=== PATIENT | male | born 1955 | race Caucasian/White ===

== ENCOUNTER 2018-03-22 17:30 | Inpatient (IN) | payer OTHER ==
--- NOTE | 2018-03-22 18:04 | US ---
EXAMINATION TYPE: US venous doppler duplex LE RT DATE OF EXAM: 03/22/2018 4:49 PM COMPARISON: NONE CLINICAL HISTORY: M79.661 Pain in right lower leg, R22.41 swelling r. SIDE PERFORMED: Right TECHNIQUE: The lower extremity deep venous system is examined utilizing real time linear array sonog geeta with graded compression, doppler sonography and color-flow sonography. VESSELS IMAGED: External Iliac Vein (EIV) Common Femoral Vein Deep Femoral Vein Greater Saphenous Vein * Femoral Vein Popliteal Vein Proximal Calf Veins (* superficial vessels) FINDINGS: Grayscale, color doppler, spectral doppler imaging performed of the deep veins of the lower extremities. There is occlusive thrombus from the common femoral vein contiguously through the proximal calf veins . These deep venous structures are distended with absence of color Doppler flow. IMPRESSION: RIGHT LOWER EXTREMITY: EXTENSIVE OCCLUSIVE ACUTE DEEP VENOUS THROMBUS. Communications note: Called answering service of the ordering provider. Then, at 5:50 PM discussed th e abnormal findings with the area director who had just returned from the Emergency Department - where the patient was just admitted for the abnormal ultrasound results.
--- NOTE | 2018-03-22 19:59 | ED ---
Extremity Problem HPI - General Chief complaint: Extremity Problem,Nontraumatic Stated complaint: Poss DVT Time Seen by Provider: 03/22/18 19:35 Source: patient, RN notes reviewed Mode of arrival: ambulatory Limitations: no limitations - History of Present Illness Initial comments: This is a 62-year-old male who presents to the emergency department with chief complaint of blood clot. Patient states over the weekend he noticed swelling and pressure to his right leg that extends from his calf to his groin. He was seen at his family physician's office today and they sent him into the hospital for ultrasound to rule out a DVT. Ultrasound venous Doppler duplex of the right lower extremity revealed evidence for a contiguous extensive acute deep venous thrombosis extending from the proximal calf veins to the common femoral vein. Patient denies any chest pain or shortness of breath. Denies fevers or chills. He states he would prefer to be discharged home as his insurance does not cover inpatient hospital stays. - Related Data Allergies Allergy/AdvReac Type Severity Reaction Status Date / Time No Known Allergies Allergy Verified 03/22/18 17:55 Review of Systems ROS Statement: Those systems with pertinent positive or pertinent negative responses have been documented in the HPI. ROS Other: All systems not noted in ROS Statement are negative. Past Medical History Past Medical History: No Reported History History of Any Multi-Drug Resistant Organisms: None Reported Past Surgical History: Cholecystectomy, Joint Replacement Additional Past Surgical History / Comment(s): bilateral hip replacement Past Psychological History: No Psychological Hx Reported Smoking Status: Never smoker Past Alcohol Use History: Daily, Occasional Past Drug Use History: None Reported General Exam - General Exam Comments Initial Comments: General: Awake and alert, well-developed; in no apparent distress. HEENT: Head atraumatic, normocephalic. Pupils are equal, round and reactive to light. Extraocular movements intact. Oropharynx moist without erythema or exudate. Neck: Supple. Normal ROM. Cardiovascular: Regular rate and rhythm. No murmurs, rubs or gallops. Chest symmetrical. Respiratory: Lungs clear to auscultation bilaterally. No wheezes, rales or rhonchi. Normal respiratory effort with no use of accessory muscles. Musculoskeletal: Diffuse swelling and tenderness to the right calf. Sensation is intact. Pedal pulses are 2+ equal and palpable bilaterally. Skin: Gustine, warm and dry without rashes or lesions. Neurological: Alert and oriented x3. CN II-XII grossly intact. Speech is fluent and answers are appropriate. No focal neuro deficits. Psychiatric: Normal mood and affect. No overt signs of depression or anxiety noted. Limitations: no limitations Course Vital Signs 03/22/18 17:52 Temperature 98.5 F Pulse Rate 95 Respiratory 20 Rate Blood Pressure 208/109 O2 Sat by Pulse 97 Oximetry Medical Decision Making - Medical Decision Making This is a 62-year-old male who presents to the emergency department with chief complaint of DVT. Patient has an extensive acute deep venous thrombosis extending from the right common femoral vein to the proximal calf veins. Discussed admission with patient who at first is resistant. He states he does not have healthcare coverage for admission to the hospital. Discussed the patient can be written a prescription for Eliquis but will have to sign out AMA. After a couple discussions, patient agrees to be admitted. High intensity heparin is ordered. Patient will be admitted to Dr. Peacock. Patient is in no acute distress. - Radiology Data Radiology results: report reviewed Ultrasound venous Doppler duplex right lower extremity impression: Right lower extremity extensive occlusive acute deep venous thrombosis. This extends from the common femoral vein contiguously through the proximal calf veins. Disposition Clinical Impression: Deep vein thrombosis of lower extremity Disposition: ADMITTED IP TO THIS HOSP Condition: Fair Is patient prescribed a controlled substance at d/c from ED?: No Referrals: Jovany Yadav MD [Primary Care Provider] - 1-2 days Time of Disposition: 20:45
[2018-03-22] MEDS ORDERED: HEPARIN SODIUM,PORCINE 5,000 UNIT/ML 1 ML VIAL IV PRN (20:23)
[2018-03-22] MEDS ORDERED: HEPARIN SODIUM,PORCINE 5,000 UNIT/ML 1 ML VIAL IV ONE (20:23)
[2018-03-22] MEDS ORDERED: ACETAMINOPHEN TAB 325 MG TAB PO PRN (20:43)
[2018-03-22] MEDS ORDERED: IBUPROFEN 400 MG TAB PO PRN (20:43)
[2018-03-22 21:00] LABS: Basophils # (A) 0.1 k/uL (0-0.2); Basophils % (A) 1 %; Eosinophils # (A) 0.2 k/uL (0-0.7); Eosinophils % (A) 3 %; HCT 42.2 % (39.0-53.0); HGB 14.7 gm/dL (13.0-17.5); Lymphocytes # (A) 2.6 k/uL (1.0-4.8); Lymphocytes % (A) 33 %; MCH 32.1 pg (25.0-35.0); MCHC 34.8 g/dL (31.0-37.0); MCV 92.2 fL (80.0-100.0); Mean Platelet Volume 7.8; Monocytes # (A) 0.4 k/uL (0-1.0); Monocytes % (A) 6 %; Neutrophils # (A) 4.3 k/uL (1.3-7.7); Neutrophils % (A) 55 %; Platelet Count 171 k/uL (150-450); RBC 4.58 m/uL (4.30-5.90); RDW 13.4 % (11.5-15.5); WBC 7.8 k/uL (3.8-10.6)
[2018-03-22] MEDS ORDERED: cloNIDine HCL 0.2 MG TAB PO STA (21:02)
[2018-03-22 21:09] LABS: ALT 96 U/L (21-72); AST 108 U/L (17-59); Albumin 4.6 g/dL (3.5-5.0); Alkaline Phosphatase 62 U/L (38-126); Anion Gap 12 mmol/L; Blood Urea Nitrogen 20 mg/dL (9-20); Calcium 10.1 mg/dL (8.4-10.2); Carbon Dioxide 24 mmol/L (22-30); Chloride 105 mmol/L (98-107); Glucose 139 mg/dL (74-99); Sodium 141 mmol/L (137-145); Total Bilirubin 0.9 mg/dL (0.2-1.3); Total Protein 8.4 g/dL (6.3-8.2)
[2018-03-22 21:11] LABS: Potassium 4.4 mmol/L (3.5-5.1)
[2018-03-22 21:12] LABS: Partial Thromboplastin Time 22.1 sec (22.0-30.0); Prothrombin Time 10.1 sec (9.0-12.0)
[2018-03-22] MEDS: HEPARIN SOD,PORK IN 0.45% NACL 25,000 UNIT in 0.45% NACL 1 500ML.BAG IV SCH (21:36)
[2018-03-22] MEDS: SODIUM CHLORIDE 0.9% 1,000 ML IV SCH (21:41)
[2018-03-23 03:00] LABS: Basophils # (A) 0.1 k/uL (0-0.2); Basophils % (A) 1 %; Eosinophils # (A) 0.4 k/uL (0-0.7); Eosinophils % (A) 6 %; HCT 40.1 % (39.0-53.0); HGB 13.2 gm/dL (13.0-17.5); Lymphocytes % (A) 40 %; MCH 30.6 pg (25.0-35.0); MCV 92.8 fL (80.0-100.0); Mean Platelet Volume 7.1; Monocytes # (A) 0.4 k/uL (0-1.0); Monocytes % (A) 5 %; Neutrophils # (A) 3.5 k/uL (1.3-7.7); Neutrophils % (A) 46 %; Platelet Count 145 k/uL (150-450); RBC 4.32 m/uL (4.30-5.90); RDW 13.6 % (11.5-15.5); WBC 7.5 k/uL (3.8-10.6)
[2018-03-23 03:23] LABS: INR 1.2 (<1.2); Partial Thromboplastin Time 74.6 sec (22.0-30.0); Prothrombin Time 11.2 sec (9.0-12.0)
[2018-03-23 03:28] VITALS: BMI 37.9
[2018-03-23] MEDS: SODIUM CHLORIDE 0.9% 1,000 ML IV SCH (06:12)
[2018-03-23] MEDS: HEPARIN SOD,PORK IN 0.45% NACL 25,000 UNIT in 0.45% NACL 1 500ML.BAG IV SCH ×2 (09:20→20:53)
[2018-03-23] MEDS ORDERED: IPRATROPIUM-ALBUTEROL 3 ML NEB INHALATION PRN (10:51)
--- NOTE | 2018-03-23 21:16 | P.HPIM ---
History of Present Illness H&P Date: 03/23/18 Chief Complaint: Right lower extremity swelling Patient is a 60-year-old male with a known history of gout, previous DVT came to ER with complaints of right lower extremities swelling. Patient says that over the weekend he notices swelling of the right ankle which gradually extended to his cough and to the groin. Patient was also complaining of pain in the right lower extremity which is worsening. Patient initially seen by his primary care physician and was sent to the hospital for ultrasound of the legs to rule out DVT. Right lower activity duplex scan showed evidence of contiguous extensive acute DVT extending from the proximal calf veins to the common femoral vein. Patient otherwise denied any complaints of fever or chills. No complaints of chest pain. Denied any recent illnesses. Denied recent trauma. No family history of DVT as per the patient. Blood pressure on admission 208/109 mmhg Review of Systems Constitutional: Patient denies any fever or chills . No generalized weakness or weight loss. Abdomen: Patient denied nausea vomiting and diarrhea and abdominal pain. Cardiovascular: Patient denies any chest pain or short of breath no palpitations. Respiratory: patient denied any cough is from production. No shortness of breath Neurologic: Patient denied any numbness or tingling headache. Musculoskeletal: Patient denies any complaints of joint swelling or deformity. Right lower extremity swelling Skin: Negative Psychiatric: Negative Endocrine: No heat or cold intolerance. No recent weight gain. Genitourinary: No dysuria or hematuria. All other 14 point ROS negative except the above Past Medical History Past Medical History: Deep Vein Thrombosis (DVT) Additional Past Medical History / Comment(s): Current DVT right leg (no history of DVTs), gout. History of Any Multi-Drug Resistant Organisms: None Reported Past Surgical History: Cholecystectomy, Joint Replacement Additional Past Surgical History / Comment(s): Bilateral hip replacement. Past Anesthesia/Blood Transfusion Reactions: No Reported Reaction Past Psychological History: No Psychological Hx Reported Smoking Status: Former smoker Past Alcohol Use History: Daily, Occasional Additional Past Alcohol Use History / Comment(s): States he drinks most days but states he doesn't drink enough to experience withdrawal. Past Drug Use History: None Reported - Past Family History Mother Family Medical History: Chest Pain / Angina, Diabetes Mellitus Additional Family Medical History / Comment(s): Diabetes on mother's side of the family. Father Family Medical History: Diabetes Mellitus Additional Family Medical History / Comment(s): Diabetes on father's side of the family. Medications and Allergies Home Medications Medication Instructions Recorded Confirmed Type Acetaminophen [Tylenol] 650 mg PO Q4H PRN 03/22/18 03/22/18 History Ibuprofen [Motrin Ib] 400 mg PO Q6H PRN 03/22/18 03/22/18 History Allergies Allergy/AdvReac Type Severity Reaction Status Date / Time No Known Allergies Allergy Verified 03/23/18 02:58 Physical Exam Vitals: Vital Signs Temp Pulse Pulse Resp BP BP Pulse Ox 03/23/18 08:02 66 18 03/23/18 07:51 97.8 F 63 18 156/94 98 03/23/18 06:12 98.1 F 72 18 147/89 99 03/22/18 23:00 98.2 F 74 20 164/83 96 03/22/18 22:38 77 18 178/99 96 03/22/18 22:00 74 18 180/90 97 03/22/18 21:18 79 18 169/84 96 03/22/18 20:50 79 18 183/100 95 03/22/18 17:52 98.5 F 95 20 208/109 97 Intake and Output 03/22/18 03/23/18 03/23/18 22:59 06:59 14:59 Intake Total 100 488.459 Balance 100 488.459 Intake: Intake, IV Titration 488.459 Amount Heparin Sod,Pork in 0.45% 488.459 NaCl 25,000 unit In 0.45 % NaCl 1 500ml.bag @ 18 UNITS/KG/HR 41.63 mls/hr IV .Q12H1M [facility] Rx#: [id number] Oral 100 Other: Voiding Method Urinal Toilet Urinal # Voids 1 Weight 115.666 kg 116.573 kg PHYSICAL EXAMINATION: Patient is lying in the bed comfortably, no acute distress, awake alert and oriented.. HEENT: Normocephalic. Neck is supple. Pupils reactive. Nostrils clear. Oral cavity is moist. Ears reveal no drainage. Neck reveals no JVD, carotid bruits, or thyromegaly. CHEST EXAMINATION: Trachea is central. Symmetrical expansion. Lung francois clear to auscultation and percussion. CARDIAC: Normal S1, S2 with no gallops. No murmurs ABDOMEN: Soft. Bowel sounds normal. No organomegaly. No abdominal bruits. Extremities: reveal no edema. No clubbing or cyanosis Neurologically awake, alert, oriented x3 with well-coordinated movements. No focal deficits noted Skin: No rash or skin lesions. Psychiatric: Coperative. Nonsuicidal Musculoskeletal: Right lower extremity swelling up to the thigh. Mild calf tenderness. Results CBC & Chem 7: 03/23/18 02:29 03/22/18 19:35 Labs: Abnormal Lab Results - Last 24 Hours (Table) 03/22/18 03/23/18 03/23/18 Range/Units 19:35 02:29 02:29 Plt Count 145 L (150-450) k/uL INR 1.2 H (<1.2) APTT 74.6 H (22.0-30.0) sec Creatinine 0.64 L (0.66-1.25) mg/dL Glucose 139 H (74-99) mg/dL AST 108 H (17-59) U/L ALT 96 H (21-72) U/L Total Protein 8.4 H (6.3-8.2) g/dL Thrombosis Risk Factor Assmnt - Choose All That Apply Any of the Below Risk Factors Present?: Yes Each Factor Represents 1 point: Obesity (BMI >25), Swollen legs (current) Other Risk Factors: Yes Each Risk Factor Represents 2 Points: Age 61-74 years Other congenital or acquired thrombophilia - If yes, enter type in comment: No Thrombosis Risk Factor Assessment Total Risk Factor Score: 4 Thrombosis Risk Factor Assessment Level: Moderate Risk Assessment and Plan Assessment: Acute right lower extremities DVT with extensive occlusion. Hypertensive urgency on admission. Previous history of DVT Morbid obesity with BMI 38.0 Plan: Patient will be continued on IV heparin and pain management. Patient still having leg swelling and pain. Patient will be started on hydrochlorothiazide/ lisinopril and monitor blood pressures closely. Continue to follow closely. Patient was recommended to follow with hematology as an outpatient for hypercoagulable workup. Continue to follow closely and further recommendations based on the clinical course. Discussed with his at bedside in detail. Time with Patient: Greater than 30
[2018-03-23] MEDS: LISINOPRIL-HCTZ 20-12.5 MG 1 EACH TAB PO SCH (21:39)
[2018-03-24] MEDS: LISINOPRIL-HCTZ 20-12.5 MG 1 EACH TAB PO SCH (07:24)
[2018-03-24 07:47] VITALS: RESP 16; TEMP 98.4
[2018-03-24] MEDS: HEPARIN SOD,PORK IN 0.45% NACL 25,000 UNIT in 0.45% NACL 1 500ML.BAG IV SCH (08:27)
[2018-03-24 09:51] VITALS: BP 154/81; PULSE 71
[2018-03-24 10:03] LABS: INR 1.1 (<1.2); Prothrombin Time 10.6 sec (9.0-12.0)
[2018-03-24 10:11] LABS: Basophils % (A) 1 %; Eosinophils # (A) 0.4 k/uL (0-0.7); Eosinophils % (A) 6 %; HCT 39.7 % (39.0-53.0); HGB 13.4 gm/dL (13.0-17.5); Lymphocytes # (A) 2.4 k/uL (1.0-4.8); Lymphocytes % (A) 38 %; MCH 31.8 pg (25.0-35.0); MCHC 33.8 g/dL (31.0-37.0); MCV 94.1 fL (80.0-100.0); Mean Platelet Volume 7.5; Monocytes # (A) 0.3 k/uL (0-1.0); Monocytes % (A) 5 %; Neutrophils # (A) 3.1 k/uL (1.3-7.7); Neutrophils % (A) 49 %; Platelet Count 178 k/uL (150-450); RBC 4.22 m/uL (4.30-5.90); RDW 13.4 % (11.5-15.5); WBC 6.2 k/uL (3.8-10.6)
[2018-03-24] MEDS: RIVAROXABAN 15 MG TAB PO SCH ×2 (11:14→15:50)
== END 2018-03-24 16:07 | disposition home or self-care (01) | DRG 301 ==
LOC: EC 17:30 → 4MS4W 20:30
PROVIDERS: ADMIT Family Medicine; ATTEND Family Medicine
DX: I82.491 Acute embolism and thrombosis of other specified deep vein of right lower extremity (principal); I16.0 Hypertensive urgency; Z83.3 Family history of diabetes mellitus; Z86.718 Personal history of other venous thrombosis and embolism; Z87.891 Personal history of nicotine dependence; Z96.643 Presence of artificial hip joint, bilateral; M10.9 Gout, unspecified; E66.01 Morbid (severe) obesity due to excess calories; Z68.38 Body mass index [BMI] 38.0-38.9, adult; Z82.49 Family history of ischemic heart disease and other diseases of the circulatory system
CPT/HCPCS: 36415; 80053; 85025; 85610; 85730; 96365; 96376; 99285

== ENCOUNTER 2024-01-29 11:18 | Emergency (ER) | payer MEDICARE ==
[2024-01-29] MEDS ORDERED: SODIUM CHLORIDE 0.9% 1,000 ML BAG ONE (18:34)
--- NOTE | 2024-02-17 06:34 | CT ---
Patient: Jurgen Melendez Ordering Physician: Unknown, Unknown ID: [id number] Phone, Pager: Phone: N/A Pager: N/A : [phone] Age/Gender: 68Y, M Primary Location: N/A Procedure: A/P WO Study Date: 01/29/2024 3:46:00 PM EXAMINATION TYPE: CT abdomen pelvis wo con DATE OF EXAM: 01/29/2024 COMPARISON: None HISTORY: 68-year-old male left upper back pain CT DLP: 1185.4 mGycm. Automated exposure control for dose reduction was used. TECHNIQUE: Contiguous axial scanning of the abdomen and pelvis without IV contrast. Coronal and sagit gal reconstructions performed. FINDINGS: The heart is upper limits of normal in size without pericardial effusion. Extensive coronary artery c alcifications are present. Trace left greater than right pleural effusions with adjacent patchy atelectasis. Noncontrast appearance of the liver, adrenal glands, kidneys, and pancreas within normal limits. Ther e appear to be left upper quadrant varices, possible splenorenal shunt. The spleen is enlarged at 16. 3 cm. Cholecystectomy clips. Retroaortic left renal vein. Mild atherosclerotic calcifications infrarenal abdominal aorta and iliac arteries. No dilated small bowel, free fluid, or free air. No mesenteric or retroperitoneal lymphade nopathy. Normal appendix. Mild stool burden. Mildly redundant sigmoid colon. No pericolonic inflammatory adhikari e. Moderate circumferential bladder wall thickening. These yield visualization is very limited due to ex tensive metal artifact related to the patient's bilateral hip arthroplasties. Unable to adequately vi sualize the prostate gland. No abnormal fluid collection identified in the pelvis or pelvic lymphaden opathy. There is some strandy edema tracking down the left retroperitoneum of unclear etiology. Bones: Degenerative bony ankylosis left SI joint. Additional lower thoracic spine. Hypertrophic facet arthropathy mid to lower lumbar spine. Degenerative grade 1 anterolisthesis L4-L5 and L5-S1. There i s grade 1 retrolisthesis L3-L4. IMPRESSION: 1. Trace pleural effusions with adjacent atelectasis. Extensive coronary artery calcifications. Cong elate for fluid overload state. 2. Moderate circumferential bladder wall thickening may be chronic for the patient. Correlate to exc lude cystitis. Detailed assessment of the pelvis is limited due to extensive metal artifact related t o the patient's hip replacements. 3. 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 Findings are no nspecific but may be seen in the setting of portal venous hypertension.
== END 2024-01-29 21:53 | disposition home or self-care (01) ==
LOC: EC 11:18
CPT/HCPCS: 74176; 87086; 96360; 99284

== ENCOUNTER → 2024-02-19 | Outpatient (CLI) | payer MEDICARE ==
[2024-02-19 12:26] LABS: African American GFR (CKD) >90 (>60 ml/min/1.73 sqM); Blood Urea Nitrogen 34 mg/dL (9-20); Non-African American GFR(CKD) >90 (>60 ml/min/1.73 sqM)
--- NOTE | 2024-02-19 13:35 | CT ---
EXAMINATION TYPE: CT urogram wo/w con CT DLP: 3894 mGycm, Automated exposure control for dose reduction was used. DATE OF EXAM: 02/19/2024 1:10 PM COMPARISON: CT abdomen pelvis most recent from 01/29/2024 CLINICAL INDICATION: Male, 68 years old with history of R31.0 GROSS HEMATURIA; PHH, hematuria TECHNIQUE: Urogram with imaging of the abdomen and pelvis. Coronal and sagittal reformats were performed. No 3-D reconstructions are performed. Contrast used:100 mL of Isovue 300 with IV Contrast, Oral contrast used: None. FINDINGS: LOWER CHEST: Small bilateral pleural effusions. GENITOURINARY: RIGHT KIDNEY AND URETER: No calculi. No hydronephrosis or hydroureter. No renal mass or other lesions . Limited distal ureter secondary to lack of excreted IV contrast and streak artifact with that said urothelial lesions: no filling defect, dilation, stricture or wall thickening. LEFT KIDNEY AND URETER: No calculi. No hydronephrosis or hydroureter. No renal mass or other lesions. Limited distal ureter secondary to lack of excreted IV contrast and streak artifact with that said u rothelial lesions: no filling defect, dilation, stricture or wall thickening. Limited evaluation of the pelvis due to streak artifact from hip arthroplasties. URINARY BLADDER: Not optimally distended. Limited evaluation secondary to partial filling of the blad tarcy with excreted IV contrast. No calculi or obvious mass. REPRODUCTIVE: Unremarkable. ABDOMEN LIVER: Unremarkable. GALLBLADDER AND BILE DUCTS: Gallbladder surgically absent. PANCREAS: Unremarkable. SPLEEN: Unremarkable. ADRENAL GLANDS: Unremarkable. STOMACH AND BOWEL: . No evidence of bowel obstruction. Moderate amount stool in the rectum measuring up to 7.0 cm. PERITONEUM: No evidence of pneumoperitoneum, free fluid, or adenopathy. VASCULATURE: No evidence of aortic aneurysm. Left retroaortic renal vein. MUSCULOSKELETAL: No acute osseous abnormalities, bilateral hip arthroplasties hardware appears intact . LYMPH NODES: No gross evidence for lymphadenopathy. SOFT TISSUE/ABDOMINAL WALL: Unremarkable IMPRESSION: 1. No evidence of urolithiasis or renal/urothelial neoplasm. 2. Limited evaluation of the distal ureters and urinary bladder due to streak artifact. 3. Moderate stool in the rectum.
[2024-02-19 23:01] LABS: Prostate Specific Antigen 1.38 ng/mL (0.000-4.500)
== END | disposition home or self-care (01) ==
LOC: RADCTMAIN 11:31
PROVIDERS: ATTEND Urology
DX: R31.0 Gross hematuria
CPT/HCPCS: 36415; 74178; 74400; 82565; 84153; 84520

== ENCOUNTER 2024-02-21 08:06 | Inpatient (IN) | payer MEDICARE ==
--- NOTE | 2024-02-21 09:31 | CT ---
EXAMINATION TYPE: CT brain wo con DATE OF EXAM: 02/21/2024 COMPARISON: None HISTORY: 68-year-old male with blurry vision, VISION ISSUES TECHNIQUE: Examination was done in axial plane without intravenous contrast. Coronal and sagittal r econstructions performed. CT DLP: 1094.4 mGycm Automated exposure control for dose reduction was used. FINDINGS: There is no evidence of acute intracranial hemorrhage, acute ischemic changes, mass, mass-effect, or extra-axial fluid collection. There is no effacement of cerebral sulci or basal subarachnoid cister ns. There is no hydrocephalus. There is no midline shift. Reese-white matter distinction is preserv ed. Mild patchy periventricular white matter hypodensities. Benign basal ganglionic calcifications. Ather osclerotic calcifications in the carotid siphons. Previous resection changes left mastoid process. Opacification here and within the left middle ear ca vity. Slight rightward nasal septal deviation. Orbits and globes are intact. IMPRESSION: 1. No acute intracranial abnormality seen. 2. Previous resection left mastoid process. There is opacification here and in the left middle ear ca vity. Correlate for any symptoms that would suggest otomastoiditis. [facility], , 02/21/2024 9:29 AM
--- NOTE | 2024-02-21 09:38 | ED ---
Weakness HPI - General Source: patient, family, RN notes reviewed Mode of arrival: wheelchair Limitations: no limitations - History of Present Illness MD Complaint: generalized weakness <Alexus Troncoso - Last Filed: 02/21/24 09:36> <Alfa Mota - Last Filed: 02/21/24 13:03> - General Chief complaint: Weakness Stated complaint: Loss of vision Time Seen by Provider: 02/21/24 09:25 - History of Present Illness Initial comments: Quick Note: This is a 68-year-old male who presents to the emergency department for weakness and nausea. For the last 3 weeks he has been nauseous and refusing to eat. 2 weeks ago his started to noticed him becoming jaundice. He also continues to have hematuria and is following with urology for this. Denies any known history of liver problems. Additionally, last night he started to develop blurry vision, which frightened him. Denies any headaches. (Alexus Troncoso) Dictation was produced using [employer] dictation software. please excuse any grammatical, word or spelling errors. Chief Complaint: 68-year-old male presents to the emergency department blurry vision History of Present Illness: Patient is a 60-year-old male presents emergency department for episode of blurry vision in his right eye states that it became blurry not sure if it lasted for seconds or minutes. Patient was seen here recently, 3 weeks ago for hematuria. He did follow-up with urology currently being worked up. Patient jaundice. states that he has been jaundiced for several weeks. Patient has no other complaints. The ROS documented in this emergency department record has been reviewed and confirmed by me. Those systems with pertinent positive or negative responses have been documented in the HPI. All other systems are other negative and/or noncontributory. (Alfa Mota) - Related Data Home Medications Medication Instructions Recorded Confirmed Acetaminophen [Tylenol] 650 mg PO Q4H PRN 03/22/18 03/22/18 Previous Rx's Medication Instructions Recorded Enoxaparin [Lovenox] 100 mg SQ Q12H 7 Days #14 syr 03/24/18 Lisinopril-Hctz 20-12.5 mg 1 each PO DAILY #30 tab 03/24/18 [Zestoretic 20-12.5] Warfarin [Coumadin] 5 mg PO DAILY 30 Days #30 tab 03/24/18 Allergies Allergy/AdvReac Type Severity Reaction Status Date / Time No Known Allergies Allergy Verified 03/23/18 02:58 Review of Systems ROS Other: All systems not noted in ROS Statement are negative. <Alexus Troncoso - Last Filed: 02/21/24 09:36> ROS Other: All systems not noted in ROS Statement are negative. <Alfa Mota - Last Filed: 02/21/24 13:03> ROS Statement: Those systems with pertinent positive or pertinent negative responses have been documented in the HPI. Past Medical History Past Medical History: Deep Vein Thrombosis (DVT) Additional Past Medical History / Comment(s): Current DVT right leg (no history of DVTs), gout. History of Any Multi-Drug Resistant Organisms: None Reported Past Surgical History: Cholecystectomy, Joint Replacement Additional Past Surgical History / Comment(s): Bilateral hip replacement. Past Anesthesia/Blood Transfusion Reactions: No Reported Reaction Past Psychological History: No Psychological Hx Reported Smoking Status: Never smoker Past Alcohol Use History: Daily, Occasional Past Drug Use History: None Reported - Past Family History Mother Family Medical History: Chest Pain / Angina, Diabetes Mellitus Additional Family Medical History / Comment(s): Diabetes on mother's side of the family. Father Family Medical History: Diabetes Mellitus Additional Family Medical History / Comment(s): Diabetes on father's side of the family. <Alexus Troncoso - Last Filed: 02/21/24 09:36> General Exam Limitations: no limitations <Alexus Troncoso - Last Filed: 02/21/24 09:36> <Alfa Mota - Last Filed: 02/21/24 13:03> - General Exam Comments Initial Comments: Visual Physical Exam Vital signs reviewed General: Well-appearing, nontoxic, no acute distress. Head: Normocephalic, atraumatic Eyes: PERRLA, EOMI ENT: Airway patent Chest: Nonlabored breathing Skin: No visual rash, jaundice Neuro: Alert and oriented 3 Musculoskeletal: No gross abnormalities (Alexus Troncoso) PHYSICAL EXAM: General Impression: Alert and oriented x3, not in acute distress, jaundiced with scleral icterus HEENT: Normocephalic atraumatic, extra-ocular movements intact, pupils equal and reactive to light bilaterally, mucous membranes moist. Cardiovascular: Heart regular rate and rhythm Chest: Able to complete full sentences, no retractions, no tachypnea Abdomen: abdomen soft, non-tender, non-distended, no organomegaly Musculoskeletal: Pulses present and equal in all extremities, no peripheral edema Motor: no focal deficits noted Neurological: CN II-XII grossly intact, no focal motor or sensory deficits noted Skin: Intact with no visualized rashes Psych: Normal affect and mood (Alfa Mota) Course Vital Signs 02/21/24 02/21/24 08:12 10:54 Temperature 98.3 F 98.4 F Pulse Rate 99 94 Respiratory 16 18 Rate Blood Pressure 149/72 127/51 O2 Sat by Pulse 95 96 Oximetry EKG Findings - EKG Comments: EKG Findings:: My EKG interpretation: Ventricular rate 100, sinus tachycardia,. 114, cures 107, QTc 438. No HI prolongation, no QTC prolongation, no ST or T- wave changes noted. Overall, this EKG is unremarkable <Alfa Mota - Last Filed: 02/21/24 13:03> Medical Decision Making <Alexus Troncoso - Last Filed: 02/21/24 09:36> - Lab Data Result diagrams: 02/21/24 09:40 02/21/24 09:40 <Alfa Mota - Last Filed: 02/21/24 13:03> - Medical Decision Making I performed the QuickNote portion of this chart. Signed Alexus Troncoso PA-C. (Alexus Troncoso) Was pt. sent in by a medical professional or institution ([facility], [facility], urgent care, hospital, or fci...) When possible be specific @ -No Did you speak to anyone other than the patient for history (EMS, parent, family, police, friend...)? What history was obtained from this source @ -No Did you review nursing and triage notes (agree or disagree)? Why? @ -I reviewed and agree with nursing and triage notes Were old charts reviewed (outside hosp., previous admission, EMS record, old EKG, old radiological studies, urgent care reports/EKG's, fci records)? Report findings @ -No old charts were reviewed Differential Diagnosis (chest pain, altered mental status, abdominal pain women, abdominal pain men, vaginal bleeding, musculoskeletal, weakness, fever, dyspnea, syncope, headache, dizziness, GI bleed, back pain, seizure, CVA, palpatations, mental health)? @ -Differential Weakness: Hypoglycemia, shock, sepsis, hyponatremia, anemia, infection, VA, ETOH, adverse medicine reaction, overdose, stroke, this is not meant to be an all-inclusive list. Retinal detachment, retinal hemorrhage, occipital mass, central artery retinal occlusion EKG interpreted by me (3pts min.). @ -See above X-rays interpreted by me (1pt min.). @ -Chest x-ray shows pulmonary vascular congestion CT interpreted by me (1pt min.). @ -CT scan the brain shows no acute processes U/S interpreted by me (1pt. min.). @ -None done What testing was considered but not performed or refused? (CT, X-rays, U/S, labs)? Why? @ -None What meds were considered but not given or refused? Why? @ -None Was smoking cessation discussed for >3mins.? @ -No Were there social determinants of health that impacted care today? How? (Homelessness, low income, unemployed, alcoholism, drug addiction, transportation, low edu. Level, literacy, decrease access to med. care, detention, rehab)? @ -No Was there de-escalation of care discussed even if they declined (Discuss DNR or withdrawal of care, Hospice)? DNR status @ -No What co-morbidities impacted this encounter? (DM, HTN, Smoking, COPD, CAD, Cancer, CVA, ARF, Chemo, Hep., AIDS, mental health diagnosis, sleep apnea, morbid obesity)? @ -None Was patient admitted / discharged? Hospital course, mention meds given and route, prescriptions, significant lab abnormalities, going to OR and other pertinent info. @ -68-year-old male presents to the emergency department for chief complaint of right sided ocular visual changes. Patient has been weak and having no appetite. He has seen urologist for hematuria. Has not seen a primary care doctor for his jaundice. Vital signs upon arrival are within acceptable limits. Laboratory evaluation shows anemia of 10.8 which is around his recent baseline. Coag panel shows INR of 1.4. Bilirubin is elevated at 5.2. Conjugated bilirubin of 1.0 unconjugated bilirubin is 2.3. Troponin is 0.229. Patient has no chest pain. Lipase 816. Urinalysis shows hematuria. Patient has not been worked up for the jaundice. Patient be admitted ops with consultation to GI. Did you discuss the management of the patient with other professionals (professionals i.e. , PA, [employer], lab, RT, psych nurse, social service worker, underground electrician, teacher, revenue officer, upper caser)? Give summary @ -Case discussed with Dr. Elliott for observation admission Was critical care preformed (if so, how long)? @ -No Undiagnosed new problem with uncertain prognosis? @ -No Drug Therapy requiring intensive monitoring for toxicity (Heparin, Nitro, Insulin, Cardizem)? @ -No Were any procedures done? @ -No Diagnosis/symptom? Acute, or Chronic, or Acute on Chronic? Uncomplicated (without systemic symptoms) or Complicated (systemic symptoms)? @ -New onset jaundice Side effects of treatment? @ -No Exacerbation, Progression, or Severe Exacerbation? @ -No Poses a threat to life or bodily function? How? (Chest pain, USA, VA, pneumonia, PE, COPD, DKA, ARF, appy, cholecystitis, CVA, Diverticulitis, Homicidal, Suicidal, threat to staff... and all critical care pts) @ -yes (Alfa Mota) - Lab Data Lab Results 02/21/24 02/21/24 02/21/24 Range/Units 09:07 09:40 09:40 WBC 8.5 (3.8-10.6) k/uL RBC 3.36 L (4.30-5.90) m/uL Hgb 10.8 L (13.0-17.5) gm/dL Hct 32.5 L (39.0-53.0) % MCV 96.8 (80.0-100.0) fL MCH 32.3 (25.0-35.0) pg MCHC 33.4 (31.0-37.0) g/dL RDW 16.4 H (11.5-15.5) % Plt Count 94 L (150-450) k/uL MPV 7.8 Neutrophils % 77 % Lymphocytes % 14 % Monocytes % 4 % Eosinophils % 1 % Basophils % 0 % Neutrophils # 6.6 (1.3-7.7) k/uL Lymphocytes # 1.2 (1.0-4.8) k/uL Monocytes # 0.3 (0-1.0) k/uL Eosinophils # 0.1 (0-0.7) k/uL Basophils # 0.0 (0-0.2) k/uL Manual Slide Review Performed Anisocytosis Slight Macrocytosis Slight Rouleaux Present PT 14.6 H (10.0-12.5) sec INR 1.4 H (<1.2) APTT 29.3 (22.0-30.0) sec Sodium (137-145) mmol/L Potassium (3.5-5.1) mmol/L Chloride (98-107) mmol/L Carbon Dioxide (22-30) mmol/L Anion Gap mmol/L BUN (9-20) mg/dL Creatinine (0.66-1.25) mg/dL Est GFR (CKD-EPI)AfAm (>60 ml/min/1.73 sqM) Est GFR (CKD-EPI)NonAf (>60 ml/min/1.73 sqM) Glucose (74-99) mg/dL Plasma Lactic Acid Philippe (0.7-2.0) mmol/L Calcium (8.4-10.2) mg/dL Phosphorus (2.5-4.5) mg/dL Magnesium (1.6-2.3) mg/dL Total Bilirubin (0.2-1.3) mg/dL Conjugated Bilirubin (0.0-0.3) mg/dL Unconjugated Bilirubin (0.0-1.1) mg/dL Delta Bilirubin (0.0-0.2) mg/dL AST (17-59) U/L ALT (4-49) U/L Alkaline Phosphatase (38-126) U/L Troponin I (0.000-0.034) ng/mL Total Protein (6.3-8.2) g/dL Albumin (3.5-5.0) g/dL Amylase (30-110) U/L Lipase (23-300) U/L Urine Color Dark Brown Urine Appearance Cloudy (Clear) Urine pH 5.0 (5.0-8.0) Ur Specific [place] 1.019 (1.001-1.035) Urine Protein Trace H (Negative) Urine Glucose (UA) Negative (Negative) Urine Ketones Negative (Negative) Urine Blood Large H (Negative) Urine Nitrite Negative (Negative) Urine Bilirubin 1+ H (Negative) Urine Urobilinogen 8.0 (<2.0) mg/dL Ur Leukocyte Esterase Trace H (Negative) Urine RBC 96 H (0-5) /hpf Urine WBC 7 H (0-5) /hpf Ur Squamous Epith Cells <1 (0-4) /hpf Amorphous Sediment Moderate H (None) /hpf Urine Bacteria Rare H (None) /hpf Urine Mucus Rare H (None) /hpf 02/21/24 02/21/24 02/21/24 Range/Units 09:40 09:40 09:40 WBC (3.8-10.6) k/uL RBC (4.30-5.90) m/uL Hgb (13.0-17.5) gm/dL Hct (39.0-53.0) % MCV (80.0-100.0) fL MCH (25.0-35.0) pg MCHC (31.0-37.0) g/dL RDW (11.5-15.5) % Plt Count (150-450) k/uL MPV Neutrophils % % Lymphocytes % % Monocytes % % Eosinophils % % Basophils % % Neutrophils # (1.3-7.7) k/uL Lymphocytes # (1.0-4.8) k/uL Monocytes # (0-1.0) k/uL Eosinophils # (0-0.7) k/uL Basophils # (0-0.2) k/uL Manual Slide Review Anisocytosis Macrocytosis Rouleaux PT (10.0-12.5) sec INR (<1.2) APTT (22.0-30.0) sec Sodium 132 L (137-145) mmol/L Potassium 4.3 (3.5-5.1) mmol/L Chloride 103 (98-107) mmol/L Carbon Dioxide 22 (22-30) mmol/L Anion Gap 7 mmol/L BUN 35 H (9-20) mg/dL Creatinine 0.75 (0.66-1.25) mg/dL Est GFR (CKD-EPI)AfAm >90 (>60 ml/min/1.73 sqM) Est GFR (CKD-EPI)NonAf >90 (>60 ml/min/1.73 sqM) Glucose 135 H (74-99) mg/dL Plasma Lactic Acid Philippe 1.5 (0.7-2.0) mmol/L Calcium 8.7 (8.4-10.2) mg/dL Phosphorus 3.8 (2.5-4.5) mg/dL Magnesium 1.9 (1.6-2.3) mg/dL Total Bilirubin 5.2 H (0.2-1.3) mg/dL Conjugated Bilirubin 1.0 H (0.0-0.3) mg/dL Unconjugated Bilirubin 2.3 H (0.0-1.1) mg/dL Delta Bilirubin 1.9 H (0.0-0.2) mg/dL AST 59 (17-59) U/L ALT 18 (4-49) U/L Alkaline Phosphatase 113 (38-126) U/L Troponin I 0.229 H* (0.000-0.034) ng/mL Total Protein 7.7 (6.3-8.2) g/dL Albumin 3.1 L (3.5-5.0) g/dL Amylase 119 H (30-110) U/L Lipase 816 H (23-300) U/L Urine Color Urine Appearance (Clear) Urine pH (5.0-8.0) Ur Specific [place] (1.001-1.035) Urine Protein (Negative) Urine Glucose (UA) (Negative) Urine Ketones (Negative) Urine Blood (Negative) Urine Nitrite (Negative) Urine Bilirubin (Negative) Urine Urobilinogen (<2.0) mg/dL Ur Leukocyte Esterase (Negative) Urine RBC (0-5) /hpf Urine WBC (0-5) /hpf Ur Squamous Epith Cells (0-4) /hpf Amorphous Sediment (None) /hpf Urine Bacteria (None) /hpf Urine Mucus (None) /hpf Disposition <Alexus Troncoso - Last Filed: 02/21/24 09:36> Decision Time: 13:03 <Alfa Mota - Last Filed: 02/21/24 13:03> Clinical Impression: Jaundice Disposition: ADMITTED IP TO THIS HOSP Condition: Fair Referrals: Debbie Lane III, MD [Primary Care Provider] - 1-2 days
[2024-02-21 09:48] LABS: Anisocytosis Slight; Basophils % (A) 0 %; Eosinophils # (A) 0.1 k/uL (0-0.7); Eosinophils % (A) 1 %; HCT 32.5 % (39.0-53.0); HGB 10.8 gm/dL (13.0-17.5); Lymphocytes # (A) 1.2 k/uL (1.0-4.8); Lymphocytes % (A) 14 %; MCH 32.3 pg (25.0-35.0); MCHC 33.4 g/dL (31.0-37.0); MCV 96.8 fL (80.0-100.0); Macrocytosis Slight; Mean Platelet Volume 7.8; Monocytes # (A) 0.3 k/uL (0-1.0); Monocytes % (A) 4 %; Neutrophils # (A) 6.6 k/uL (1.3-7.7); Neutrophils % (A) 77 %; RBC 3.36 m/uL (4.30-5.90); RDW 16.4 % (11.5-15.5); WBC 8.5 k/uL (3.8-10.6)
[2024-02-21 09:55] LABS: Amorphous Sediment,Urine Moderate /hpf; Appearance,Urine Cloudy (Clear); Bacteria,Urine Rare /hpf; Bilirubin,Urine 1+ (Negative); Blood,Urine Large (Negative); Color,Urine Dark Brown; Glucose,Urine (UA) Negative (Negative); Ketones,Urine Negative (Negative); Leukocyte Esterase,Urine Trace (Negative); Mucus,Urine Rare /hpf; Nitrite,Urine Negative (Negative); Protein,Urine Trace (Negative); RBC,Urine 96 /hpf (0-5); Specific Gravity,Urine 1.019 (1.001-1.035); Squamous Epithelial Cell,Urine <1 /hpf (0-4); WBC,Urine 7 /hpf (0-5)
[2024-02-21 10:01] LABS: INR 1.4 (<1.2); Partial Thromboplastin Time 29.3 sec (22.0-30.0); Prothrombin Time 14.6 sec (10.0-12.5)
[2024-02-21 10:05] LABS: ALT 18 U/L (4-49); AST 59 U/L (17-59); African American GFR (CKD) >90 (>60 ml/min/1.73 sqM); Albumin 3.1 g/dL (3.5-5.0); Alkaline Phosphatase 113 U/L (38-126); Amylase 119 U/L (30-110); Anion Gap 7 mmol/L; Bilirubin, Delta 1.9 mg/dL (0.0-0.2); Bilirubin,Unconjugated 2.3 mg/dL (0.0-1.1); Blood Urea Nitrogen 35 mg/dL (9-20); Calcium 8.7 mg/dL (8.4-10.2); Carbon Dioxide 22 mmol/L (22-30); Chloride 103 mmol/L (98-107); Glucose 135 mg/dL (74-99); Lipase 816 U/L (23-300); Magnesium 1.9 mg/dL (1.6-2.3); Non-African American GFR(CKD) >90 (>60 ml/min/1.73 sqM); Phosphorus 3.8 mg/dL (2.5-4.5); Potassium 4.3 mmol/L (3.5-5.1); Sodium 132 mmol/L (137-145); Total Bilirubin 5.2 mg/dL (0.2-1.3); Total Protein 7.7 g/dL (6.3-8.2)
--- NOTE | 2024-02-21 10:21 | XR ---
EXAMINATION TYPE: XR chest 2V DATE OF EXAM: 02/21/2024 COMPARISON: None HISTORY: 68-year-old male with weakness TECHNIQUE: AP and lateral views FINDINGS: Heart borderline in size. Interstitial densities. Small bilateral pleural effusions and bibasilar [place]. IMPRESSION: 1. Correlate for CHF with pulmonary vascular congestion. 2. Small bilateral pleural effusions with adjacent atelectasis and/or consolidation. [facility], , 02/21/2024 10:18 AM
[2024-02-21 11:11] LABS: Platelet Count 94 k/uL (150-450)
[2024-02-21 11:12] LABS: Rouleaux Present
[2024-02-21] MEDS ORDERED: NALOXONE 0.4 MG/ML 1 ML VIAL IV PRN (12:53)
[2024-02-21] MEDS: SODIUM CHLORIDE 0.9% 1,000 ML IV SCH (13:23)
--- NOTE | 2024-02-21 15:00 | P.HPIM ---
History of Present Illness H&P Date: 02/21/24 Patient is a 68-year-old male with no significant past medical history presenting with right-sided blurry vision which lasted 5 minutes. He is also complaining of decreased appetite, weakness, new onset jaundice for the last 2 months. Patient is a very poor historian. He claims that he has been getting worked up for the stones as outpatient. Of note, patient was recently in the hospital for hematuria and was referred to urology outpatient. Currently he denies any chest pain, has occasional shortness of breath. Denies any abdominal pain, nausea, vomiting, urinary or bowel complaints. He denies any one-sided weakness or slurred speech. He denies any fevers, chills, weight loss, weight gain, travel history or sick contacts. He claims that he was drinking heavily during his earlier years and has been drinking 20+ oz of beer pretty much daily and stopped recently about 2 months ago. In the ED, temperature was 98.3, pulse 99, respiratory rate 16, blood pressure 149/72, saturating at 95% on room air. WBC 8.5, hemoglobin 10.8, platelet 94, INR 1.4, sodium 132, creatinine 0.75, total bili 5.2, conjugated bili 0.1, unconjugated 2.3, AST 59, ALT 18, ALP 113, troponin 0. due to 9, lipase 816, large blood and urinalysis. EKG independently interpreted, shows sinus tachycar audelia. CT head does not show any acute process. Patient admitted for worsening jaundice and possible TIA GI and neurology consulted. Pertinent positives and negatives as discussed in HPI, a complete review of systems was performed and all other systems are negative. Patient seen and examined at bedside. Vital signs reviewed General: nontoxic, no distress, appears at stated age, obese Derm: warm, dry, jaundice Head: atraumatic, normocephalic, symmetric Eyes: EOMI, no lid lag, scleral icterus, pupils equal round reactive to light ENT: Nose and ears atraumatic Neck: No thyromegaly, supple Mouth: no lip lesion, mucus membranes moist Cardiovascular: S1S2 reg, systolic murmur, trace peripheral edema Lungs: clear to auscultation bilateral, no rhonchi, no rales, no wheeze, no accessory muscle use Abdominal: soft, nontender to palpation, no guarding, no appreciable organomegaly Ext: no gross muscle atrophy, muscle strength muscle strength 5 out of 5 in all 4 extremities, no contractures Neuro: CN II-XII grossly intact Psych: Alert, oriented, appropriate affect Assessment/Plan: Active: Liver failure, acute versus chronic Splenomegaly Normocytic anemia secondary to above Thrombocytopenia secondary to above Elevated INR, secondary to above Hyperbilirubinemia Mild hyponatremia Elevated lipase -Patient has a history of heavy alcohol use, possibly alcoholic cirrhosis -GI consulted -Patient not on any medications at home -Acute hepatitis panel ordered -Recent CT abdomen pelvis from last month showed splenomegaly and 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 Surrogate decision-maker: Spouse CODE STATUS: Full code DVT prophylaxis: SCDs Anticipated discharge date: Pending clinical course Anticipated discharge place: Pending clinical course A total of 55 minutes was spent on the care of this complex patient more than 50% of the time was spent in counseling and care coordination. Past Medical History Past Medical History: Deep Vein Thrombosis (DVT) Additional Past Medical History / Comment(s): Current DVT right leg (no history of DVTs), gout. History of Any Multi-Drug Resistant Organisms: None Reported Past Surgical History: Cholecystectomy, Joint Replacement Additional Past Surgical History / Comment(s): Bilateral hip replacement. Past Anesthesia/Blood Transfusion Reactions: No Reported Reaction Past Psychological History: No Psychological Hx Reported Smoking Status: Never smoker Past Alcohol Use History: Daily, Occasional Past Drug Use History: None Reported - Past Family History Mother Family Medical History: Chest Pain / Angina, Diabetes Mellitus Additional Family Medical History / Comment(s): Diabetes on mother's side of the family. Father Family Medical History: Diabetes Mellitus Additional Family Medical History / Comment(s): Diabetes on father's side of the family. Medications and Allergies Home Medications Medication Instructions Recorded Confirmed Type No Known Home Medications 02/21/24 02/21/24 History Allergies Allergy/AdvReac Type Severity Reaction Status Date / Time No Known Allergies Allergy Verified 02/21/24 13:04 Physical Exam Vitals: Vital Signs Temp Pulse Resp BP Pulse Ox 02/21/24 13:55 86 16 137/64 100 02/21/24 10:54 98.4 F 94 18 127/51 96 02/21/24 08:12 98.3 F 99 16 149/72 95 Intake and Output 02/20/24 02/21/24 02/21/24 22:59 06:59 14:59 Other: Weight 104.326 kg Results CBC & Chem 7: 02/21/24 09:40 02/21/24 09:40 Labs: Abnormal Lab Results - Last 24 Hours (Table) 02/21/24 02/21/24 02/21/24 Range/Units 09:07 09:40 09:40 RBC 3.36 L (4.30-5.90) m/uL Hgb 10.8 L (13.0-17.5) gm/dL Hct 32.5 L (39.0-53.0) % RDW 16.4 H (11.5-15.5) % Plt Count 94 L (150-450) k/uL PT 14.6 H (10.0-12.5) sec INR 1.4 H (<1.2) Sodium (137-145) mmol/L BUN (9-20) mg/dL Glucose (74-99) mg/dL Total Bilirubin (0.2-1.3) mg/dL Conjugated Bilirubin (0.0-0.3) mg/dL Unconjugated Bilirubin (0.0-1.1) mg/dL Delta Bilirubin (0.0-0.2) mg/dL Troponin I (0.000-0.034) ng/mL Albumin (3.5-5.0) g/dL Amylase (30-110) U/L Lipase (23-300) U/L Urine Protein Trace H (Negative) Urine Blood Large H (Negative) Urine Bilirubin 1+ H (Negative) Ur Leukocyte Esterase Trace H (Negative) Urine RBC 96 H (0-5) /hpf Urine WBC 7 H (0-5) /hpf Amorphous Sediment Moderate H (None) /hpf Urine Bacteria Rare H (None) /hpf Urine Mucus Rare H (None) /hpf 02/21/24 02/21/24 Range/Units 09:40 09:40 RBC (4.30-5.90) m/uL Hgb (13.0-17.5) gm/dL Hct (39.0-53.0) % RDW (11.5-15.5) % Plt Count (150-450) k/uL PT (10.0-12.5) sec INR (<1.2) Sodium 132 L (137-145) mmol/L BUN 35 H (9-20) mg/dL Glucose 135 H (74-99) mg/dL Total Bilirubin 5.2 H (0.2-1.3) mg/dL Conjugated Bilirubin 1.0 H (0.0-0.3) mg/dL Unconjugated Bilirubin 2.3 H (0.0-1.1) mg/dL Delta Bilirubin 1.9 H (0.0-0.2) mg/dL Troponin I 0.229 H* (0.000-0.034) ng/mL Albumin 3.1 L (3.5-5.0) g/dL Amylase 119 H (30-110) U/L Lipase 816 H (23-300) U/L Urine Protein (Negative) Urine Blood (Negative) Urine Bilirubin (Negative) Ur Leukocyte Esterase (Negative) Urine RBC (0-5) /hpf Urine WBC (0-5) /hpf Amorphous Sediment (None) /hpf Urine Bacteria (None) /hpf Urine Mucus (None) /hpf
[2024-02-21] MEDS: PANTOPRAZOLE 40 MG/10 ML VIAL IVP SCH (15:46)
[2024-02-21] MEDS: ZOLPIDEM 5 MG TAB PO PRN (22:56)
--- NOTE | 2024-02-22 08:30 | US ---
EXAMINATION TYPE: US portal vein DATE OF EXAM: 02/22/2024 COMPARISON: 02/19/2024. CLINICAL INDICATION: Male, 68 years old with history of liver failure; possible portal hypertension, jaundice, cholecystectomy EXAM MEASUREMENTS: Liver Length: 14.9 Gallbladder Wall: surgically absent CBD: 0.7 Right Kidney: 11.3 x 5.9 x 6.6 ANATOMY: Pancreas: wnl Liver: intercostal imaging Color flow patency within the portal vein: wnl Portal Vein Flow: Hepatopetal Gallbladder: surgically absent Evidence for sonographic Sanford's sign: no CBD: wnl Right Kidney: wnl Ascites noted? no right pleural effusion The main portal vein is patent the right and left portal veins demonstrate hepatopedal flow. No evide nce for thrombus. IMPRESSION: No evidence for portal vein thrombus. Appropriate flow direction of the portal venous system. [facility], , 02/22/2024 8:28 AM
[2024-02-22 09:10] LABS: Anisocytosis Slight; Basophils % (A) 0 %; Eosinophils # (A) 0.1 k/uL (0-0.7); Eosinophils % (A) 1 %; HCT 30.2 % (39.0-53.0); HGB 9.9 gm/dL (13.0-17.5); Lymphocytes % (A) 13 %; MCH 32.1 pg (25.0-35.0); MCHC 32.8 g/dL (31.0-37.0); MCV 97.6 fL (80.0-100.0); Macrocytosis Slight; Mean Platelet Volume 8.2; Monocytes # (A) 0.4 k/uL (0-1.0); Monocytes % (A) 5 %; Neutrophils % (A) 77 %; RBC 3.09 m/uL (4.30-5.90); RDW 16.6 % (11.5-15.5); WBC 7.8 k/uL (3.8-10.6)
[2024-02-22 09:28] LABS: ALT 17 U/L (4-49); AST 54 U/L (17-59); African American GFR (CKD) >90 (>60 ml/min/1.73 sqM); Albumin 2.7 g/dL (3.5-5.0); Alkaline Phosphatase 108 U/L (38-126); Anion Gap 6 mmol/L; Blood Urea Nitrogen 43 mg/dL (9-20); Calcium 8.6 mg/dL (8.4-10.2); Carbon Dioxide 22 mmol/L (22-30); Chloride 103 mmol/L (98-107); Glucose 113 mg/dL (74-99); Non-African American GFR(CKD) 90 (>60 ml/min/1.73 sqM); Potassium 4.4 mmol/L (3.5-5.1); Sodium 131 mmol/L (137-145); Total Bilirubin 4.7 mg/dL (0.2-1.3)
[2024-02-22 09:56] LABS: Platelet Count 93 k/uL (150-450)
--- NOTE | 2024-02-22 11:08 | P.CONS ---
History of Present Illness - Reason for Consult Consult date: 02/22/24 Jaundice Requesting physician: Alfa Mota - Chief Complaint Weakness and blurred vision - History of Present Illness This is a pleasant 68-year-old male who presented to the emergency department with complaints of weakness, decreased appetite with nausea over the last 3 weeks duration and no developed blurry vision. Past medical history includes deep vein thrombosis, hematuria following with urology and alcohol abuse. States that he has been drinking alcohol regularly since being in [place]. Admits to drinking 2-3 beers a day. States he quit drinking about 2 weeks ago. No previous known history of liver disease. Denies any known history of hepatitis. He had elevated bilirubin on admission with mildly elevated amylase and lipase. He had a CT of the abdomen pelvis and January 2024 that reported splenomegaly, left upper quadrant varices and splenorenal shunting correlate for portal hypertension. He had a portal vein ultrasound during this admission with no noted portal thrombosis. Review of Systems REVIEW OF SYSTEMS: CARDIOPULMONARY: No chest pain or shortness of breath. Gastrointestinal: No abdominal pain. No nausea or vomiting. No hematemesis, coffee-ground emesis. No rectal bleeding, or melena. Decreased appetite. GENITOURINARY: No dysuria or hematuria. MUSCULOSKELETAL: Reports normal range of motion., Joint pain. SKIN: No rashes. No jaundice. Lower extremity edema. ENDOCRINE: No chills, fevers. No excessive weight gain or loss. No polydipsia or polyuria. PSYCHIATRIC: Unremarkable. NEUROLOGY: No change in mental status. Denies dizziness, headache. ENT: Vision unremarkable. CONSTITUTIONAL: No recent weight loss. No fever, chills, night sweats. Past Medical History Past Medical History: Deep Vein Thrombosis (DVT) Additional Past Medical History / Comment(s): Current DVT right leg (no history of DVTs), gout. History of Any Multi-Drug Resistant Organisms: None Reported Past Surgical History: Cholecystectomy, Joint Replacement Additional Past Surgical History / Comment(s): Bilateral hip replacement. Past Anesthesia/Blood Transfusion Reactions: No Reported Reaction Past Psychological History: No Psychological Hx Reported Smoking Status: Never smoker Past Alcohol Use History: Daily, Occasional Past Drug Use History: None Reported - Past Family History Mother Family Medical History: Chest Pain / Angina, Diabetes Mellitus Additional Family Medical History / Comment(s): Diabetes on mother's side of the family. Father Family Medical History: Diabetes Mellitus Additional Family Medical History / Comment(s): Diabetes on father's side of the family. Medications and Allergies Home Medications Medication Instructions Recorded Confirmed Type No Known Home Medications 02/21/24 02/21/24 History Allergies Allergy/AdvReac Type Severity Reaction Status Date / Time No Known Allergies Allergy Verified 02/21/24 13:04 Physical Exam Vitals: Vital Signs Temp Pulse Resp BP Pulse Ox 02/22/24 08:40 93 16 149/68 100 02/22/24 07:30 98.4 F 94 18 134/60 100 02/22/24 06:51 98 20 156/66 98 02/22/24 04:49 98 19 138/80 98 02/21/24 22:51 86 18 129/59 98 02/21/24 17:18 16 L 16 136/77 99 02/21/24 15:42 90 16 02/21/24 13:55 86 16 137/64 100 02/21/24 10:54 98.4 F 94 18 127/51 96 General appearance: The patient is alert, oriented, appears in no acute distress. HET: Head is normocephalic and atraumatic. Conjunctiva pink. Sclera anicteric. Neck: Supple without lymphadenopathy. Trachea midline. Heart: Regular. Lungs: Equal expansion, normal respiratory effort. Abdomen: Soft, nontender, nondistended. Skin: No rashes. No jaundice. Extremities: Normal skin color and turgor. Lower extremity swelling. Neurological: No focal deficits. Alert and oriented x3. Results CBC & Chem 7: 02/22/24 08:59 02/22/24 08:59 Labs: Abnormal Lab Results - Last 24 Hours (Table) 02/21/24 02/21/24 02/21/24 Range/Units 09:07 09:40 09:40 RBC 3.36 L (4.30-5.90) m/uL Hgb 10.8 L (13.0-17.5) gm/dL Hct 32.5 L (39.0-53.0) % RDW 16.4 H (11.5-15.5) % Plt Count 94 L (150-450) k/uL PT 14.6 H (10.0-12.5) sec INR 1.4 H (<1.2) Sodium (137-145) mmol/L BUN (9-20) mg/dL Glucose (74-99) mg/dL Total Bilirubin (0.2-1.3) mg/dL Conjugated Bilirubin (0.0-0.3) mg/dL Unconjugated Bilirubin (0.0-1.1) mg/dL Delta Bilirubin (0.0-0.2) mg/dL Troponin I (0.000-0.034) ng/mL Albumin (3.5-5.0) g/dL Amylase (30-110) U/L Lipase (23-300) U/L Urine Protein Trace H (Negative) Urine Blood Large H (Negative) Urine Bilirubin 1+ H (Negative) Ur Leukocyte Esterase Trace H (Negative) Urine RBC 96 H (0-5) /hpf Urine WBC 7 H (0-5) /hpf Amorphous Sediment Moderate H (None) /hpf Urine Bacteria Rare H (None) /hpf Urine Mucus Rare H (None) /hpf 02/21/24 02/21/24 02/21/24 Range/Units 09:40 09:40 17:37 RBC (4.30-5.90) m/uL Hgb (13.0-17.5) gm/dL Hct (39.0-53.0) % RDW (11.5-15.5) % Plt Count (150-450) k/uL PT (10.0-12.5) sec INR (<1.2) Sodium 132 L (137-145) mmol/L BUN 35 H (9-20) mg/dL Glucose 135 H (74-99) mg/dL Total Bilirubin 5.2 H (0.2-1.3) mg/dL Conjugated Bilirubin 1.0 H (0.0-0.3) mg/dL Unconjugated Bilirubin 2.3 H (0.0-1.1) mg/dL Delta Bilirubin 1.9 H (0.0-0.2) mg/dL Troponin I 0.229 H* 0.175 H* (0.000-0.034) ng/mL Albumin 3.1 L (3.5-5.0) g/dL Amylase 119 H (30-110) U/L Lipase 816 H (23-300) U/L Urine Protein (Negative) Urine Blood (Negative) Urine Bilirubin (Negative) Ur Leukocyte Esterase (Negative) Urine RBC (0-5) /hpf Urine WBC (0-5) /hpf Amorphous Sediment (None) /hpf Urine Bacteria (None) /hpf Urine Mucus (None) /hpf 02/22/24 02/22/24 Range/Units 08:59 08:59 RBC 3.09 L (4.30-5.90) m/uL Hgb 9.9 L (13.0-17.5) gm/dL Hct 30.2 L (39.0-53.0) % RDW 16.6 H (11.5-15.5) % Plt Count (150-450) k/uL PT (10.0-12.5) sec INR (<1.2) Sodium 131 L (137-145) mmol/L BUN 43 H (9-20) mg/dL Glucose 113 H (74-99) mg/dL Total Bilirubin 4.7 H (0.2-1.3) mg/dL Conjugated Bilirubin (0.0-0.3) mg/dL Unconjugated Bilirubin (0.0-1.1) mg/dL Delta Bilirubin (0.0-0.2) mg/dL Troponin I (0.000-0.034) ng/mL Albumin 2.7 L (3.5-5.0) g/dL Amylase (30-110) U/L Lipase (23-300) U/L Urine Protein (Negative) Urine Blood (Negative) Urine Bilirubin (Negative) Ur Leukocyte Esterase (Negative) Urine RBC (0-5) /hpf Urine WBC (0-5) /hpf Amorphous Sediment (None) /hpf Urine Bacteria (None) /hpf Urine Mucus (None) /hpf Comments: Portal vein ultrasound reports surgically absent gallbladder CBD within normal limits. No evidence for portal vein thrombus. Appropriate flow direction of the portal venous system. Assessment and Plan (1) Hyperbilirubinemia Narrative/Plan: 68-year-old male presenting with weakness and blurred vision being worked up for possible TIA/CVA. Noted to have elevated bilirubin with normal LFT and previous recent CT abdomen pelvis report noncontrast appearance of liver normal, appears to be left upper quadrant varices, possible splenorenal shunt. Enlarged spleen. Long-term history of daily alcohol use. 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 Recommend continuing alcohol abstinence. Treat symptomatically and follow-up in the office with gastroenterology. Will obtain hepatitis panel. Current Visit: Yes Status: Acute Code(s): E80.6 - OTHER DISORDERS OF BILIRUBIN METABOLISM SNOMED Code(s): 32739033 (2) Alcohol abuse Current Visit: Yes Status: Acute Code(s): F10.10 - ALCOHOL ABUSE, UNC OMPLICATED SNOMED Code(s): 86305848 (3) Jaundice Current Visit: Yes Status: Acute Code(s): R17 - UNSPECIFIED JAUNDICE SNOMED Code(s): 37400272 Plan: 1. Continue symptomatic and supportive care 2. Recommend heart healthy diet 3. Continue with alcohol abstinence 4. Repeat CMP 5. Hepatitis panel ordered 6. MRI abdomen ordered, evaluate liver and pancreas 6. Continue with workup from neurology for possible TIA/stroke 7. Patient will need to follow-up with gastroenterology on discharge Thank you for this consultation, we will continue to follow. Dr. Adis Steiner I agree with the dictator's note, documented as a scribe by Aspen Murphy.
--- NOTE | 2024-02-22 14:53 | P.PN ---
Subjective Progress Note Date: 02/22/24 Hospital Course: 68-year-old male with history of prior alcohol dependence presenting with right- sided blurry vision which lasted 5 minutes. He is also complaining of worsening weakness and new onset jaundice for the last 2 months. In the ED, temperature was 98.3, pulse 99, respiratory rate 16, blood pressure 149/72, saturating at 95% on room air. WBC 8.5, hemoglobin 10.8, platelet 94, INR 1.4, sodium 132, creatinine 0.75, total bili 5.2, conjugated bili 0.1, unconjugated 2.3, AST 59, ALT 18, ALP 113, troponin 0. due to 9, lipase 816, large blood and urinalysis. EKG independently interpreted, shows sinus tachycardia. CT head does not show any acute process. Patient admitted for worsening jaundice and possible TIA GI and neurology consulted. Subjective: Patient seen and examined at bedside. No acute events overnight. Denies any new complaints Pertinent positives and negatives as discussed above, a complete review of systems was performed and all other systems are negative. Vitals Signs Reviewed. General: nontoxic, no distress, appears at stated age, obese Derm: warm, dry, jaundice Head: atraumatic, normocephalic, symmetric Eyes: EOMI, no lid lag, scleral icterus, pupils equal round reactive to light ENT: Nose and ears atraumatic Neck: No thyromegaly, supple Mouth: no lip lesion, mucus membranes moist Cardiovascular: S1S2 reg, systolic murmur, trace peripheral edema Lungs: clear to auscultation bilateral, no rhonchi, no rales, no wheeze, no accessory muscle use Abdominal: soft, nontender to palpation, no guarding, no appreciable organomegaly Ext: no gross muscle atrophy, muscle strength muscle strength 5 out of 5 in all 4 extremities, no contractures Neuro: CN II-XII grossly intact Psych: Alert, oriented, appropriate affect Data Reviewed Today: Pertinent Labs: WBC 7.8, hemoglobin 9.9, platelet 93, sodium 131, creatinine 0.85, total bili 4.7, AST 54, ALT 17, ALP 108, ammonia less than 9 Imaging: Abdominal ultrasound does not show any portal vein thrombosis Assessment and Plan: Active: Liver failure, likely chronic Splenomegaly Normocytic anemia secondary to above Thrombocytopenia secondary to above Elevated INR, secondary to above Hyperbilirubinemia Mild hyponatremia Elevated lipase -Patient has a history of heavy alcohol use, possibly alcoholic cirrhosis -GI note reviewed, needs outpatient follow-up, abdominal MRI pending -Patient not on any medications at home -Acute hepatitis panel ordered by GI, pending -Recent CT abdomen pelvis from last month showed splenomegaly and left upper quadrant varices with splenorenal shunt, may be seen in setting of portal venous hypertension -IV Protonix 40 daily Brief episode of blurry vision -Possible TIA -CT head negative for any acute process -Neurology consulted, pending recommendations Weakness -PT ordered Elevated troponin, ACS ruled out -No active chest pain -Continue telemetry monitoring -Downtrending Hematuria -Outpatient urology follow-up -Patient is coagulopathic due to liver disease DVT ppx: SCDs Code status: Full code Anticipated discharge place: Pending clinical course Anticipated discharge time: pending clinical course Objective - Vital Signs Vital signs: Vital Signs Temp 97.8 F 02/22/24 14:07 Pulse 91 02/22/24 14:07 Resp 18 02/22/24 14:07 BP 121/55 02/22/24 14:07 Pulse Ox 98 02/22/24 14:07 FiO2 Intake & Output 02/21/24 02/22/24 02/22/24 18:59 06:59 18:59 Weight 104.326 kg - Labs CBC & Chem 7: 02/22/24 08:59 02/22/24 08:59 Labs: Abnormal Lab Results - Last 24 Hours (Table) 02/21/24 02/22/24 02/22/24 Range/Units 17:37 08:59 08:59 RBC 3.09 L (4.30-5.90) m/uL Hgb 9.9 L (13.0-17.5) gm/dL Hct 30.2 L (39.0-53.0) % RDW 16.6 H (11.5-15.5) % Plt Count 93 L (150-450) k/uL Sodium 131 L (137-145) mmol/L BUN 43 H (9-20) mg/dL Glucose 113 H (74-99) mg/dL Total Bilirubin 4.7 H (0.2-1.3) mg/dL Troponin I 0.175 H* (0.000-0.034) ng/mL Albumin 2.7 L (3.5-5.0) g/dL
[2024-02-22 15:43] LABS: Hepatitis A Antibody IgM Nonreactive (Nonreactive); Hepatitis B Core IgM Nonreactive (Nonreactive); Hepatitis B Surface Antigen Nonreactive (Nonreactive); Hepatitis C IgG Antibody Nonreactive (Nonreactive)
--- NOTE | 2024-02-22 18:27 | P.CNNES ---
History of Present Illness Consult date: 02/22/24 Requesting physician: Loyd Elliott Reason for Consult: blurry vision/TIA History of Present Illness: Patient is a 68-year-old right-handed male with history of some alcoholism, came to the hospital yesterday at 8:06 AM for transient episode of blurred vision. Patient's was also present, and they provided with a history. Patient apparently has not been feeling well, almost like a rundown for last 2 months. He has not been able to function well. His also noticed that he has been jaundiced for the last 2 months. On Thursday night, 2 nights ago, he noticed blurred vision with the right eye. Patient states that he closed the 1 in the other eye, and blurred vision was still present. He could not tell more detail, if hole of the vision was involved or partial. He went to sleep. Yesterday morning on Thursday, he woke up, and still had blurred vision therefore he asked his to bring him to the hospital. Patient denies any numbness or tingling, focal weakness, slurred speech, facial droop. Denies any diplopia or loss of vision. He denied any headache. He denied any chest pain, shortness of breath, nausea vomiting diarrhea, dizziness.. Vital signs on arrival blood pressure 149/72, pulse rate 99 temperature 98.3. Blood test shows normal WBC hemoglobin 10.8, MCV slightly borderline 96.8. Platelets are 94. INR 1.4. Sodium 132. Potassium 4.3. BUN 35 creatinine 0.75. Hepatic panel is normal, troponin is mildly elevated. Lipase 816. UA shows 7 WBC, trace leukocyte esterase. Hepatitis panel negative. CT head showed no acute abnormality. Previous resection left mastoid process. There is opacification here in the left middle ear cavity. Correlate for any symptoms that would suggest otomastoiditis. I personally reviewed CT head and agree with the findings. There is slight hypodensity in the left frontal pontine region. EKG showed sinus tachycardia with short AR interval. Portal vein ultrasound revealed no evidence for portal vein thrombus. Appropriate flow direction of the portal venous system. Patient states that yesterday while he was in the ER, his visual symptoms seems to have resolved. At present he has no visual complaints. Denies any headache. Patient does not take any medications at home. Patient has been relatively healthy, but he has not seen a doctor for years also. He denies hypertension or diabetes. He stopped smoking 20 years ago and was a light smoker before that. He also used to drink 3 beers per day, more on the weekend since 1975, quit drinking couple months ago. Once in a while he drinks hard liquor. Denies any use of marijuana or drug use. Patient denies any history of stroke. He does not take any antiplatelet medication. Review of Systems All pertinent positive and negative review of systems mentioned in the HPI. Past Medical History Past Medical History: Deep Vein Thrombosis (DVT), Hearing Disorder / Deafness, Liver Disease Additional Past Medical History / Comment(s): DVT right leg (2018), gout. History of Any Multi-Drug Resistant Organisms: None Reported Past Surgical History: Cholecystectomy, Joint Replacement Additional Past Surgical History / Comment(s): Bilateral hip replacement. Past Anesthesia/Blood Transfusion Reactions: No Reported Reaction Past Psychological History: No Psychological Hx Reported Smoking Status: Former smoker Past Alcohol Use History: Daily, Occasional Additional Past Alcohol Use History / Comment(s): stopped drinking 2 months ago Past Drug Use History: None Reported - Past Family History Mother Family Medical History: Chest Pain / Angina, Diabetes Mellitus Additional Family Medical History / Comment(s): Diabetes on mother's side of the family. Father Family Medical History: Diabetes Mellitus Additional Family Medical History / Comment(s): Diabetes on father's side of the family. Medications and Allergies Home Medications Medication Instructions Recorded Confirmed Type No Known Home Medications 02/21/24 02/21/24 History Allergies Allergy/AdvReac Type Severity Reaction Status Date / Time No Known Allergies Allergy Verified 02/21/24 13:04 Physical Examination - Vital Signs Vital Signs: Vital Signs Temp Pulse Pulse Resp BP BP Pulse Ox 02/22/24 15:38 97.6 F 94 18 138/65 97 02/22/24 15:02 97.9 F 92 16 136/63 98 02/22/24 14:07 97.8 F 91 18 121/55 98 02/22/24 12:05 97.6 F 91 18 134/53 97 02/22/24 11:15 91 20 130/62 97 02/22/24 10:00 97.9 F 92 18 125/60 100 02/22/24 08:40 93 16 149/68 100 02/22/24 07:30 98.4 F 94 18 134/60 100 02/22/24 06:51 98 20 156/66 98 02/22/24 04:49 98 19 138/80 98 02/21/24 22:51 86 18 129/59 98 Intake and Output 02/22/24 02/22/24 02/22/24 06:59 14:59 22:59 Intake Total 250 Balance 250 Intake: IV 10 Invasive Line 1 10 Oral 240 Other: Weight 104.326 kg Patient is an elderly male, in no acute distress. Patient has somewhat slow mentation, prolonged latency time to answer questions. Patient is alert awake oriented to time place and person. Speech and language functions are normal. Patient can name and repeat very well. No aphasia or dysarthria. Attention, concentration is slightly limited and fund of knowledge is also slightly limited. On cranial nerve examination, pupils are equal, round and reacting to light, visual francois are full on confrontation, with no neglect on double simultaneous stimulation. Extraocular muscles are intact with no nystagmus. Face is symmetric, tongue protrudes to the midline. Palatal elevation and sensation normal, hearing is moderately decreased and shoulder shrug normal, facial sensation normal. On muscle strength testing, there is no pronator drift and the strength is normal in arms and legs distally and proximally. Deep tendon reflexes are symmetric 1 at the biceps, 1 brachioradialis, 1+ at the knees, trace ankles and plantars downgoing. Sensory to touch is equal with no neglect on double simultaneous stimulation. Cerebellar function showed no ataxia for [id number] testing. No dysdiadochokinesia. No ataxia for [id number] testing on either side. Tone and bulk of muscles normal. Patient does have mild flapping tremor of the outstretched hands. Gait deferred.. On general examination, there is no carotid bruit or murmur, S1-S2 audible. Chest is clear on consultation. Abdomen is soft nontender. No organomegaly, bowel sounds present. Peripheral pulses are present. No peripheral edema. Results - Laboratory Findings CBC and BMP: 02/22/24 08:59 02/22/24 08:59 Abnormal Lab Findings: Abnormal Labs 02/21/24 02/21/24 02/21/24 09:07 09:40 09:40 RBC 3.36 L Hgb 10.8 L Hct 32.5 L RDW 16.4 H Plt Count 94 L PT 14.6 H INR 1.4 H Sodium BUN Glucose Total Bilirubin Conjugated Bilirubin Unconjugated Bilirubin Delta Bilirubin Troponin I Albumin Amylase Lipase Urine Protein Trace H Urine Blood Large H Urine Bilirubin 1+ H Ur Leukocyte Esterase Trace H Urine RBC 96 H Urine WBC 7 H Amorphous Sediment Moderate H Urine Bacteria Rare H Urine Mucus Rare H 02/21/24 02/21/24 02/21/24 09:40 09:40 17:37 RBC Hgb Hct RDW Plt Count PT INR Sodium 132 L BUN 35 H Glucose 135 H Total Bilirubin 5.2 H Conjugated Bilirubin 1.0 H Unconjugated Bilirubin 2.3 H Delta Bilirubin 1.9 H Troponin I 0.229 H* 0.175 H* Albumin 3.1 L Amylase 119 H Lipase 816 H Urine Protein Urine Blood Urine Bilirubin Ur Leukocyte Esterase Urine RBC Urine WBC Amorphous Sediment Urine Bacteria Urine Mucus 02/22/24 02/22/24 08:59 08:59 RBC 3.09 L Hgb 9.9 L Hct 30.2 L RDW 16.6 H Plt Count 93 L PT INR Sodium 131 L BUN 43 H Glucose 113 H Total Bilirubin 4.7 H Conjugated Bilirubin Unconjugated Bilirubin Delta Bilirubin Troponin I Albumin 2.7 L Amylase Lipase Urine Protein Urine Blood Urine Bilirubin Ur Leukocyte Esterase Urine RBC Urine WBC Amorphous Sediment Urine Bacteria Urine Mucus Assessment and Plan Assessment: * 68-year-old male, presented with subjective blurred vision in the right eye, although was involving binocular vision when he would close 1 or the other eye. Symptoms started the night prior to arrival to the ER, and resolved while he was in the ER. No associated focal neurological symptoms. Exact cause is uncertain. Patient denies headache. * Jaundice, with elevated lipase/amylase, being worked up * Alcoholism, quit 2 months ago. * Previous history of light tobacco use. * Elevated cardiac enzymes Plan: MRI of the brain without contrast, evaluate for acute CVA 2-D echo with bubble study to rule out PFO Carotid Doppler, rule out stenosis Fasting a.m. lipid panel Hemoglobin A1c Optimize control of blood pressure Patient's symptoms have resolved. Patient has thrombocytopenia, therefore we will hold off on antiplatelet medication for now, until above workup completed. For elevated cardiac enzymes, we will defer to IM. Neuro checks every shift. Telemetry monitoring rule out any arrhythmia Other medical management as per IM and other specialties on board. DVT prophylaxis: Heparin 5000 units subcu every 8 hours Neurology will continue to follow. Thank you for the consult.
--- NOTE | 2024-02-22 21:05 | US ---
EXAMINATION TYPE: US carotid duplex BILAT DATE OF EXAM: 02/22/2024 COMPARISON: NONE CLINICAL INDICATION: Male, 68 years old with history of Visual disturbance, r/o stroke/TIA; Double vi elva/ blurry vision per patient. TECHNIQUE: Carotid duplex ultrasound examination. Indirect Doppler criteria was utilized. FINDINGS: EXAM MEASUREMENTS: RIGHT: Peak Systolic Velocity (PSV) cm/sec ----- Right CCA: 116 ----- Right ICA: 136 ----- Right ECA: 137 ICA/CCA ratio: 1.2 RIGHT: End Diastole cm/sec ----- Right CCA: 0.0 ----- Right ICA: 10.9 ----- Right ECA: 0.0 LEFT: Peak Systolic Velocity (PSV) cm/sec ----- Left CCA: 117 ----- Left ICA: 110 ----- Left ECA: 136 ICA/CCA ratio: 0.9 LEFT: End Diastole cm/sec ----- Left CCA: 9.52 ----- Left ICA: 13.2 ----- Left ECA: 0.0 VERTEBRALS (direction of flow): Right Vertebral: Antegrade Left Vertebral: Antegrade Rhythm: Normal TEXTILE STYLIST NOTES: Plaque seen bilateral bifurcation. Slightly elevated velocity seen within the righ t prox ICA. IMPRESSION: Less than 50% stenosis of the bilateral carotid bifurcations. Criteria for Assigning % of Stenosis / Diameter reduction (Estimation based on the indirect measurements of the internal carotid artery velocities (ICA PSV). 1. Normal (no stenosis)=ICA PSV < 125 cm/s: ratio < 2.0: ICA EDV<40 cm/s. 2. Less than 50% stenosis=ICA PSV < 125 cm/s: ratio < 2.0: ICA EDV<40 cm/s. 3. 50 to 69% stenosis=ICA PSV of 125 to 230 cm/s: ration 2.0 ? 4.0: ICA EDV 40-100 cm/s. 4. Greater than 70% stenosis to near occlusion= ICA PSV > 230 cm/s: ratio > 4.0: ICA EDV > 100 cm/s. 5. Near occlusion= ICA PSV velocities may be low or undetectable: variable ratio and ICA EDV. 6. Total occlusion=unable to detect flow. [facility], , 02/22/2024 9:03 PM
[2024-02-23 07:28] LABS: ALT 15 U/L (4-49); AST 45 U/L (17-59); African American GFR (CKD) >90 (>60 ml/min/1.73 sqM); Albumin 2.5 g/dL (3.5-5.0); Alkaline Phosphatase 105 U/L (38-126); Anion Gap 7 mmol/L; Blood Urea Nitrogen 45 mg/dL (9-20); Calcium 8.4 mg/dL (8.4-10.2); Carbon Dioxide 19 mmol/L (22-30); Chloride 104 mmol/L (98-107); Glucose 108 mg/dL (74-99); Non-African American GFR(CKD) 80 (>60 ml/min/1.73 sqM); Potassium 4.3 mmol/L (3.5-5.1); Sodium 130 mmol/L (137-145); Total Bilirubin 4.5 mg/dL (0.2-1.3); Total Protein 6.6 g/dL (6.3-8.2)
[2024-02-23 07:33] LABS: Anisocytosis Slight; Basophils % (A) 0 %; Eosinophils # (A) 0.1 k/uL (0-0.7); Eosinophils % (A) 1 %; HCT 27.2 % (39.0-53.0); HGB 9.1 gm/dL (13.0-17.5); Lymphocytes # (A) 1.2 k/uL (1.0-4.8); Lymphocytes % (A) 17 %; MCH 32.7 pg (25.0-35.0); MCHC 33.5 g/dL (31.0-37.0); MCV 97.7 fL (80.0-100.0); Macrocytosis Slight; Mean Platelet Volume 8.6; Monocytes # (A) 0.6 k/uL (0-1.0); Monocytes % (A) 7 %; Neutrophils # (A) 5.3 k/uL (1.3-7.7); Neutrophils % (A) 71 %; RBC 2.78 m/uL (4.30-5.90); RDW 16.7 % (11.5-15.5); WBC 7.5 k/uL (3.8-10.6)
[2024-02-23 07:41] LABS: Platelet Count 87 k/uL (150-450)
[2024-02-23] MEDS ORDERED: ZINC OXIDE PASTE (Z-GUARD) 1 APPLIC TOPICAL PRN (10:01)
--- NOTE | 2024-02-23 11:13 | P.PN ---
Subjective Progress Note Date: 02/23/24 Hospital Course: 68-year-old male with history of prior alcohol dependence presenting with right- sided blurry vision which lasted 5 minutes. He is also complaining of worsening weakness and new onset jaundice for the last 2 months. In the ED, temperature was 98.3, pulse 99, respiratory rate 16, blood pressure 149/72, saturating at 95% on room air. WBC 8.5, hemoglobin 10.8, platelet 94, INR 1.4, sodium 132, creatinine 0.75, total bili 5.2, conjugated bili 0.1, unconjugated 2.3, AST 59, ALT 18, ALP 113, troponin 0. due to 9, lipase 816, large blood and urinalysis. EKG independently interpreted, shows sinus tachycardia. CT head does not show any acute process. Patient admitted for worsening jaundice and possible TIA, GI and neurology consulted. Abdominal ultrasound does not show any portal vein thrombosis. Carotid Doppler ultrasound shows less than 50% stenosis bilateral carotid bifurcations. Brain MRI, abdominal MRI and echo with bubble study are pending. Subjective: Patient seen and examined at bedside. No acute events overnight. Denies any new complaints. Pertinent positives and negatives as discussed above, a complete review of systems was performed and all other systems are negative. Vitals Signs Reviewed. General: nontoxic, no distress, appears at stated age, obese Derm: warm, dry, jaundice, stage II ulcer on left buttock Head: atraumatic, normocephalic, symmetric Eyes: EOMI, no lid lag, scleral icterus, pupils equal round reactive to light ENT: Nose and ears atraumatic Neck: No thyromegaly, supple Mouth: no lip lesion, mucus membranes moist Cardiovascular: S1S2 reg, systolic murmur, trace peripheral edema Lungs: clear to auscultation bilateral, no rhonchi, no rales, no wheeze, no accessory muscle use Abdominal: soft, nontender to palpation, no guarding, no appreciable organomegaly Ext: no gross muscle atrophy, muscle strength muscle strength 5 out of 5 in all 4 extremities, no contractures Neuro: CN II-XII grossly intact Psych: Alert, oriented, appropriate affect Data Reviewed Today: Pertinent Labs: WBC 7.5, hemoglobin 9.1, hematocrit 27.2, platelet count 87, sodium 130, potassium 4.3, bicarb 19, BUN 45, creatinine 0.98, glucose 108, calcium 8.4, total bili 4.5, albumin 2.5 Hepatitis serologies nonreactive Imaging: Abdominal ultrasound does not show any portal vein thrombosis Carotid Doppler ultrasound shows less than 50% stenosis bilateral carotid bifurcations Assessment and Plan: Active: #Liver failure, likely chronic #Splenomegaly #Normocytic anemia secondary to above #Thrombocytopenia secondary to above #Elevated INR, secondary to above #Hyperbilirubinemia #Hypoalbuminemia secondary above #Hypervolemic hyponatremia #Elevated lipase -Patient has a history of heavy alcohol use, possibly alcoholic cirrhosis -GI note reviewed, needs outpatient follow-up, abdominal MRI pending -Patient not on any medications at home -Acute hepatitis panel is negative -Recent CT abdomen pelvis from last month showed splenomegaly and left upper quadrant varices with splenorenal shunt, may be seen in setting of portal venous hypertension Hemoglobin dropped to 9.1 compared to 9.9 yesterday, most likely hemodilution; UGIB cannot be ruled out; monitor CBC -IV Protonix 40 daily Continue to monitor sodium level; discontinue IV normal saline and have patient on fluid restriction if hyponatremia worsens Continue to monitor BMP MELD-Na = 20 points, 19.6% estimated 3-month mortality #Brief episode of blurry vision -Possible TIA -CT head negative for any acute process -Neurology consulted, MRI brain pending, echo with bubble study to rule out PFO pending Stage II ulceration on left buttock, present on admission -Local wound care -Noninfected -Topical zinc oxide paste as needed #Weakness -PT ordered #Elevated troponin, ACS ruled out -No active chest pain -Continue telemetry monitoring -Downtrending #Hematuria -Outpatient urology follow-up -Patient is coagulopathic due to liver disease #Hyperglycemia Serum glucose 108 Monitor serum glucose level DVT ppx: SCDs Code status: Full code Anticipated discharge place: Pending clinical course Anticipated discharge time: pending clinical course I have seen and evaluated the patient today. Discussed with the resident and agree with the residents finding and plan as documented in the resident's note. Changes highlighted in blue font. Objective - Vital Signs Vital signs: Vital Signs Temp 97.7 F 02/23/24 08:00 Pulse 101 H 02/23/24 08:00 Resp 18 02/23/24 08:00 BP 138/65 02/23/24 08:00 Pulse Ox 95 02/23/24 08:00 FiO2 Intake & Output 02/22/24 02/23/24 02/23/24 18:59 06:59 18:59 Intake Total 250 10 180 Output Total 200 Balance 250 -190 180 Weight 104.326 kg 102.3 kg Intake: IV 10 10 Invasive Line 1 10 10 Oral 240 180 Output: Urine 200 Other: Voiding Method Urinal Urinal Urinal - Labs CBC & Chem 7: 02/23/24 06:31 02/23/24 06:31 Labs: Abnormal Lab Results - Last 24 Hours (Table) 02/23/24 02/23/24 Range/Units 06:31 06:31 RBC 2.78 L (4.30-5.90) m/uL Hgb 9.1 L (13.0-17.5) gm/dL Hct 27.2 L (39.0-53.0) % RDW 16.7 H (11.5-15.5) % Plt Count 87 L (150-450) k/uL Sodium 130 L (137-145) mmol/L Carbon Dioxide 19 L (22-30) mmol/L BUN 45 H (9-20) mg/dL Glucose 108 H (74-99) mg/dL Total Bilirubin 4.5 H (0.2-1.3) mg/dL Albumin 2.5 L (3.5-5.0) g/dL
--- NOTE | 2024-02-23 11:26 | P.PN ---
Subjective Progress Note Date: 02/23/24 Principal diagnosis: Jaundice This is a pleasant 68-year-old male who presented to the emergency department with complaints of weakness, decreased appetite with nausea over the last 3 weeks duration and no developed blurry vision. Past medical history includes deep vein thrombosis, hematuria following with urology and alcohol abuse. States that he has been drinking alcohol regularly since being in [place]. Admits to drinking 2-3 beers a day. States he quit drinking about 2 weeks ago. No previous known history of liver disease. Denies any known history of hepatitis. He had elevated bilirubin on admission with mildly elevated amylase and lipase. He had a CT of the abdomen pelvis and January 2024 that reported splenomegaly, left upper quadrant varices and splenorenal shunting correlate for portal hypertension. He had a portal vein ultrasound during this admission with no noted portal thrombosis. 02/23/2024 Patient is seen and examined today as a follow-up. He has no new complaints. Neurology is working him up for possible stroke. He denies any abdominal pain, nausea or vomiting. States he ate a little bit yesterday. He is scheduled for MRI of the abdomen. Today's labs WBC 7.5 hemoglobin 9.1 platelet count 87,000 sodium 130 potassium 4.3 BUN 45 creatinine 0.9 total bilirubin 4.5 AST 45 ALT 15 alkaline phosphatase 105 hepatitis panel nonreactive Objective - Vital Signs Vital signs: Vital Signs Temp 97.7 F 02/23/24 08:00 Pulse 101 H 02/23/24 08:00 Resp 18 02/23/24 08:00 BP 138/65 02/23/24 08:00 Pulse Ox 95 02/23/24 08:00 FiO2 Intake & Output 02/22/24 02/23/24 02/23/24 18:59 06:59 18:59 Intake Total 250 10 180 Output Total 200 Balance 250 -190 180 Weight 104.326 kg 102.3 kg Intake: IV 10 10 Invasive Line 1 10 10 Oral 240 180 Output: Urine 200 Other: Voiding Method Urinal Urinal - Exam General appearance: The patient is alert, oriented, appears in no acute distress. HET: Head is normocephalic and atraumatic. Conjunctiva pink. Sclera icteric. Neck: Supple without lymphadenopathy. Abdomen: Soft, nontender, nondistended with bowel sounds. No guarding or rigidity. Extremities: Normal skin color and turgor. Lower extremity swelling. Skin: No rashes, jaundice. Neurological: No focal deficits. Alert and oriented. - Labs CBC & Chem 7: 02/23/24 06:31 02/23/24 06:31 Labs: Abnormal Lab Results - Last 24 Hours (Table) 02/22/24 02/22/24 02/23/24 Range/Units 08:59 08:59 06:31 RBC (4.30-5.90) m/uL Hgb (13.0-17.5) gm/dL Hct (39.0-53.0) % RDW (11.5-15.5) % Plt Count 93 L (150-450) k/uL Sodium 131 L 130 L (137-145) mmol/L Carbon Dioxide 19 L (22-30) mmol/L BUN 43 H 45 H (9-20) mg/dL Glucose 113 H 108 H (74-99) mg/dL Total Bilirubin 4.7 H 4.5 H (0.2-1.3) mg/dL Albumin 2.7 L 2.5 L (3.5-5.0) g/dL 02/23/24 Range/Units 06:31 RBC 2.78 L (4.30-5.90) m/uL Hgb 9.1 L (13.0-17.5) gm/dL Hct 27.2 L (39.0-53.0) % RDW 16.7 H (11.5-15.5) % Plt Count 87 L (150-450) k/uL Sodium (137-145) mmol/L Carbon Dioxide (22-30) mmol/L BUN (9-20) mg/dL Glucose (74-99) mg/dL Total Bilirubin (0.2-1.3) mg/dL Albumin (3.5-5.0) g/dL Assessment and Plan (1) Hyperbilirubinemia Narrative/Plan: 68-year-old male presenting with weakness and blurred vision being worked up for possible TIA/CVA. Noted to have elevated bilirubin with normal LFT and previous recent CT abdomen pelvis report noncontrast appearance of liver normal, appears to be left upper quadrant varices, possible splenorenal shunt. Enlarged spleen. Long-term history of daily alcohol use. 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 Recommend continuing alcohol abstinence. Treat symptomatically and follow-up in the office with gastroenterology. Will obtain hepatitis panel. Current Visit: Yes Status: Acute Code(s): E80.6 - OTHER DISORDERS OF BILIRUBIN METABOLISM SNOMED Code(s): 14273756 (2) Alcohol abuse Current Visit: Yes Status: Acute Code(s): F10.10 - ALCOHOL ABUSE, UNCOMPLICATED SNOMED Code(s): 03097908 (3) Jaundice Current Visit: Yes Status: Acute Code(s): R17 - UNSPECIFIED JAUNDICE SN OMED Code(s): 74765588 Plan: 1. Continue symptomatic and supportive care 2. Recommend heart healthy diet 3. Continue with alcohol abstinence 4. MRI abdomen ordered, evaluate liver and pancreas 5. Ensure ordered 6. Continue with workup from neurology for possible TIA/stroke 7. Patient will need to follow-up with gastroenterology on discharge 8. Further recommendations forthcoming based on clinical course Thank you for this consultation, we will continue to follow. Dr. Adis Steiner I agree with the dictator's note, documented as a scribe by Aspen Murphy.
--- NOTE | 2024-02-23 11:57 | P.CONS ---
History of Present Illness - Reason for Consult Consult date: 02/23/24 wound care - History of Present Illness This is a 68-year-old patient being seen by the wound care center on [address] for a stage II pressure ulcer to the left buttocks. Patient states that the ulceration has been there since October. He has been using treatments alone cream to the site with minimal change to the ulceration. Ulceration measures approximately 1 x 0.3 x 0.2 cm with fat layer exposure. The wound edges are attached to the wound base there is no tunneling or undermining noted. Granulation seen throughout the wound base with minimal slough and nonviable tissue present. Patient's past medical history significant for DVT hearing disorder liver disease and a former smoker denies diabetes. Review Of Systems: Constitutional: No fever, no chills, no night sweats. No weight change. No weakness, fatigue or lethargy. No daytime sleepiness. Integumentary:reports wounds, no lesions. No rash or pruritus. No unusual bruising. No change in hair or nails. Physical exam: General Appearance: Alert, cooperative, no distress, appears stated age. Skin: See HPI all other Skin color, texture, tugor normal, no rashes or lesions. Neurologic: Alert oriented x3 Assessment: 1. Stage II pressure ulcer left buttocks Plan: 1. Left buttocks: Apply honey gel and bordered foam. Change Thursday. Avoid sitting for prolonged periods of time. Utilize air-filled cushion while sitting. Turn patient every 2 hours. Thank you for the consultation any questions please contact the wound care center DNP note has been reviewed and discussed with Dr. Dc and the impression and plan of care has been directed as dictated. Past Medical History Past Medical History: Deep Vein Thrombosis (DVT), Hearing Disorder / Deafness, Liver Disease Additional Past Medical History / Comment(s): DVT right leg (2018), gout. History of Any Multi-Drug Resistant Organisms: None Reported Past Surgical History: Cholecystectomy, Joint Replacement Additional Past Surgical History / Comment(s): Bilateral hip replacement. Past Anesthesia/Blood Transfusion Reactions: No Reported Reaction Past Psychological History: No Psychological Hx Reported Smoking Status: Former smoker Past Alcohol Use History: Daily, Occasional Additional Past Alcohol Use History / Comment(s): stopped drinking 2 months ago Past Drug Use History: None Reported - Past Family History Mother Family Medical History: Chest Pain / Angina, Diabetes Mellitus Additional Family Medical History / Comment(s): Diabetes on mother's side of the family. Father Family Medical History: Diabetes Mellitus Additional Family Medical History / Comment(s): Diabetes on father's side of the family. Medications and Allergies Home Medications Medication Instructions Recorded Confirmed Type No Known Home Medications 02/21/24 02/21/24 History Allergies Allergy/AdvReac Type Severity Reaction Status Date / Time No Known Allergies Allergy Verified 02/21/24 13:04 Physical Exam Vitals: Vital Signs Temp Pulse Pulse Resp BP BP Pulse Ox 02/23/24 11:35 98.2 F 94 20 122/55 95 02/23/24 08:00 97.7 F 101 H 18 138/65 95 02/23/24 04:00 97.9 F 102 H 16 134/61 95 02/22/24 23:26 98.6 F 100 18 147/70 97 02/22/24 20:00 98.2 F 92 18 168/73 98 02/22/24 15:38 97.6 F 94 18 138/65 97 02/22/24 15:02 97.9 F 92 16 136/63 98 02/22/24 14:07 97.8 F 91 18 121/55 98 02/22/24 12:05 97.6 F 91 18 134/53 97 Intake and Output 02/22/24 02/23/24 02/23/24 22:59 06:59 14:59 Intake Total 260 180 Output Total 200 Balance 260 -200 180 Intake: IV 20 Invasive Line 1 20 Oral 240 180 Output: Urine 200 Other: Voiding Method Urinal Urinal Urinal Weight 104.326 kg 102.3 kg Results CBC & Chem 7: 02/23/24 06:31 02/23/24 06:31 Labs: Abnormal Lab Results - Last 24 Hours (Table) 02/23/24 02/23/24 02/23/24 Range/Units 06:31 06:31 06:31 RBC 2.78 L (4.30-5.90) m/uL Hgb 9.1 L (13.0-17.5) gm/dL Hct 27.2 L (39.0-53.0) % RDW 16.7 H (11.5-15.5) % Plt Count 87 L (150-450) k/uL Sodium 130 L (137-145) mmol/L Carbon Dioxide 19 L (22-30) mmol/L BUN 45 H (9-20) mg/dL Glucose 108 H (74-99) mg/dL Hemoglobin A1c 6.8 H (<=6.0) % Total Bilirubin 4.5 H (0.2-1.3) mg/dL Albumin 2.5 L (3.5-5.0) g/dL Assessment and Plan (1) Pressure ulcer of left buttock, stage 2 Current Visit: Yes Status: Acute Code(s): L89.322 - PRESSURE ULCER OF LEFT BUTTOCK, STAGE 2 SNOMED Code(s): 30982302607039
--- NOTE | 2024-02-23 13:04 | MR ---
EXAMINATION TYPE: MR brain wo con DATE OF EXAM: 02/23/2024 12:52 PM CLINICAL INDICATION: Male, 68 years old with history of Blurred vision, r/o stroke/TIA; Blurred visio n. COMPARISON: CT 02/21/2024. TECHNIQUE: Multi planar, multi sequence imaging was performed through the brain including: T1, T2, In version recovery, Diffusion weighted imaging, and gradient echo imaging. No gadolinium was given. FINDINGS: Scattered foci of restricted diffusion including the right posterior frontal lobe the left frontal lobe left posterior frontal lobe the right occipital region the left parietal region. The gra y-white junctions, ventricular system, basal cisterns appear unremarkable. Scattered foci of high T 2 signal intensity are seen within the periventricular white matter. Midline structures show no abnor mality. The susceptibility weighted images do not reveal any evidence for micro-hemorrhage. The bone marrow signal is post surgical changes to the left temporal bone with high T2 signal in the cavity. Paranasal sinuses and mastoid air cells: No significant paranasal sinus disease. Visualized orbits: Intact. IMPRESSION: 1. Few scattered Elver foci of restricted diffusion compatible with microinfarcts correlate for em bolic phenomenon. 2. Surgical changes to left temporal bone with high T2 fluid. 3. Nonspecific white matter changes throughout the brain. [facility], , 02/23/2024 1:02 PM
--- NOTE | 2024-02-23 13:48 | MR ---
EXAMINATION TYPE: MR abdomen wo/w con DATE OF EXAM: 02/23/2024 1:26 PM CLINICAL INDICATION: Male, 68 years old with history of, Jaundice COMPARISON: CT scan abdomen from 01/29/2024, 02/19/2024. TECHNIQUE: Multiplanar multi-sequence imaging was performed without contrast. Post contrast imaging was performed. Post IV contrast subtraction images were also submitted for review. IV Contrast: 10 cc Gadavist FINDINGS: LOWER CHEST: Small bilateral pleural effusions. The heart is mildly enlarged for a period ABDOMEN Liver: Motion limited exam. No evidence for steatosis. Subtle nodular contour to liver both caudate l obe hypertrophy. No observation that needs HCC criteria. Gallbladder and Bile ducts: No evidence for ductal dilation, or biliary stricture or evidence of chol edocholithiasis. The gallbladder is surgically absent Pancreas: No ductal dilation. No evidence for solid mass. Spleen: Enlarged for size measuring up to 16.7 cm. Adrenal glands: Unremarkable. Kidneys: No evidence for obstructive uropathy. No suspicious renal masses. Subcentimeter left renal c yst. Stomach and Bowel: No evidence for bowel wall thickening or evidence for obstruction. Retroperitoneum/Peritoneum: No evidence of pneumoperitoneum or free fluid. Vasculature: No aortic aneurysm. Musculoskeletal: The osseous structures appear intact. Lymph Nodes: No gross evidence for lymphadenopathy. Abdominal wall: Unremarkable. IMPRESSION: 1. No evidence for suspicious liver mass. Nodularity to the liver suggesting cirrhosis with portal h ypertension with splenomegaly. 2. No evidence for dilated intrahepatic or intrahepatic biliary system. No choledocholithiasis. 3. Surgically absent gallbladder. 4. Cardiomegaly with bilateral pleural effusions, correlate for congestive heart failure. [facility], , 02/23/2024 1:46 PM
[2024-02-23 15:46] LABS: Chol/HDL Ratio 8.85 Ratio; LDL Cholesterol,Calculated 57.7 mg/dL (0.0-131.0)
[2024-02-23] MEDS: ASPIRIN 81 MG PO STA (16:50)
--- NOTE | 2024-02-23 17:40 | CA ---
Transthoracic Echo Report Name: Jurgen Melendez Age: 68 Gender: M : 1955 Exam Date: 02/23/2024 08:06 Exam Location: [facility] Ht (in): 70 Wt (lb): 230 Ordering Physician: Niurka Latham MD Attending/Referring Phys: Creative Lead Ghazala Lozada RDCS Procedure CPT: Indications: Visual disturbance, r/o stroke/TIA Cardiac Hx: Technical Quality: Fair Contrast 1: Agitated Saline Total Dose (mL): 9 Contrast 2: Total Dose (mL): MEASUREMENTS (Male / Female) Normal Values 2D ECHO LV Diastolic Diameter PLAX 5.3 cm 4.2 - 5.9 / 3.9 - 5.3 cm LV Systolic Diameter PLAX 3.3 cm IVS Diastolic Thickness 1.2 cm 0.6 - 1.0 / 0.6 - 0.9 cm LVPW Diastolic Thickness 1.3 cm 0.6 - 1.0 / 0.6 - 0.9 cm LV Relative Wall Thickness 0.5 RV Internal Dim ED PLAX 3.0 cm LVOT Diameter 2.8 cm LA Systolic Diameter LX 4.1 cm 3.0 - 4.0 / 2.7 - 3.8 cm LA Volume 93.9 cm??? 18 - 58 / 22 - 52 cm??? LA Volume Index 40.7 cm???/m??? 16 - 28 cm???/m??? M-MODE Aortic Root Diameter MM 3.8 cm AV Cusp Separation MM 1.5 cm DOPPLER AV Peak Velocity 275.3 cm/s AV Peak Gradient 30.3 mmHg AV Mean Velocity 214.5 cm/s AV Mean Gradient 19.6 mmHg AV Velocity Time Integral 59.3 cm AI Peak Velocity 317.1 cm/s AI Peak Gradient 40.2 mmHg AI Pressure Half Time 511.5 ms LVOT Peak Velocity 176.6 cm/s LVOT Peak Gradient 12.5 mmHg LVOT Velocity Time Integral 31.6 cm LVOT Stroke Volume 195.6 cm??? LVOT Stroke Volume Index 88.3 ml/m??? LVOT Cardiac Index 8492.6 cm???/min???m??? AV Area Cont Eq vti 3.3 cm??? AV Area Cont Eq pk 4.0 cm??? MV Area PHT 4.1 cm??? Mitral E Point Velocity 164.0 cm/s Mitral A Point Velocity 121.7 cm/s Mitral E to A Ratio 1.3 MV Deceleration Time 186.7 ms TR Peak Velocity 336.1 cm/s TR Peak Gradient 45.2 mmHg Right Ventricular Systolic Press 47.7 mmHg FINDINGS Left Ventricle Left ventricular ejection fraction is estimated at 60-65 %. Left ventricular cavity size normal. Mildly increased septal wall thickness. Normal left ventricular wall motion. Right Ventricle Normal right ventricular size. Moderate pulmonary hypertension. Right Atrium Normal right atrial size. Negative agitated saline bubble study for right to left shunt. Left Atrium Mildly increased left atrial diameter. Severely increased left atrial volume. Mildly increased left atrial area. Mitral Valve Mitral valve thickened. Mild mitral annular calcification. Trace mitral regurgitation. Aortic Valve Aortic valve sclerosis. [id number] aortic stenosis with a peak gradient of 30 mmHg and a mean gradient of 20 mmHg. Tricuspid Valve Structurally normal tricuspid valve. [id number] tricuspid regurgitation. Pulmonic Valve Structurally normal pulmonic valve. No pulmonic regurgitation. Pericardium No pericardial or pleural effusion. Aorta Mild aortic dilatation at the level of the sinuses of valsalva 38 mm CONCLUSIONS Diagnosis: CVA/TIA Preserved LV systolic function Calcific aortic stenosis with a peak gradient of 30 mmHg No intracardiac masses Negative bubble study Previewed by: Dr. Efra Bautista MD (Electronically Signed) Final Date: 23 February 2024 17:38
[2024-02-24] MEDS: PANTOPRAZOLE 40 MG TABLET PO SCH (06:20)
[2024-02-24 07:15] LABS: Anisocytosis Slight; Basophils % (A) 0 %; Eosinophils # (A) 0.1 k/uL (0-0.7); Eosinophils % (A) 1 %; Hypochromasia Slight; Lymphocytes # (A) 0.9 k/uL (1.0-4.8); Lymphocytes % (A) 12 %; MCH 31.8 pg (25.0-35.0); MCHC 32.4 g/dL (31.0-37.0); MCV 98.2 fL (80.0-100.0); Macrocytosis Slight; Mean Platelet Volume 8.3; Monocytes # (A) 0.3 k/uL (0-1.0); Monocytes % (A) 3 %; Neutrophils # (A) 6.1 k/uL (1.3-7.7); Neutrophils % (A) 80 %; RBC 3.15 m/uL (4.30-5.90); RDW 16.8 % (11.5-15.5); WBC 7.6 k/uL (3.8-10.6)
[2024-02-24 07:22] LABS: Platelet Count 84 k/uL (150-450)
[2024-02-24 08:01] LABS: African American GFR (CKD) 83 (>60 ml/min/1.73 sqM); Anion Gap 6 mmol/L; Blood Urea Nitrogen 46 mg/dL (9-20); Calcium 8.6 mg/dL (8.4-10.2); Carbon Dioxide 19 mmol/L (22-30); Chloride 104 mmol/L (98-107); Glucose 126 mg/dL (74-99); Magnesium 1.9 mg/dL (1.6-2.3); Non-African American GFR(CKD) 72 (>60 ml/min/1.73 sqM); Potassium 4.7 mmol/L (3.5-5.1); Sodium 129 mmol/L (137-145)
[2024-02-24] MEDS: ASPIRIN 81 MG PO SCH (08:45)
[2024-02-24] MEDS ORDERED: DEXTROSE 50% SYRINGE 50 ML IVP PRN ×2 (09:46)
--- NOTE | 2024-02-24 10:05 | P.PN ---
Subjective Progress Note Date: 02/23/24 Patient was seen for a follow-up. Patient is laying comfortably the bed. Patient's was also present. He is very sleepy today. She mentions that he "snoofed most of the day". Denies any new neurosymptoms. Objective - Vital Signs Vital signs: Vital Signs Temp 98.1 F 02/23/24 16:00 Pulse 65 02/23/24 16:00 Resp 14 02/23/24 16:00 BP 121/56 02/23/24 16:00 Pulse Ox 100 02/23/24 16:00 FiO2 Intake & Output 02/22/24 02/23/24 02/23/24 18:59 06:59 18:59 Intake Total 250 10 360 Output Total 200 200 Balance 250 -190 160 Weight 104.326 kg 102.3 kg 102.3 kg Intake: IV 10 10 Invasive Line 1 10 10 Oral 240 360 Output: Urine 200 200 Other: Voiding Method Urinal Urinal Urinal - Exam Patient slightly groggy, but otherwise unchanged. - Labs CBC & Chem 7: 02/24/24 06:53 02/24/24 06:53 Labs: Abnormal Lab Results - Last 24 Hours (Table) 02/23/24 02/23/24 02/23/24 Range/Units 06:31 06:31 06:31 RBC 2.78 L (4.30-5.90) m/uL Hgb 9.1 L (13.0-17.5) gm/dL Hct 27.2 L (39.0-53.0) % RDW 16.7 H (11.5-15.5) % Plt Count 87 L (150-450) k/uL Sodium 130 L (137-145) mmol/L Carbon Dioxide 19 L (22-30) mmol/L BUN 45 H (9-20) mg/dL Glucose 108 H (74-99) mg/dL Hemoglobin A1c 6.8 H (<=6.0) % Total Bilirubin 4.5 H (0.2-1.3) mg/dL Albumin 2.5 L (3.5-5.0) g/dL Triglycerides 155.00 H (0.00-149.00) mg/dL HDL Cholesterol 11.30 L (40.00-60.00) mg/dL Assessment and Plan Assessment: * Acute ischemic stroke, small, multifocal, suggestive of possible embolic phenomenon. Patient had presented with subjective blurred vision in the right eye, although was involving binocular vision when he would close 1 or the other eye. No associated focal neurological symptoms. MRI of the brain revealed multifocal areas of ischemia, but slightly more prominent involving the left parieto-occipital junction. * Jaundice, with elevated lipase/amylase, being worked up * Alcoholism, quit 2 months ago. * Previous history of light tobacco use. * Elevated cardiac enzymes Plan: * MRI of the brain without contrast, revealed few scattered foci of restricted diffusion compatible with microinfarcts. Correlate for embolic phenomenon. Surgical changes to the left temporal bone with high T2 fluid. Nonspecific white matter changes. I personally reviewed MRI of the brain, agree with the findings. On my review, I do not see any surgical changes. Will review with the radiologist. * 2-D echo revealed LVEF 60 to 65%. Mildly increased septal wall thickness. Negative agitated saline bubble study for [id number] shunt. Severely increased left atrial volume. Mild aortic dilation. No valvular abnormali ties. * Recommend 30-day event monitoring rule out paroxysmal atrial fibrillation * Carotid Doppler, revealed less than 50% stenosis of bilateral carotid bifurcations. Antegrade flow in both vertebral arteries. * Fasting a.m. lipid panel with cholesterol 100, LDL 57, HDL 11 and triglycerides 155. * Hemoglobin A1c 6.8 * Optimize control of blood pressure * Patient's symptoms have resolved. We will start aspirin with loading dose of 324 mg x 1 dose followed by aspirin 81 mg daily. Avoid DAPT because of thrombocytopenia. * For elevated cardiac enzymes, we will defer to IM. * Neuro checks every shift. * Telemetry monitoring rule out any arrhythmia * Other medical management as per IM and other specialties on board. * DVT prophylaxis: SCDs, due to thrombocytopenia.
--- NOTE | 2024-02-24 11:46 | P.PN ---
Subjective Progress Note Date: 02/24/24 Hospital Course: 68-year-old male with history of prior alcohol dependence presenting with right- sided blurry vision which lasted 5 minutes. He is also complaining of worsening weakness and new onset jaundice for the last 2 months. In the ED, temperature was 98.3, pulse 99, respiratory rate 16, blood pressure 149/72, saturating at 95% on room air. WBC 8.5, hemoglobin 10.8, platelet 94, INR 1.4, sodium 132, creatinine 0.75, total bili 5.2, conjugated bili 0.1, unconjugated 2.3, AST 59, ALT 18, ALP 113, troponin 0. due to 9, lipase 816, large blood and urinalysis. EKG independently interpreted, shows sinus tachycardia. CT head does not show any acute process. Patient admitted for worsening jaundice and possible TIA. GI and neurology consulted. Abdominal ultrasound does not show any portal vein thrombosis. Carotid Doppler ultrasound shows less than 50% stenosis bilateral carotids. MRI of the brain shows multifocal infarcts likely embolic in nature. MRI of the abdomen shows liver cirrhosis and portal hypertension with splenomegaly. Echocardiogram shows ejection fraction 60 to 65%. Severely increased left atrial volume. Trace MR. Mild to moderate . Mild to moderate TR. Negative bubble study. Patient continue be on cardiac telemetry. Patient reports slight improvement in his symptoms today. Symptomatic management will be continued with diuretics. Subjective: Patient seen and examined at bedside. No acute events overnight. Denies any new complaints. Pertinent positives and negatives as discussed above, a complete review of systems was performed and all other systems are negative. Vitals Signs Reviewed. General: nontoxic, no distress, appears at stated age, obese Derm: warm, dry, jaundice, stage II ulcer on left buttock Head: atraumatic, normocephalic, symmetric Eyes: EOMI, no lid lag, scleral icterus, pupils equal round reactive to light ENT: Nose and ears atraumatic Neck: No thyromegaly, supple Mouth: no lip lesion, mucus membranes moist Cardiovascular: S1S2 reg, 3/6 systolic murmur, 2+ pitting edema RLE, 1+ pitting edema LLE Lungs: Decreased breath sounds bilaterally, no rhonchi, no rales, no wheeze, no accessory muscle use Abdominal: soft, nontender to palpation, no guarding, no appreciable organomegaly Ext: no gross muscle atrophy, muscle strength muscle strength 5 out of 5 in all 4 extremities, no contractures Neuro: CN II-XII grossly intact Psych: Alert, oriented, appropriate affect Data Reviewed Today: Pertinent Labs: WBC 7.6, hemoglobin 10.0, hematocrit 31.0, platelet count 84, sodium 129, potassium 4.7, bicarb 19, BUN 46, creatinine 1.07, glucose 126, calcium 8.6, magnesium 1.9 Imaging: No new imaging Assessment and Plan: Active: # Decompensated cirrhosis secondary to history of alcoholism #Splenomegaly #Normocytic anemia secondary to above #Thrombocytopenia secondary to above #Elevated INR, secondary to above #Hyperbilirubinemia #Hypoalbuminemia secondary above #Hypervolemic hyponatremia #Elevated lipase -Patient has a history of heavy alcohol use, possibly alcoholic cirrhosis -GI note reviewed, outpatient follow-up, abdominal MRI shows liver cirrhosis, portal hypertension and splenomegaly, increase protein intake -Patient not on any medications at home -Acute hepatitis panel is negative -Recent CT abdomen pelvis from last month showed splenomegaly and left upper quadrant varices with splenorenal shunt, may be seen in setting of portal venous hypertension -IV Protonix 40 daily Continue to monitor sodium level Continue to monitor CMP and CBC MELD-Na = 20 points, 19.6% estimated 3-month mortality Patient started on Lasix 40 mg p.o. daily and Aldactone 100 mg p.o. daily #Brief episode of blurry vision #Multifocal stroke, likely embolic MRI of the brain shows multifocal infarcts likely embolic in nature. Echo shows ejection fraction 60 to 65% Bubble study negative -Neurology consulted Continue on aspirin 81 mg p.o. daily Patient will likely need cardiac event monitoring for 30 days to rule out paroxysmal A-fib #Stage II ulceration on left buttock, present on admission -Local wound care -Noninfected -Topical zinc oxide paste as needed #Weakness -PT ordered #Elevated troponin, ACS ruled out -No active chest pain -Continue telemetry monitoring -Downtrending #Hematuria -Outpatient urology follow-up -Patient is coagulopathic due to liver disease #Hyperglycemia Serum glucose 126 Monitor serum glucose level DVT ppx: SCDs Code status: Full code Anticipated discharge place: Pending clinical course Anticipated discharge time: pending clinical course I have seen and evaluated the patient today. Discussed with the resident and agree with the residents finding and plan as documented in the resident's note. Changes highlighted in blue font. Objective - Vital Signs Vital signs: Vital Signs Temp 98.0 F 02/24/24 11:21 Pulse 87 02/24/24 11:21 Resp 18 02/24/24 11:21 BP 112/69 02/24/24 11:21 Pulse Ox 98 02/24/24 11:21 FiO2 Intake & Output 02/23/24 02/24/24 02/24/24 18:59 06:59 18:59 Intake Total 360 120 Output Total 200 0 Balance 160 0 120 Weight 102.3 kg Intake: Oral 360 120 Output: Urine 200 0 Other: Voiding Method Urinal Urinal Urinal - Labs CBC & Chem 7: 02/24/24 06:53 02/24/24 06:53 Labs: Abnormal Lab Results - Last 24 Hours (Table) 02/23/24 02/24/24 02/24/24 Range/Units 06:31 06:53 06:53 RBC 3.15 L (4.30-5.90) m/uL Hgb 10.0 L (13.0-17.5) gm/dL Hct 31.0 L (39.0-53.0) % RDW 16.8 H (11.5-15.5) % Plt Count 84 L (150-450) k/uL Lymphocytes # 0.9 L (1.0-4.8) k/uL Sodium 129 L (137-145) mmol/L Carbon Dioxide 19 L (22-30) mmol/L BUN 46 H (9-20) mg/dL Glucose 126 H (74-99) mg/dL Triglycerides 155.00 H (0.00-149.00) mg/dL HDL Cholesterol 11.30 L (40.00-60.00) mg/dL
[2024-02-24] MEDS: FUROSEMIDE 40 MG TAB PO SCH (11:50)
[2024-02-24] MEDS: SPIRONOLACTONE 25 MG TAB PO SCH (11:50)
[2024-02-24 11:51] LABS: Glucose,Whole Blood 207 mg/dL (70-110)
[2024-02-24] MEDS: INSULIN ASPART (NovoLOG) 100 UNIT/ML VIAL SQ SCH (11:51)
--- NOTE | 2024-02-24 13:41 | P.PN ---
Subjective Progress Note Date: 02/24/24 Principal diagnosis: Jaundice This is a pleasant 68-year-old male who presented to the emergency department with complaints of weakness, decreased appetite with nausea over the last 3 weeks duration and no developed blurry vision. Past medical history includes deep vein thrombosis, hematuria following with urology and alcohol abuse. States that he has been drinking alcohol regularly since being in [place]. Admits to drinking 2-3 beers a day. States he quit drinking about 2 weeks ago. No previous known history of liver disease. Denies any known history of hepatitis. He had elevated bilirubin on admission with mildly elevated amylase and lipase. He had a CT of the abdomen pelvis and January 2024 that reported splenomegaly, left upper quadrant varices and splenorenal shunting correlate for portal hypertension. He had a portal vein ultrasound during this admission with no noted portal thrombosis. 02/23/2024 Patient is seen and examined today as a follow-up. He has no new complaints. Neurology is working him up for possible stroke. He denies any abdominal pain, nausea or vomiting. States he ate a little bit yesterday. He is scheduled for MRI of the abdomen. Today's labs WBC 7.5 hemoglobin 9.1 platelet count 87,000 sodium 130 potassium 4.3 BUN 45 creatinine 0.9 total bilirubin 4.5 AST 45 ALT 15 alkaline phosphatase 105 hepatitis panel nonreactive 02/24/2024 Patient seen and examined today as a follow-up. He is sitting up in the bed. He underwent MRI of the abdomen yesterday which had no hepatic lesions, with a cirrhotic liver. States he did eat a little bit more yesterday and is feeling a little bit stronger. Denies any abdominal pain, nausea or vomiting. Objective - Vital Signs Vital signs: Vital Signs Temp 98.0 F 02/24/24 08:00 Pulse 107 H 02/24/24 08:00 Resp 18 02/24/24 08:00 BP 131/61 02/24/24 08:00 Pulse Ox 93 L 02/24/24 08:00 FiO2 Intake & Output 02/23/24 02/24/24 02/24/24 18:59 06:59 18:59 Intake Total 360 Output Total 200 0 Balance 160 0 Weight 102.3 kg Intake: Oral 360 Output: Urine 200 0 Other: Voiding Method Urinal Urinal - Exam General appearance: The patient is alert, oriented, appears in no acute distress. HET: Head is normocephalic and atraumatic. Conjunctiva pink. Sclera icteric. Neck: Supple without lymphadenopathy. Abdomen: Soft, nontender, nondistended with bowel sounds. No guarding or rigidity. Extremities: Normal skin color and turgor. Lower extremity swelling. Skin: No rashes, jaundice. Neurological: No focal deficits. Alert and oriented. - Labs CBC & Chem 7: 02/24/24 06:53 02/24/24 06:53 Labs: Abnormal Lab Results - Last 24 Hours (Table) 02/23/24 02/23/24 02/24/24 Range/Units 06:31 06:31 06:53 RBC 3.15 L (4.30-5.90) m/uL Hgb 10.0 L (13.0-17.5) gm/dL Hct 31.0 L (39.0-53.0) % RDW 16.8 H (11.5-15.5) % Plt Count 84 L (150-450) k/uL Lymphocytes # 0.9 L (1.0-4.8) k/uL Sodium (137-145) mmol/L Carbon Dioxide (22-30) mmol/L BUN (9-20) mg/dL Glucose (74-99) mg/dL Hemoglobin A1c 6.8 H (<=6.0) % Triglycerides 155.00 H (0.00-149.00) mg/dL HDL Cholesterol 11.30 L (40.00-60.00) mg/dL 02/24/24 Range/Units 06:53 RBC (4.30-5.90) m/uL Hgb (13.0-17.5) gm/dL Hct (39.0-53.0) % RDW (11.5-15.5) % Plt Count (150-450) k/uL Lymphocytes # (1.0-4.8) k/uL Sodium 129 L (137-145) mmol/L Carbon Dioxide 19 L (22-30) mmol/L BUN 46 H (9-20) mg/dL Glucose 126 H (74-99) mg/dL Hemoglobin A1c (<=6.0) % Triglycerides (0.00-149.00) mg/dL HDL Cholesterol (40.00-60.00) mg/dL Assessment and Plan (1) Hyperbilirubinemia Narrative/Plan: 68-year-old male presenting with weakness and blurred vision being worked up for possible TIA/CVA. Noted to have elevated bilirubin with normal LFT and previous recent CT abdomen pelvis report noncontrast appearance of liver normal, appears to be left upper quadrant varices, possible splenorenal shunt. Enlarged spleen. Long-term history of daily alcohol use. 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 Recommend continuing alcohol abstinence. Treat symptomatically and follow-up in the office with gastroenterology. Hyperbilirubinemia likely all secondary to alcohol liver cirrhosis. MRI shows no concerns with liver lesions However does show cirrhotic liver. No abnormal findings of the pancreas. Recommend continued alcohol abstinence and outpatient follow-up with gastroenterology. Current Visit: Yes Status: Acute Code(s): E80.6 - OTHER DISORDERS OF BILIRUBIN METABOLISM SNOMED Code(s): 82221098 (2) Alcohol abuse Current Visit: Yes Status: Acute Code(s): F10.10 - ALCOHOL ABUSE, UNCOMPLICATED SNOMED Code(s): 10669086 (3) Jaundice Current Visit: Yes Status: Acute Code(s): R17 - UNSPECIFIED JAUNDICE SNOMED Code(s): 42950460 (4) Cirrhosis Current Visit: Yes Status: Acute Code(s): K74.60 - UNSPECIFIED CIRRHOSIS OF LIVER SNOMED Code(s): 44642422 Plan: 1. Continue symptomatic and supportive care 2. Encourage increased protein, Ensure ordered 3. MRI ordered and reviewed 4. Continue with alcohol abstinence 5. Recommend low-sodium diet 6. No further workup indicated from gastroenterology, patient will need to follow-up in 2 to 3 weeks Thank you for this consultation, we will sign off at this time. Dr. Adis Steiner I agree with the dictator's note, documented as a scribe by Aspen Murphy.
[2024-02-24 16:40] LABS: Glucose,Whole Blood 193 mg/dL (70-110)
[2024-02-24 20:03] LABS: Glucose,Whole Blood 183 mg/dL (70-110)
[2024-02-25 06:12] LABS: Glucose,Whole Blood 138 mg/dL (70-110)
[2024-02-25 07:31] LABS: ALT 17 U/L (4-49); AST 46 U/L (17-59); African American GFR (CKD) 53 (>60 ml/min/1.73 sqM); Albumin 2.9 g/dL (3.5-5.0); Alkaline Phosphatase 117 U/L (38-126); Anion Gap 8 mmol/L; Blood Urea Nitrogen 55 mg/dL (9-20); Calcium 8.7 mg/dL (8.4-10.2); Carbon Dioxide 21 mmol/L (22-30); Chloride 103 mmol/L (98-107); Glucose 138 mg/dL (74-99); Non-African American GFR(CKD) 46 (>60 ml/min/1.73 sqM); Potassium 4.7 mmol/L (3.5-5.1); Sodium 132 mmol/L (137-145); Total Bilirubin 4.8 mg/dL (0.2-1.3); Total Protein 7.5 g/dL (6.3-8.2)
[2024-02-25 08:22] LABS: Anisocytosis Slight; Basophils % (A) 0 %; Eosinophils # (A) 0.1 k/uL (0-0.7); Eosinophils % (A) 1 %; HGB 10.3 gm/dL (13.0-17.5); Lymphocytes # (A) 1.4 k/uL (1.0-4.8); Lymphocytes % (A) 17 %; MCH 32.5 pg (25.0-35.0); MCHC 33.3 g/dL (31.0-37.0); MCV 97.5 fL (80.0-100.0); Macrocytosis Slight; Mean Platelet Volume 9.3; Monocytes # (A) 0.4 k/uL (0-1.0); Monocytes % (A) 5 %; Neutrophils # (A) 5.9 k/uL (1.3-7.7); Neutrophils % (A) 72 %; RBC 3.18 m/uL (4.30-5.90); RDW 17.5 % (11.5-15.5); WBC 8.2 k/uL (3.8-10.6)
[2024-02-25 08:30] LABS: Platelet Count 74 k/uL (150-450)
[2024-02-25 12:21] LABS: Glucose,Whole Blood 204 mg/dL (70-110)
[2024-02-25 12:33] LABS: Appearance,Urine Cloudy (Clear); Bilirubin,Urine 1+ (Negative); Blood,Urine Large (Negative); Color,Urine Dark Brown; Glucose,Urine (UA) Negative (Negative); Hyaline Casts,Urine 47 /lpf (0-2); Ketones,Urine Negative (Negative); Leukocyte Esterase,Urine Trace (Negative); Mucus,Urine Rare /hpf; Nitrite,Urine Negative (Negative); Protein,Urine Trace (Negative); RBC,Urine 74 /hpf (0-5); Specific Gravity,Urine 1.016 (1.001-1.035); Squamous Epithelial Cell,Urine 1 /hpf (0-4); WBC,Urine 8 /hpf (0-5)
--- NOTE | 2024-02-25 12:47 | US ---
EXAMINATION TYPE: US renals and bladder DATE OF EXAM: 02/25/2024 COMPARISON: NONE CLINICAL INDICATION: Male, 68 years old with history of YI; YI EXAM MEASUREMENTS: Right Kidney: 12.7 x 5.8 x 5.8 cm Left Kidney: 12.6 x 6.8 x 5.8 cm Right Kidney: no evidence of hydronephrosis Left Kidney: no evidence of hydronephrosis Bladder: not fully distended Bilateral Jets seen: no There is no evidence for hydronephrosis at this point in time. No nephrolithiasis is seen. No kristian s are identified. The urinary bladder is anechoic. Bilateral ureteral jets are seen. IMPRESSION: No evidence for obstructive uropathy or renal mass. [facility], , 02/25/2024 12:45 PM
--- NOTE | 2024-02-25 13:38 | P.PN ---
Subjective Progress Note Date: 02/25/24 Hospital Course: 68-year-old male with history of prior alcohol dependence presenting with right- sided blurry vision which lasted 5 minutes. He is also complaining of worsening weakness and new onset jaundice for the last 2 months. In the ED, temperature was 98.3, pulse 99, respiratory rate 16, blood pressure 149/72, saturating at 95% on room air. WBC 8.5, hemoglobin 10.8, platelet 94, INR 1.4, sodium 132, creatinine 0.75, total bili 5.2, conjugated bili 0.1, unconjugated 2.3, AST 59, ALT 18, ALP 113, troponin 0. due to 9, lipase 816, large blood and urinalysis. EKG independently interpreted, shows sinus tachycardia. CT head does not show any acute process. Patient admitted for worsening jaundice and possible TIA. GI and neurology consulted. Abdominal ultrasound does not show any portal vein thrombosis. Carotid Doppler ultrasound shows less than 50% stenosis bilateral carotids. MRI of the brain shows multifocal infarcts likely embolic in nature. MRI of the abdomen shows liver cirrhosis and portal hypertension with splenomegaly. Echocardiogram shows ejection fraction 60 to 65%. Severely increased left atrial volume. Trace MR. Mild to moderate . Mild to moderate TR. Negative bubble study. Patient continue be on cardiac telemetry. Patient reports slight improvement in his symptoms today. Symptomatic management will be continued with diuretics. Subjective: Patient seen and examined at bedside. No acute events overnight. Denies any new complaints. Apetite is poor. Pertinent positives and negatives as discussed above, a complete review of systems was performed and all other systems are negative. Vitals Signs Reviewed. General: nontoxic, no distress, appears at stated age, obese Derm: warm, dry, jaundice, stage II ulcer on left buttock Head: atraumatic, normocephalic, symmetric Eyes: EOMI, no lid lag, scleral icterus, pupils equal round reactive to light ENT: Nose and ears atraumatic Neck: No thyromegaly, supple Mouth: no lip lesion, mucus membranes moist Cardiovascular: S1S2 reg, 3/6 systolic murmur, 2+ pitting edema RLE, 1+ pitting edema LLE Lungs: Decreased breath sounds bilaterally, no rhonchi, no rales, no wheeze, no accessory muscle use Abdominal: soft, nontender to palpation, no guarding, no appreciable organomegaly Ext: no gross muscle atrophy, muscle strength muscle strength 5 out of 5 in all 4 extremities, no contractures Neuro: CN II-XII grossly intact Psych: Alert, oriented, appropriate affect Data Reviewed Today: Pertinent Labs: WBC 8.2, hemoglobin 10.3, hematocrit 31.1, platelet count 74, sodium 132, potassium 4.7, bicarb 21, BUN 55, creatinine 1.53, glucose 138 Imaging: No new imaging Assessment and Plan: Active: # Decompensated cirrhosis secondary to history of alcoholism #Splenomegaly #Normocytic anemia secondary to above #Thrombocytopenia secondary to above #Elevated INR, secondary to above #Hyperbilirubinemia #Hypoalbuminemia secondary above #Hypervolemic hyponatremia #Elevated lipase -Patient has a history of heavy alcohol use, possibly alcoholic cirrhosis -GI note reviewed, outpatient follow-up, abdominal MRI shows liver cirrhosis, portal hypertension and splenomegaly, increase protein intake -Patient not on any medications at home -Acute hepatitis panel is negative -Recent CT abdomen pelvis from last month showed splenomegaly and left upper quadrant varices with splenorenal shunt, may be seen in setting of portal venous hypertension -IV Protonix 40 daily Continue to monitor sodium level Continue to monitor CMP and CBC MELD-Na = 20 points, 19.6% estimated 3-month mortality #Acute Kidney Injury, likely secondary to ATN EFGFR 46, creatinine 1.53 Ordered Urine Na, Creatinine, urea, osm; results pending Urinalysis shows proteinura, hematuria, hyaline casts Renal and bladder US shows no obstructive uropathy d/c spironolactine and lasix IV NS 125cc/hr for a total of 1.5L monitor CMP in a.m. #Brief episode of blurry vision #Multifocal stroke, likely embolic MRI of the brain shows multifocal infarcts likely embolic in nature. Echo shows ejection fraction 60 to 65% Bubble study negative -Neurology consulted Continue on aspirin 81 mg p.o. daily Patient will likely need cardiac event monitoring for 30 days to rule out paroxysmal A-fib -Speech Therapy consult to r/o dysphagia, silent aspiration and for cognitive evaluation #Stage II ulceration on left buttock, present on admission -Local wound care -Noninfected -Topical zinc oxide paste as needed #Weakness -PT ordered #Elevated troponin, ACS ruled out -No active chest pain -Continue telemetry monitoring -Downtrending #Hematuria -Outpatient urology follow-up -Patient is coagulopathic due to liver disease #Hyperglycemia secondary to Type II DM Serum glucose 126 - A1c is 6.8% - Monitor serum glucose level - low dose SSI, diabetes education on discharge DVT ppx: SCDs Code status: Full code Anticipated discharge place: Pending clinical course Anticipated discharge time: pending clinical course I saw and evaluated the patient during the paez and critical portions of this encounter, and discussed the case in detail with the resident author of this note, I agree with the Assessment and Plan, and my changes, if any, are highlighted in blue. Objective - Vital Signs Vital signs: Vital Signs Temp 97.9 F 02/25/24 07:50 Pulse 104 H 02/25/24 07:50 Resp 20 02/25/24 07:50 BP 119/65 02/25/24 07:50 Pulse Ox 94 L 02/25/24 07:50 FiO2 Intake & Output 02/24/24 02/25/24 02/25/24 18:59 06:59 18:59 Intake Total 120 Output Total 300 0 Balance -180 0 Weight 101.7 kg Intake: Oral 120 Output: Urine 300 0 Other: Voiding Method Urinal Urinal # Voids 1 - Labs CBC & Chem 7: 02/25/24 06:52 02/25/24 06:52 Labs: Abnormal Lab Results - Last 24 Hours (Table) 02/24/24 02/24/24 02/24/24 Range/Units 11:49 16:35 20:01 RBC (4.30-5.90) m/uL Hgb (13.0-17.5) gm/dL Hct (39.0-53.0) % RDW (11.5-15.5) % Plt Count (150-450) k/uL Sodium (137-145) mmol/L Carbon Dioxide (22-30) mmol/L BUN (9-20) mg/dL Creatinine (0.66-1.25) mg/dL Glucose (74-99) mg/dL POC Glucose (mg/dL) 207 H 193 H 183 H (70-110) mg/dL Total Bilirubin (0.2-1.3) mg/dL Albumin (3.5-5.0) g/dL 02/25/24 02/25/24 02/25/24 Range/Units 06:10 06:52 06:52 RBC 3.18 L (4.30-5.90) m/uL Hgb 10.3 L (13.0-17.5) gm/dL Hct 31.0 L (39.0-53.0) % RDW 17.5 H (11.5-15.5) % Plt Count 74 L (150-450) k/uL Sodium 132 L (137-145) mmol/L Carbon Dioxide 21 L (22-30) mmol/L BUN 55 H (9-20) mg/dL Creatinine 1.53 H (0.66-1.25) mg/dL Glucose 138 H (74-99) mg/dL POC Glucose (mg/dL) 138 H (70-110) mg/dL Total Bilirubin 4.8 H (0.2-1.3) mg/dL Albumin 2.9 L (3.5-5.0) g/dL
--- NOTE | 2024-02-25 14:30 | P.PN ---
Subjective Progress Note Date: 02/24/24 Patient was seen for a follow-up. Patient is laying comfortably the recliner. Patient's was also present. Patient is very much alert and awake today. Patient denies any new focal symptoms. Patient states that he stopped drinking alcohol 2 months ago. Objective - Vital Signs Vital signs: Vital Signs Temp 98.0 F 02/24/24 16:00 Pulse 99 02/24/24 16:00 Resp 18 02/24/24 16:00 BP 122/68 02/24/24 16:00 Pulse Ox 95 02/24/24 16:00 FiO2 Intake & Output 02/23/24 02/24/24 02/24/24 18:59 06:59 18:59 Intake Total 360 120 Output Total 200 0 300 Balance 160 0 -180 Weight 102.3 kg Intake: Oral 360 120 Output: Urine 200 0 300 Other: Voiding Method Urinal Urinal Urinal - Exam Patient is alert and awake. Speech and language functions are normal. Pupils are equal, round and reacting, visual francois are full with no neglect. Face is symmetric and tongue protrudes to the midline. On muscle strength testing there is no pronator drift and the strength is normal in arms distally and proximally. No ataxia for [id number] testing. Sensory to touch is equal. - Labs CBC & Chem 7: 02/25/24 06:52 02/25/24 06:52 Labs: Abnormal Lab Results - Last 24 Hours (Table) 02/24/24 02/24/24 02/24/24 Range/Units 06:53 06:53 11:49 RBC 3.15 L (4.30-5.90) m/uL Hgb 10.0 L (13.0-17.5) gm/dL Hct 31.0 L (39.0-53.0) % RDW 16.8 H (11.5-15.5) % Plt Count 84 L (150-450) k/uL Lymphocytes # 0.9 L (1.0-4.8) k/uL Sodium 129 L (137-145) mmol/L Carbon Dioxide 19 L (22-30) mmol/L BUN 46 H (9-20) mg/dL Glucose 126 H (74-99) mg/dL POC Glucose (mg/dL) 207 H (70-110) mg/dL 09/18/24 Range/Units 16:35 RBC (4.30-5.90) m/uL Hgb (13.0-17.5) gm/dL Hct (39.0-53.0) % RDW (11.5-15.5) % Plt Count (150-450) k/uL Lymphocytes # (1.0-4.8) k/uL Sodium (137-145) mmol/L Carbon Dioxide (22-30) mmol/L BUN (9-20) mg/dL Glucose (74-99) mg/dL POC Glucose (mg/dL) 193 H (70-110) mg/dL Assessment and Plan Assessment: * Acute ischemic stroke, small, multifocal, suggestive of possible embolic phenomenon. Patient had presented with subjective blurred vision in the right eye, although was involving binocular vision when he would close 1 or the other eye. No associated focal neurological symptoms. MRI of the brain revealed multifocal areas of ischemia, but slightly more prominent involving the left parieto-occipital junction. * Jaundice, with elevated lipase/amylase, being worked up * Alcoholism, quit 2 months ago. * Previous history of light tobacco use. * New onset diabetes with A1c 6.8 * Elevated cardiac enzymes Plan: * MRI of the brain without contrast, revealed few scattered foci of restricted diffusion compatible with microinfarcts. Correlate for embolic phenomenon. Surgical changes to the left temporal bone with high T2 fluid. Nonspecific white matter changes. I personally reviewed MRI of the brain, agree with the findings. On my review, I do not see any surgical changes. Will review with the radiologist. * 2-D echo revealed LVEF 60 to 65%. Mildly increased septal wall thickness. Negative agitated saline bubble study for [id number] shunt. Severely increased left atrial volume. Mild aortic dilation. No valvular abnormalities. * Recommend 30-day event monitoring rule out paroxysmal atrial fibrillation * Carotid Doppler, revealed less than 50% stenosis of bilateral carotid bifurcations. Antegrade flow in both vertebral arteries. * Fasting a.m. lipid panel with cholesterol 100, LDL 57, HDL 11 and triglycerides 155. Lipids are well-controlled. Patient high risk for statins because of liver disease * Hemoglobin A1c 6.8. Patient was not known to be diabetic. PCP to address diabetes * Blood pressure is well-controlled. * Patient's symptoms have resolved. We will start aspirin with loading dose of 324 mg x 1 dose followed by aspirin 81 mg daily. Avoid DAPT because of thrombocytopenia. * For elevated cardiac enzymes, we will defer to IM. * Neuro checks every shift. * PT, OT speech therapist * Telemetry monitoring rule out any arrhythmia * Other medical management as per IM and other specialties on board. * DVT prophylaxis: SCDs, due to thrombocytopenia. * Neurologically clear with above recommendations
[2024-02-25] MEDS: SODIUM CHLORIDE 0.9% 1,000 ML IV SCH (15:08)
[2024-02-25 17:00] LABS: Glucose,Whole Blood 146 mg/dL (70-110)
[2024-02-25 20:16] LABS: Glucose,Whole Blood 233 mg/dL (70-110)
[2024-02-26 06:19] LABS: Glucose,Whole Blood 159 mg/dL (70-110)
[2024-02-26 08:19] LABS: Anisocytosis Slight; Basophils % (A) 0 %; Eosinophils # (A) 0.1 k/uL (0-0.7); Eosinophils % (A) 1 %; HCT 31.8 % (39.0-53.0); HGB 10.1 gm/dL (13.0-17.5); Hypochromasia Moderate; Lymphocytes # (A) 1.2 k/uL (1.0-4.8); Lymphocytes % (A) 12 %; MCH 31.9 pg (25.0-35.0); MCHC 31.9 g/dL (31.0-37.0); Macrocytosis Slight; Mean Platelet Volume 8.7; Monocytes # (A) 0.5 k/uL (0-1.0); Monocytes % (A) 5 %; Neutrophils # (A) 7.9 k/uL (1.3-7.7); Neutrophils % (A) 78 %; RBC 3.18 m/uL (4.30-5.90)
--- NOTE | 2024-02-26 08:21 | P.PN ---
Subjective Progress Note Date: 02/25/24 Patient was seen for a follow-up. Patient is laying comfortably the recliner. Patient's was also present. Patient is very much alert and awake today. Patient denies any new focal symptoms. Patient states that he stopped drinking alcohol 2 months ago. No new concerns. Objective - Vital Signs Vital signs: Vital Signs Temp 98.1 F 02/25/24 15:12 Pulse 100 02/25/24 15:12 Resp 18 02/25/24 15:12 BP 118/56 02/25/24 15:12 Pulse Ox 95 02/25/24 15:12 FiO2 Intake & Output 02/24/24 02/25/24 02/25/24 18:59 06:59 18:59 Intake Total 120 0 Output Total 300 0 Balance -180 0 0 Weight 101.7 kg Intake: Oral 120 0 Output: Urine 300 0 Other: Voiding Method Urinal Urinal Urinal # Voids 1 0 # Bowel Movements 0 - Exam Patient is alert and awake. Speech and language functions are normal. Pupils are equal, round and reacting, visual francois are full with no neglect. Face is symmetric and tongue protrudes to the midline. On muscle strength testing there is no pronator drift and the strength is normal in arms distally and proximally. No ataxia for [id number]-lu-[id number] testing. Sensory to touch is equal. Patient has mild asterixis. - Labs CBC & Chem 7: 02/25/24 06:52 02/25/24 06:52 Labs: Abnormal Lab Results - Last 24 Hours (Table) 02/24/24 02/25/24 02/25/24 Range/Units 20:01 06:10 06:52 RBC 3.18 L (4.30-5.90) m/uL Hgb 10.3 L (13.0-17.5) gm/dL Hct 31.0 L (39.0-53.0) % RDW 17.5 H (11.5-15.5) % Plt Count 74 L (150-450) k/uL Sodium (137-145) mmol/L Carbon Dioxide (22-30) mmol/L BUN (9-20) mg/dL Creatinine (0.66-1.25) mg/dL Glucose (74-99) mg/dL POC Glucose (mg/dL) 183 H 138 H (70-110) mg/dL Total Bilirubin (0.2-1.3) mg/dL Albumin (3.5-5.0) g/dL Urine Protein (Negative) Urine Blood (Negative) Urine Bilirubin (Negative) Ur Leukocyte Esterase (Negative) Urine RBC (0-5) /hpf Urine WBC (0-5) /hpf Hyaline Casts (0-2) /lpf Urine Mucus (None) /hpf 02/25/24 02/25/24 02/25/24 Range/Units 06:52 12:17 12:19 RBC (4.30-5.90) m/uL Hgb (13.0-17.5) gm/dL Hct (39.0-53.0) % RDW (11.5-15.5) % Plt Count (150-450) k/uL Sodium 132 L (137-145) mmol/L Carbon Dioxide 21 L (22-30) mmol/L BUN 55 H (9-20) mg/dL Creatinine 1.53 H (0.66-1.25) mg/dL Glucose 138 H (74-99) mg/dL POC Glucose (mg/dL) 204 H (70-110) mg/dL Total Bilirubin 4.8 H (0.2-1.3) mg/dL Albumin 2.9 L (3.5-5.0) g/dL Urine Protein Trace H (Negative) Urine Blood Large H (Negative) Urine Bilirubin 1+ H (Negative) Ur Leukocyte Esterase Trace H (Negative) Urine RBC 74 H (0-5) /hpf Urine WBC 8 H (0-5) /hpf Hyaline Casts 47 H (0-2) /lpf Urine Mucus Rare H (None) /hpf 02/25/24 Range/Units 16:55 RBC (4.30-5.90) m/uL Hgb (13.0-17.5) gm/dL Hct (39.0-53.0) % RDW (11.5-15.5) % Plt Count (150-450) k/uL Sodium (137-145) mmol/L Carbon Dioxide (22-30) mmol/L BUN (9-20) mg/dL Creatinine (0.66-1.25) mg/dL Glucose (74-99) mg/dL POC Glucose (mg/dL) 146 H (70-110) mg/dL Total Bilirubin (0.2-1.3) mg/dL Albumin (3.5-5.0) g/dL Urine Protein (Negative) Urine Blood (Negative) Urine Bilirubin (Negative) Ur Leukocyte Esterase (Negative) Urine RBC (0-5) /hpf Urine WBC (0-5) /hpf Hyaline Casts (0-2) /lpf Urine Mucus (None) /hpf Assessment and Plan Assessment: * Acute ischemic stroke, small, multifocal, suggestive of possible embolic phenomenon. Patient had presented with subjective blurred vision in the right eye, although was involving binocular vision when he would close 1 or the other eye. No associated focal neurological symptoms. MRI of the brain revealed multifocal areas of ischemia, but slightly more prominent involving the left parieto-occipital junction. * Jaundice, with elevated lipase/amylase * Hepatic cirrhosis, likely from alcoholism * Thrombocytopenia, likely due to cirrhosis * Acutely decreased renal function, being worked up. * Alcoholism, quit 2 months ago. * Previous history of light tobacco use. * New onset diabetes with A1c 6.8 * Elevated cardiac enzymes Plan: * MRI of the brain without contrast, revealed few scattered foci of restricted diffusion compatible with microinfarcts. Correlate for embolic phenomenon. Surgical changes to the left temporal bone with high T2 fluid. Nonspecific white matter changes. I personally reviewed MRI of the brain, agree with the findings. On my review, I do not see any surgical changes. Will review with the radiologist. * 2-D echo revealed LVEF 60 to 65%. Mildly increased septal wall thickness. Negative agitated saline bubble study for [id number] shunt. Severely increased left atrial volume. Mild aortic dilation. No valvular abnormalities. * Recommend 30-day event monitoring rule out paroxysmal atrial fibrillation * Carotid Doppler, revealed less than 50% stenosis of bilateral carotid bifurcations. Antegrade flow in both vertebral arteries. * Fasting a.m. lipid panel with cholesterol 100, LDL 57, HDL 11 and triglycerides 155. Lipids are well-controlled. Patient high risk for statins because of liver disease * Hemoglobin A1c 6.8. Patient was not known to be diabetic. PCP to address diabetes * Blood pressure is well-controlled. * Patient's renal functions has slightly deteriorated, patient being hydrated. IM following. * Patient's symptoms have resolved. We will start aspirin with loading dose of 324 mg x 1 dose followed by aspirin 81 mg daily. Avoid DAPT because of thrombocytopenia. * For elevated cardiac enzymes, we will defer to IM. * Neuro checks every shift. * PT, OT speech therapist * Telemetry monitoring rule out any arrhythmia * Other medical management as per IM and other specialties on board. * DVT prophylaxis: SCDs, due to thrombocytopenia. * Neurologically clear for discharge to rehab facility. We will sign off.
[2024-02-26 08:41] LABS: African American GFR (CKD) 51 (>60 ml/min/1.73 sqM); Anion Gap 13 mmol/L; Blood Urea Nitrogen 61 mg/dL (9-20); Calcium 8.6 mg/dL (8.4-10.2); Carbon Dioxide 13 mmol/L (22-30); Chloride 106 mmol/L (98-107); Glucose 146 mg/dL (74-99); Non-African American GFR(CKD) 44 (>60 ml/min/1.73 sqM); Platelet Count 89 k/uL (150-450); Potassium 4.8 mmol/L (3.5-5.1); Sodium 132 mmol/L (137-145)
[2024-02-26] MEDS: SODIUM CHLORIDE 0.9% 1,000 ML IV SCH (10:59)
--- NOTE | 2024-02-26 11:10 | XR ---
EXAMINATION TYPE: XR chest 1V portable DATE OF EXAM: 02/26/2024 10:51 AM CLINICAL INDICATION: Male, 68 years old with history of shortness of breath; PHH COMPARISON: Chest radiographs from 02/21/2024 TECHNIQUE: XR chest 1V portable Frontal view of the chest. FINDINGS: Lungs/Pleura: No evidence of focal consolidation or pneumothorax. Blunting of the costophrenic angles is present. Pulmonary vascularity: Pulmonary vascular congestion. Heart/mediastinum: Cardiomediastinal silhouette is enlarged. Musculoskeletal: No acute osseous pathology. IMPRESSION: Cardiomegaly, pulmonary vascular congestion and bilateral pleural effusions. Correlate with BNP for c ongestive heart failure. [facility], , 02/26/2024 11:07 AM
[2024-02-26 12:01] LABS: Glucose,Whole Blood 187 mg/dL (70-110)
--- NOTE | 2024-02-26 12:04 | P.NPCON ---
History of Present Illness - History of Present Illness 68-year-old male with a past medical alcohol abuse, DVT, hematuria (following with urology) presents with complaints of weakness, decreased appetite with nausea, and right-sided blurry vision that lasted 5 minutes. Nephrology consulted for acute kidney injury and ATN. Serum creatinine on admission was 0.85, and today is 1.58. Patient received PO Lasix 40mg daily after which there was a spike in creatinine on 02/24. Patient's baseline creatinine from February 2024 was 0.76 -1.4. No nephrotoxic medications on chart review. Echo on (02/22) shows left ventricular systolic function and an EF of 60-65%. Vitals have been stable since admission. No hypotension noted. Patient was noted to have hyperbilirubinemia and does have a history of significant alcohol abuse. Splenomegaly noted on MRI of the Abdomen UA showed dark brown cloudy urine with trace protein, hyaline casts of 47, and 8 squamous epithelial cells, RBC 96 Started on NS 125 cc/h on 02/25/2024 when creatinine increased to 1.5. Urine output not accurately charted.. Past Medical History Past Medical History: Deep Vein Thrombosis (DVT), Hearing Disorder / Deafness, Liver Disease Additional Past Medical History / Comment(s): DVT right leg (2018), gout. History of Any Multi-Drug Resistant Organisms: None Reported Past Surgical History: Cholecystectomy, Joint Replacement Additional Past Surgical History / Comment(s): Bilateral hip replacement. Past Anesthesia/Blood Transfusion Reactions: No Reported Reaction Past Psychological History: No Psychological Hx Reported Smoking Status: Former smoker Past Alcohol Use History: Daily, Occasional Additional Past Alcohol Use History / Comment(s): stopped drinking 2 months ago Past Drug Use History: None Reported - Past Family History Mother Family Medical History: Chest Pain / Angina, Diabetes Mellitus Additional Family Medical History / Comment(s): Diabetes on mother's side of the family. Father Family Medical History: Diabetes Mellitus Additional Family Medical History / Comment(s): Diabetes on father's side of the family. Medications and Allergies Home Medications Medication Instructions Recorded Confirmed Type No Known Home Medications 02/21/24 02/21/24 History Allergies Allergy/AdvReac Type Severity Reaction Status Date / Time No Known Allergies Allergy Verified 02/21/24 13:04 Physical Exam Vitals: Vital Signs Temp Pulse Resp BP Pulse Ox 02/26/24 07:54 111 H 02/26/24 07:26 98.1 F 111 H 18 111/50 95 02/26/24 03:57 97.8 F 114 H 18 156/71 92 L 02/25/24 23:37 97.9 F 98 19 127/68 94 L 02/25/24 20:00 98.1 F 79 19 138/67 99 02/25/24 15:12 98.1 F 100 18 118/56 95 02/25/24 13:18 103 H 02/25/24 11:40 103 H 20 117/64 93 L Intake and Output 02/25/24 02/26/24 02/26/24 22:59 06:59 14:59 Intake Total 472 Balance 472 Intake: Oral 472 Other: Voiding Method Urinal Urinal Toilet Urinal # Voids 1 Weight 104.2 kg 104.2 kg General: nontoxic, no distress, appears at stated age, obese Derm: warm, dry, jaundice, stage II ulcer on left buttock Head: atraumatic, normocephalic, symmetric Eyes: EOMI, no lid lag, scleral icterus, pupils equal round reactive to light ENT: Nose and ears atraumatic Neck: No thyromegaly, supple Mouth: no lip lesion, mucus membranes moist Cardiovascular: S1S2 reg, 3/6 systolic murmur, 2+ pitting edema RLE, 1+ pitting edema LLE Lungs: Decreased breath sounds bilaterally, no rhonchi, no rales, no wheeze, no accessory muscle use Abdominal: soft, nontender to palpation, no guarding, no appreciable organomega ly Ext: no gross muscle atrophy, muscle strength muscle strength 5 out of 5 in all 4 extremities, no contractures Neuro: CN II-XII grossly intact Psych: Alert, oriented, appropriate affect Results - Lab Results Most recent lab results Calcium 8.6 mg/dL (8.4-10.2) 02/26/24 06:44 Phosphorus 3.8 mg/dL (2.5-4.5) 02/21/24 09:40 Magnesium 1.9 mg/dL (1.6-2.3) 02/24/24 06:53 02/26/24 06:44 02/26/24 15:05 Assessment and Plan Assessment: 1. YI, ATN (UA shows hyaline casts of 47) vs urine retention. Also need to r/o hepatorenal syndrome (MRI of the abdomen with and without contrast while admitted showing evidence of cirrhosis). 2. Volume overload 3. Acute ischemic stroke suggestive of embolic phenomena, brain MRI from 02/22 shows few scattered jaiden foci of restricted diffusion compatible with microinfarcts 4. Decompensated cirrhosis secondary to history of alcoholism 5. Non-anion gap metabolic acidosis secondary to acute kidney injury Plan: - dc fluids Lasix 40mg IV now x1 - daily weights Ordered bladder scan Strict I's and O's Avoid nephrotoxic agents - Add Sandostatin if no evidence of urine retention. Recommend to hold IV albumin today given the significant hypervolemia. Add low-dose sodium bicarb Follow-up on labs in the a.m. Thank you for the consultation. Will continue to follow the patient. Patient is seen and examined with the resident. Agree with resident's findings assessment and plan.
[2024-02-26] MEDS: FUROSEMIDE 10 MG/ML 4 ML VIAL IV STA (12:28)
--- NOTE | 2024-02-26 12:39 | P.PN ---
Subjective Progress Note Date: 02/26/24 Hospital Course: 68-year-old male with history of prior alcohol dependence presenting with right- sided blurry vision which lasted 5 minutes. He is also complaining of worsening weakness and new onset jaundice for the last 2 months. In the ED, temperature was 98.3, pulse 99, respiratory rate 16, blood pressure 149/72, saturating at 95% on room air. WBC 8.5, hemoglobin 10.8, platelet 94, INR 1.4, sodium 132, creatinine 0.75, total bili 5.2, conjugated bili 0.1, unconjugated 2.3, AST 59, ALT 18, ALP 113, troponin 0. due to 9, lipase 816, large blood and urinalysis. EKG independently interpreted, shows sinus tachycardia. CT head does not show any acute process. Patient admitted for worsening jaundice and possible TIA. GI and neurology consulted. Abdominal ultrasound does not show any portal vein thrombosis. Carotid Doppler ultrasound shows less than 50% stenosis bilateral carotids. MRI of the brain shows multifocal infarcts likely embolic in nature. MRI of the abdomen shows liver cirrhosis and portal hypertension with splenomegaly. Echocardiogram shows ejection fraction 60 to 65%. Severely increased left atrial volume. Trace MR. Mild to moderate . Mild to moderate TR. Negative bubble study. Patient continue be on cardiac telemetry. Patient reports slight improvement in his symptoms today. Symptomatic management will be continued with diuretics. Nephrology is consulted for YI due to ATN. Subjective: Patient seen and examined at bedside. No acute events overnight. Denies any new complaints. Apetite is poor. Pertinent positives and negatives as discussed above, a complete review of systems was performed and all other systems are negative. Vitals Signs Reviewed. General: nontoxic, no distress, appears at stated age, obese Derm: warm, dry, jaundice, stage II ulcer on left buttock Head: atraumatic, normocephalic, symmetric Eyes: EOMI, no lid lag, scleral icterus, pupils equal round reactive to light ENT: Nose and ears atraumatic Neck: No thyromegaly, supple Mouth: no lip lesion, mucus membranes moist Cardiovascular: S1S2 reg, 3/6 systolic murmur, 2+ pitting edema RLE, 1+ pitting edema LLE Lungs: Decreased breath sounds bilaterally, no rhonchi, no rales, no wheeze, no accessory muscle use Abdominal: soft, nontender to palpation, no guarding, no appreciable organomegaly Ext: no gross muscle atrophy, muscle strength muscle strength 5 out of 5 in all 4 extremities, no contractures Neuro: CN II-XII grossly intact Psych: Alert, oriented, appropriate affect Data Reviewed Today: Pertinent Labs: WBC 10.0, hemoglobin 10.1, hematocrit 31.8, platelet count 89, sodium 132, potassium 4.8, bicarb 13, chloride 106, BUN 61, creatinine 1.58, glucose 146 Imaging: Chest x-ray shows pulmonary vascular congestion and bilateral pleural effusions Assessment and Plan: Active: # Decompensated cirrhosis secondary to history of alcoholism #Splenomegaly #Normocytic anemia secondary to above #Thrombocytopenia secondary to above #Elevated INR, secondary to above #Hyperbilirubinemia #Hypoalbuminemia secondary above #Hypervolemic hyponatremia #Elevated lipase -Patient has a history of heavy alcohol use, possibly alcoholic cirrhosis -GI note reviewed, outpatient follow-up, abdominal MRI shows liver cirrhosis, portal hypertension and splenomegaly, increase protein intake -Patient not on any medications at home -Acute hepatitis panel is negative -Recent CT abdomen pelvis from last month showed splenomegaly and left upper quadrant varices with splenorenal shunt, may be seen in setting of portal venous hypertension -IV Protonix 40 daily Continue to monitor sodium level Continue to monitor CMP and CBC MELD-Na = 20 points, 19.6% estimated 3-month mortality Ordered ammonia; f/u result #Acute Kidney Injury, likely secondary to ATN EFGFR 46, creatinine 1.53 Ordered Urine Na, Creatinine, urea, osm; results pending Urinalysis shows proteinura, hematuria, hyaline casts Renal and bladder US shows no obstructive uropathy d/c spironolactine and lasix nephrology is consulted; note reviewed; IV NS is d/c, Started on IV Lasix 40mg x 1, Bladder scan to r/o retention monitor CMP in a.m. #Brief episode of blurry vision #Multifocal stroke, likely embolic MRI of the brain shows multifocal infarcts likely embolic in nature. Echo shows ejection fraction 60 to 65% Bubble study negative -Neurology consulted Continue on aspirin 81 mg p.o. daily Patient will likely need cardiac event monitoring for 30 days to rule out paroxysmal A-fib -Speech Therapy consult to r/o dysphagia, silent aspiration and for cognitive evaluation #Stage II ulceration on left buttock, present on admission -Local wound care -Noninfected -Topical zinc oxide paste as needed #Weakness -PT ordered #Elevated troponin, ACS ruled out -No active chest pain -Continue telemetry monitoring -Downtrending #Hematuria -Outpatient urology follow-up -Patient is coagulopathic due to liver disease #Hyperglycemia secondary to Type II DM Serum glucose 146 - A1c is 6.8% - Monitor serum glucose level - low dose SSI, diabetes education on discharge DVT ppx: SCDs Code status: Full code Anticipated discharge place: Pending clinical course Anticipated discharge time: pending clinical course I saw and evaluated the patient during the paez and critical portions of this encounter, and discussed the case in detail with the resident author of this note, I agree with the Assessment and Plan, and my changes, if any, are highlighted in blue. Objective - Vital Signs Vital signs: Vital Signs Temp 98.1 F 02/26/24 07:26 Pulse 104 H 02/26/24 11:00 Resp 16 02/26/24 11:00 BP 126/66 02/26/24 11:00 Pulse Ox 93 L 02/26/24 11:00 FiO2 Intake & Output 02/25/24 02/26/24 02/26/24 18:59 06:59 18:59 Intake Total 472 Balance 472 Weight 104.2 kg 104.2 kg Intake: Oral 472 Other: Voiding Method Urinal Urinal Toilet Urinal # Voids 0 1 # Bowel Movements 0 - Labs CBC & Chem 7: 02/26/24 06:44 02/26/24 15:05 Labs: Abnormal Lab Results - Last 24 Hours (Table) 02/25/24 02/25/24 02/25/24 Range/Units 12:17 12:17 12:17 RBC (4.30-5.90) m/uL Hgb (13.0-17.5) gm/dL Hct (39.0-53.0) % RDW (11.5-15.5) % Plt Count (150-450) k/uL Neutrophils # (1.3-7.7) k/uL Sodium (137-145) mmol/L Carbon Dioxide (22-30) mmol/L BUN (9-20) mg/dL Creatinine (0.66-1.25) mg/dL Glucose (74-99) mg/dL POC Glucose (mg/dL) (70-110) mg/dL Urine Protein Trace H (Negative) Urine Blood Large H (Negative) Urine Bilirubin 1+ H (Negative) Ur Leukocyte Esterase Trace H (Negative) Urine RBC 74 H (0-5) /hpf Urine WBC 8 H (0-5) /hpf Hyaline Casts 47 H (0-2) /lpf Urine Mucus Rare H (None) /hpf Urine Osmolality 384 L (400-1100) mOsm/kg Ur Random Sodium <20 L (40-220) mmol/L 02/25/24 02/25/24 02/25/24 Range/Units 12:19 16:55 20:14 RBC (4.30-5.90) m/uL Hgb (13.0-17.5) gm/dL Hct (39.0-53.0) % RDW (11.5-15.5) % Plt Count (150-450) k/uL Neutrophils # (1.3-7.7) k/uL Sodium (137-145) mmol/L Carbon Dioxide (22-30) mmol/L BUN (9-20) mg/dL Creatinine (0.66-1.25) mg/dL Glucose (74-99) mg/dL POC Glucose (mg/dL) 204 H 146 H 233 H (70-110) mg/dL Urine Protein (Negative) Urine Blood (Negative) Urine Bilirubin (Negative) Ur Leukocyte Esterase (Negative) Urine RBC (0-5) /hpf Urine WBC (0-5) /hpf Hyaline Casts (0-2) /lpf Urine Mucus (None) /hpf Urine Osmolality (400-1100) mOsm/kg Ur Random Sodium (40-220) mmol/L 02/26/24 02/26/24 02/26/24 Range/Units 06:18 06:44 06:44 RBC 3.18 L (4.30-5.90) m/uL Hgb 10.1 L (13.0-17.5) gm/dL Hct 31.8 L (39.0-53.0) % RDW 17.0 H (11.5-15.5) % Plt Count 89 L (150-450) k/uL Neutrophils # 7.9 H (1.3-7.7) k/uL Sodium 132 L (137-145) mmol/L Carbon Dioxide 13 L (22-30) mmol/L BUN 61 H (9-20) mg/dL Creatinine 1.58 H (0.66-1.25) mg/dL Glucose 146 H (74-99) mg/dL POC Glucose (mg/dL) 159 H (70-110) mg/dL Urine Protein (Negative) Urine Blood (Negative) Urine Bilirubin (Negative) Ur Leukocyte Esterase (Negative) Urine RBC (0-5) /hpf Urine WBC (0-5) /hpf Hyaline Casts (0-2) /lpf Urine Mucus (None) /hpf Urine Osmolality (400-1100) mOsm/kg Ur Random Sodium (40-220) mmol/L 02/26/24 Range/Units 11:53 RBC (4.30-5.90) m/uL Hgb (13.0-17.5) gm/dL Hct (39.0-53.0) % RDW (11.5-15.5) % Plt Count (150-450) k/uL Neutrophils # (1.3-7.7) k/uL Sodium (137-145) mmol/L Carbon Dioxide (22-30) mmol/L BUN (9-20) mg/dL Creatinine (0.66-1.25) mg/dL Glucose (74-99) mg/dL POC Glucose (mg/dL) 187 H (70-110) mg/dL Urine Protein (Negative) Urine Blood (Negative) Urine Bilirubin (Negative) Ur Leukocyte Esterase (Negative) Urine RBC (0-5) /hpf Urine WBC (0-5) /hpf Hyaline Casts (0-2) /lpf Urine Mucus (None) /hpf Urine Osmolality (400-1100) mOsm/kg Ur Random Sodium (40-220) mmol/L
[2024-02-26 16:18] LABS: Glucose,Whole Blood 218 mg/dL (70-110)
[2024-02-26 16:33] LABS: African American GFR (CKD) 55 (>60 ml/min/1.73 sqM); Anion Gap 10 mmol/L; Blood Urea Nitrogen 66 mg/dL (9-20); Calcium 8.4 mg/dL (8.4-10.2); Carbon Dioxide 17 mmol/L (22-30); Chloride 104 mmol/L (98-107); Glucose 206 mg/dL (74-99); Non-African American GFR(CKD) 47 (>60 ml/min/1.73 sqM); Sodium 131 mmol/L (137-145)
[2024-02-26 16:40] LABS: Potassium 5.5 mmol/L (3.5-5.1)
--- NOTE | 2024-02-26 16:54 | P.PN ---
Subjective Progress Note Date: 02/26/24 Patient was seen for a follow-up. Patient is laying comfortably the recliner. Patient's was also present. Patient is very much alert and awake today. Patient denies any new focal symptoms. Patient's renal functions have slightly worsened. Nephrology on board. Patient states that he stopped drinking alcohol 2 months ago. No new concerns. Objective - Vital Signs Vital signs: Vital Signs Temp 97.9 F 02/26/24 15:13 Pulse 105 H 02/26/24 15:13 Resp 20 02/26/24 15:13 BP 135/56 02/26/24 15:13 Pulse Ox 97 02/26/24 15:13 FiO2 Intake & Output 02/25/24 02/26/24 02/26/24 18:59 06:59 18:59 Intake Total 472 Balance 472 Weight 104.2 kg 104.2 kg Intake: Oral 472 Other: Voiding Method Urinal Urinal External Catheter # Voids 0 1 1 # Bowel Movements 0 - Exam Patient is alert and awake. Speech and language functions are normal. Pupils are equal, round and reacting, visual francois are full with no neglect. Face is symmetric and tongue protrudes to the midline. On muscle strength testing there is no pronator drift and the strength is normal in arms distally and proximally. No ataxia for [id number] testing. Sensory to touch is equal. Patient has mild asterixis. - Labs CBC & Chem 7: 02/26/24 06:44 02/26/24 15:05 Labs: Abnormal Lab Results - Last 24 Hours (Table) 02/25/24 02/25/24 02/25/24 Range/Units 12:17 12:17 16:55 RBC (4.30-5.90) m/uL Hgb (13.0-17.5) gm/dL Hct (39.0-53.0) % RDW (11.5-15.5) % Plt Count (150-450) k/uL Neutrophils # (1.3-7.7) k/uL Sodium (137-145) mmol/L Carbon Dioxide (22-30) mmol/L BUN (9-20) mg/dL Creatinine (0.66-1.25) mg/dL Glucose (74-99) mg/dL POC Glucose (mg/dL) 146 H (70-110) mg/dL Urine Osmolality 384 L (400-1100) mOsm/kg Ur Random Sodium <20 L (40-220) mmol/L 02/25/24 02/26/24 02/26/24 Range/Units 20:14 06:18 06:44 RBC 3.18 L (4.30-5.90) m/uL Hgb 10.1 L (13.0-17.5) gm/dL Hct 31.8 L (39.0-53.0) % RDW 17.0 H (11.5-15.5) % Plt Count 89 L (150-450) k/uL Neutrophils # 7.9 H (1.3-7.7) k/uL Sodium (137-145) mmol/L Carbon Dioxide (22-30) mmol/L BUN (9-20) mg/dL Creatinine (0.66-1.25) mg/dL Glucose (74-99) mg/dL POC Glucose (mg/dL) 233 H 159 H (70-110) mg/dL Urine Osmolality (400-1100) mOsm/kg Ur Random Sodium (40-220) mmol/L 02/26/24 02/26/24 Range/Units 06:44 11:53 RBC (4.30-5.90) m/uL Hgb (13.0-17.5) gm/dL Hct (39.0-53.0) % RDW (11.5-15.5) % Plt Count (150-450) k/uL Neutrophils # (1.3-7.7) k/uL Sodium 132 L (137-145) mmol/L Carbon Dioxide 13 L (22-30) mmol/L BUN 61 H (9-20) mg/dL Creatinine 1.58 H (0.66-1.25) mg/dL Glucose 146 H (74-99) mg/dL POC Glucose (mg/dL) 187 H (70-110) mg/dL Urine Osmolality (400-1100) mOsm/kg Ur Random Sodium (40-220) mmol/L Assessment and Plan Assessment: * Acute ischemic stroke, small, multifocal, suggestive of possible embolic phenomenon. Patient had presented with subjective blurred vision in the right eye, although was involving binocular vision when he would close 1 or the other eye. No associated focal neurological symptoms. MRI of the brain revealed multifocal areas of ischemia, but slightly more prominent involving the left parieto-occipital junction. * Jaundice, with elevated lipase/amylase * Hepatic cirrhosis, likely from alcoholism * Thrombocytopenia, likely due to cirrhosis * Acutely decreased renal function, being worked up. Slightly worsening. * Alcoholism, quit 2 months ago. * Previous history of light tobacco use. * New onset diabetes with A1c 6.8 * Elevated cardiac enzymes Plan: * MRI of the brain without contrast, revealed few scattered foci of restricted diffusion compatible with microinfarcts. Correlate for embolic phenomenon. Surgical changes to the left temporal bone with high T2 fluid. Nonspecific white matter changes. I personally reviewed MRI of the brain, agree with the findings. On my review, I do not see any surgical changes. Will review with the radiologist. * 2-D echo revealed LVEF 60 to 65%. Mildly increased septal wall thickness. Negative agitated saline bubble study for [id number] shunt. Severely increased left atrial volume. Mild aortic dilation. No valvular abnormalities. * Recommend 30-day event monitoring rule out paroxysmal atrial fibrillation * Carotid Doppler, revealed less than 50% stenosis of bilateral carotid bifurcations. Antegrade flow in both vertebral arteries. * Fasting a.m. lipid panel with cholesterol 100, LDL 57, HDL 11 and triglycerides 155. Lipids are well-controlled. Patient high risk for statins because of liver disease * Hemoglobin A1c 6.8. Patient was not known to be diabetic. PCP to address diabetes * Blood pressure is well-controlled. * Patient's renal functions has slightly deteriorated, patient being hydrated. Nephrology following. * Patient's symptoms have resolved. We will start aspirin with loading dose of 324 mg x 1 dose followed by aspirin 81 mg daily. Avoid DAPT because of thrombocytopenia. * For elevated cardiac enzymes, we will defer to IM. * Neuro checks every shift. * PT, OT speech therapist * Telemetry monitoring rule out any arrhythmia * Other medical management as per IM and other specialties on board. * DVT prophylaxis: SCDs, due to thrombocytopenia. * Neurologically clear for discharge to rehab facility. We will sign off. Please reconsult neurology if any concerns.
[2024-02-26 20:24] LABS: Glucose,Whole Blood 173 mg/dL (70-110)
[2024-02-26] MEDS: LACTULOSE 20 GM/30 ML CUP PO SCH (21:36)
[2024-02-26] MEDS ORDERED: LABETALOL 5 MG/ML VIAL MDV IVP STA (23:31)
[2024-02-27 06:19] LABS: Glucose,Whole Blood 186 mg/dL (70-110)
[2024-02-27 07:20] LABS: ALT 16 U/L (4-49); AST 44 U/L (17-59); African American GFR (CKD) 53 (>60 ml/min/1.73 sqM); Albumin 2.8 g/dL (3.5-5.0); Alkaline Phosphatase 122 U/L (38-126); Anion Gap 11 mmol/L; Blood Urea Nitrogen 69 mg/dL (9-20); Calcium 8.8 mg/dL (8.4-10.2); Carbon Dioxide 15 mmol/L (22-30); Chloride 106 mmol/L (98-107); Glucose 191 mg/dL (74-99); Non-African American GFR(CKD) 46 (>60 ml/min/1.73 sqM); Potassium 5.3 mmol/L (3.5-5.1); Sodium 132 mmol/L (137-145); Total Bilirubin 5.2 mg/dL (0.2-1.3); Total Protein 7.4 g/dL (6.3-8.2)
[2024-02-27 07:37] LABS: Anisocytosis Slight; HCT 31.4 % (39.0-53.0); HGB 10.6 gm/dL (13.0-17.5); MCH 32.6 pg (25.0-35.0); MCHC 33.7 g/dL (31.0-37.0); MCV 96.9 fL (80.0-100.0); Macrocytosis Slight; Mean Platelet Volume 8.9; RBC 3.24 m/uL (4.30-5.90); RDW 17.8 % (11.5-15.5); WBC 13.4 k/uL (3.8-10.6)
[2024-02-27 07:39] LABS: Platelet Count 95 k/uL (150-450)
[2024-02-27] MEDS ORDERED: LABETALOL 100 MG TAB PO SCH (09:00)
[2024-02-27] MEDS: LACTULOSE 20 GM/30 ML CUP PO SCH (09:12)
[2024-02-27 11:43] LABS: Glucose,Whole Blood 208 mg/dL (70-110)
--- NOTE | 2024-02-27 14:11 | P.PN ---
Subjective Progress Note Date: 02/27/24 Patient seen in follow-up for YI. Still feels short of breath and swollen. Renal function stable today and made more urine with IV Lasix yesterday. General: nontoxic, no distress, appears at stated age, obese Neck: No thyromegaly, supple Mouth: no lip lesion, mucus membranes moist Cardiovascular: S1S2 reg, 3/6 systolic murmur, 2+ pitting edema RLE, 1+ pitting edema LLE Lungs: Decreased breath sounds bilaterally, no rhonchi, no rales, no wheeze, no accessory muscle use Abdominal: soft, nontender to palpation, no guarding Objective - Vital Signs Vital signs: Vital Signs Temp 97.5 F L 02/27/24 03:10 Pulse 117 H 02/27/24 03:10 Resp 20 02/27/24 03:10 BP 162/69 02/27/24 03:10 Pulse Ox 94 L 02/27/24 10:03 FiO2 Intake & Output 02/26/24 02/27/24 02/27/24 18:59 06:59 18:59 Output Total 750 100 Balance -750 -100 Weight 104.2 kg 105.5 kg Output: Urine 750 100 Straight 375 Other: Voiding Method External Catheter External Catheter # Voids 1 - Labs CBC & Chem 7: 02/27/24 06:52 02/27/24 06:52 Labs: Abnormal Lab Results - Last 24 Hours (Table) 02/26/24 02/26/24 02/26/24 Range/Units 11:53 15:05 16:16 WBC (3.8-10.6) k/uL RBC (4.30-5.90) m/uL Hgb (13.0-17.5) gm/dL Hct (39.0-53.0) % RDW (11.5-15.5) % Plt Count (150-450) k/uL Sodium 131 L (137-145) mmol/L Potassium 5.5 H (3.5-5.1) mmol/L Carbon Dioxide 17 L (22-30) mmol/L BUN 66 H (9-20) mg/dL Creatinine 1.50 H (0.66-1.25) mg/dL Glucose 206 H (74-99) mg/dL POC Glucose (mg/dL) 187 H 218 H (70-110) mg/dL Total Bilirubin (0.2-1.3) mg/dL Ammonia (<30) umol/L Albumin (3.5-5.0) g/dL 02/26/24 02/26/24 02/27/24 Range/Units 18:26 20:23 06:16 WBC (3.8-10.6) k/uL RBC (4.30-5.90) m/uL Hgb (13.0-17.5) gm/dL Hct (39.0-53.0) % RDW (11.5-15.5) % Plt Count (150-450) k/uL Sodium (137-145) mmol/L Potassium (3.5-5.1) mmol/L Carbon Dioxide (22-30) mmol/L BUN (9-20) mg/dL Creatinine (0.66-1.25) mg/dL Glucose (74-99) mg/dL POC Glucose (mg/dL) 173 H 186 H (70-110) mg/dL Total Bilirubin (0.2-1.3) mg/dL Ammonia 114 H (<30) umol/L Albumin (3.5-5.0) g/dL 02/27/24 02/27/24 Range/Units 06:52 06:52 WBC 13.4 H (3.8-10.6) k/uL RBC 3.24 L (4.30-5.90) m/uL Hgb 10.6 L (13.0-17.5) gm/dL Hct 31.4 L (39.0-53.0) % RDW 17.8 H (11.5-15.5) % Plt Count 95 L (150-450) k/uL Sodium 132 L (137-145) mmol/L Potassium 5.3 H (3.5-5.1) mmol/L Carbon Dioxide 15 L (22-30) mmol/L BUN 69 H (9-20) mg/dL Creatinine 1.54 H (0.66-1.25) mg/dL Glucose 191 H (74-99) mg/dL POC Glucose (mg/dL) (70-110) mg/dL Total Bilirubin 5.2 H (0.2-1.3) mg/dL Ammonia (<30) umol/L Albumin 2.8 L (3.5-5.0) g/dL Assessment and Plan Assessment: 1. YI due to ATN (UA shows hyaline casts of 47). Doubt hepatorenal syndrome as this is diagnosis of exclusion. Creatinine stable 1.5 today. 2. Volume overload 3. Acute ischemic stroke suggestive of embolic phenomena, brain MRI from 02/22 shows few scattered jaiden foci of restricted diffusion compatible with microinfarcts 4. Decompensated cirrhosis secondary to history of alcoholism 5. Non-anion gap metabolic acidosis secondary to acute kidney injury Plan: Schedule Lasix IV 20mg BID given volume overload Consider Sandostatin and sodium bicarb Strict I/O's, daily labs
--- NOTE | 2024-02-27 16:32 | P.PN ---
Subjective Progress Note Date: 02/27/24 Hospital Course: 68-year-old male with history of prior alcohol dependence presenting with right- sided blurry vision which lasted 5 minutes. He is also complaining of worsening weakness and new onset jaundice for the last 2 months. In the ED, temperature was 98.3, pulse 99, respiratory rate 16, blood pressure 149/72, saturating at 95% on room air. WBC 8.5, hemoglobin 10.8, platelet 94, INR 1.4, sodium 132, creatinine 0.75, total bili 5.2, conjugated bili 0.1, unconjugated 2.3, AST 59, ALT 18, ALP 113, troponin 0. due to 9, lipase 816, large blood and urinalysis. EKG independently interpreted, shows sinus tachycardia. CT head does not show any acute process. Patient admitted for worsening jaundice and possible TIA. GI and neurology consulted. Abdominal ultrasound does not show any portal vein thrombosis. Carotid Doppler ultrasound shows less than 50% stenosis bilateral carotids. MRI of the brain shows multifocal infarcts likely embolic in nature. MRI of the abdomen shows liver cirrhosis and portal hypertension with splenomegaly. Echocardiogram shows ejection fraction 60 to 65%. Severely increased left atrial volume. Trace MR. Mild to moderate . Mild to moderate TR. Negative bubble study. Patient continue be on cardiac telemetry. Patient reports slight improvement in his symptoms today. Symptomatic management will be continued with diuretics. Nephrology is consulted for YI due to ATN. Creatinine level stable. Subjective: Patient seen and examined at bedside. No acute events overnight. Denies any new complaints. Apetite is poor. Pertinent positives and negatives as discussed above, a complete review of systems was performed and all other systems are negative. Vitals Signs Reviewed. General: nontoxic, no distress, appears at stated age, obese Derm: warm, dry, jaundice, stage II ulcer on left buttock Head: atraumatic, normocephalic, symmetric Eyes: EOMI, no lid lag, scleral icterus, pupils equal round reactive to light ENT: Nose and ears atraumatic, oropharynx is erythematous with no tonsillar exudate Neck: No thyromegaly, supple Mouth: no lip lesion, mucus membranes moist Cardiovascular: S1S2 reg, 3/6 systolic murmur, 2+ pitting edema RLE, 1+ pitting edema LLE Lungs: Decreased breath sounds bilaterally, no rhonchi, no rales, no wheeze, no accessory muscle use Abdominal: soft, nontender to palpation, no guarding, no appreciable organ omegaly Ext: no gross muscle atrophy, muscle strength muscle strength 5 out of 5 in all 4 extremities, no contractures Neuro: CN II-XII grossly intact Psych: Alert, oriented, appropriate affect Data Reviewed Today: Pertinent Labs: WBC 13.4, hemoglobin 10.6, platelet count 95, sodium 132, potass ium 5.3, chloride 106, bicarb 15, BUN 69, creatinine 1.54, glucose 191, magnesium 2.0, albumin 2.8 Imaging: No new imaging Assessment and Plan: Active: # Decompensated cirrhosis secondary to history of alcoholism #Splenomegaly #Normocytic anemia secondary to above #Thrombocytopenia secondary to above #Elevated INR, secondary to above #Hyperbilirubinemia #Hypoalbuminemia secondary above #Hypervolemic hyponatremia #Elevated lipase -Patient has a history of heavy alcohol use, possibly alcoholic cirrhosis -GI note reviewed, outpatient follow-up, abdominal MRI shows liver cirrhosis, portal hypertension and splenomegaly, increase protein intake -Patient not on any medications at home -Acute hepatitis panel is negative -Recent CT abdomen pelvis from last month showed splenomegaly and left upper quadrant varices with splenorenal shunt, may be seen in setting of portal venous hypertension -IV Protonix 40 daily Continue to monitor sodium level Continue to monitor BMP and CBC MELD-Na = 20 points, 19.6% estimated 3-month mortality Ammonia 114; lactulose 20 mg p.o. 3 times daily Strict I's and O's, Daily weights #Acute Kidney Injury, likely secondary to ATN EFGFR 46, creatinine 1.53 Ordered Urine Na, Creatinine, urea, osm; results pending Urinalysis shows proteinura, hematuria, hyaline casts Renal and bladder US shows no obstructive uropathy nephrology is consulted; note reviewed; Lasix 20 mg IV every 12 hours monitor BMP and mag #Non-anion gap metabolic acidosis chloride 106, bicarb 15 Ordered urine osmolality, urine pH, urine potassium, urine sodium, urine chloride IV normal saline is discontinued #Oropharyngitis Order respiratory viral panel #Brief episode of blurry vision #Multifocal stroke, likely embolic MRI of the brain shows multifocal infarcts likely embolic in nature. Echo shows ejection fraction 60 to 65% Bubble study negative Neurology signed off Continue on aspirin 81 mg p.o. daily Patient will likely need cardiac event monitoring for 30 days to rule out paroxysmal A-fib #Stage II ulceration on left buttock, present on admission -Local wound care -Noninfected -Topical zinc oxide paste as needed #Weakness -PT ordered #Elevated troponin, ACS ruled out -No active chest pain -Continue telemetry monitoring -Downtrending #Hematuria -Outpatient urology follow-up -Patient is coagulopathic due to liver disease #Hyperglycemia secondary to Type II DM Serum glucose 146 - A1c is 6.8% - Monitor serum glucose level - low dose SSI, diabetes education on discharge DVT ppx: SCDs Code status: Full code Anticipated discharge place: Pending clinical course Anticipated discharge time: pending clinical course I saw and evaluated the patient during the paez and critical portions of this encounter, and discussed the case in detail with the resident author of this note, I agree with the Assessment and Plan, and my changes, if any, are hig hlighted in blue. Objective - Vital Signs Vital signs: Vital Signs Temp 97.5 F L 02/27/24 03:10 Pulse 117 H 02/27/24 03:10 Resp 20 02/27/24 03:10 BP 162/69 02/27/24 03:10 Pulse Ox 94 L 02/27/24 10:03 FiO2 Intake & Output 02/26/24 02/27/24 02/27/24 18:59 06:59 18:59 Output Total 750 100 Balance -750 -100 Weight 104.2 kg 105.5 kg Output: Urine 750 100 Straight 375 Other: Voiding Method External Catheter External Catheter # Voids 1 # Bowel Movements 1 - Labs CBC & Chem 7: 02/27/24 06:52 02/27/24 06:52 Labs: Abnormal Lab Results - Last 24 Hours (Table) 02/26/24 02/26/24 02/26/24 Range/Units 15:05 16:16 18:26 WBC (3.8-10.6) k/uL RBC (4.30-5.90) m/uL Hgb (13.0-17.5) gm/dL Hct (39.0-53.0) % RDW (11.5-15.5) % Plt Count (150-450) k/uL Sodium 131 L (137-145) mmol/L Potassium 5.5 H (3.5-5.1) mmol/L Carbon Dioxide 17 L (22-30) mmol/L BUN 66 H (9-20) mg/dL Creatinine 1.50 H (0.66-1.25) mg/dL Glucose 206 H (74-99) mg/dL POC Glucose (mg/dL) 218 H (70-110) mg/dL Total Bilirubin (0.2-1.3) mg/dL Ammonia 114 H (<30) umol/L Albumin (3.5-5.0) g/dL 02/26/24 02/27/24 02/27/24 Range/Units 20:23 06:16 06:52 WBC 13.4 H (3.8-10.6) k/uL RBC 3.24 L (4.30-5.90) m/uL Hgb 10.6 L (13.0-17.5) gm/dL Hct 31.4 L (39.0-53.0) % RDW 17.8 H (11.5-15.5) % Plt Count 95 L (150-450) k/uL Sodium (137-145) mmol/L Potassium (3.5-5.1) mmol/L Carbon Dioxide (22-30) mmol/L BUN (9-20) mg/dL Creatinine (0.66-1.25) mg/dL Glucose (74-99) mg/dL POC Glucose (mg/dL) 173 H 186 H (70-110) mg/dL Total Bilirubin (0.2-1.3) mg/dL Ammonia (<30) umol/L Albumin (3.5-5.0) g/dL 02/27/24 02/27/24 Range/Units 06:52 11:41 WBC (3.8-10.6) k/uL RBC (4.30-5.90) m/uL Hgb (13.0-17.5) gm/dL Hct (39.0-53.0) % RDW (11.5-15.5) % Plt Count (150-450) k/uL Sodium 132 L (137-145) mmol/L Potassium 5.3 H (3.5-5.1) mmol/L Carbon Dioxide 15 L (22-30) mmol/L BUN 69 H (9-20) mg/dL Creatinine 1.54 H (0.66-1.25) mg/dL Glucose 191 H (74-99) mg/dL POC Glucose (mg/dL) 208 H (70-110) mg/dL Total Bilirubin 5.2 H (0.2-1.3) mg/dL Ammonia (<30) umol/L Albumin 2.8 L (3.5-5.0) g/dL
[2024-02-27 16:55] LABS: Glucose,Whole Blood 187 mg/dL (70-110)
[2024-02-27] MEDS: FUROSEMIDE 10 MG/ML 2 ML VIAL IV SCH (16:59)
[2024-02-27 20:52] LABS: Glucose,Whole Blood 212 mg/dL (70-110)
[2024-02-28 06:26] LABS: Glucose,Whole Blood 196 mg/dL (70-110)
[2024-02-28 08:15] LABS: Anisocytosis Slight; Basophils % (A) 0 %; Eosinophils # (A) 0.1 k/uL (0-0.7); Eosinophils % (A) 1 %; HCT 32.1 % (39.0-53.0); HGB 10.1 gm/dL (13.0-17.5); Hypochromasia Marked; Lymphocytes % (A) 11 %; MCH 31.9 pg (25.0-35.0); MCHC 31.4 g/dL (31.0-37.0); MCV 101.7 fL (80.0-100.0); Macrocytosis Moderate; Monocytes # (A) 0.4 k/uL (0-1.0); Monocytes % (A) 5 %; Neutrophils # (A) 7.4 k/uL (1.3-7.7); Neutrophils % (A) 79 %; RBC 3.15 m/uL (4.30-5.90); RDW 17.4 % (11.5-15.5); WBC 9.4 k/uL (3.8-10.6)
[2024-02-28 08:47] LABS: African American GFR (CKD) 45 (>60 ml/min/1.73 sqM); Anion Gap 11 mmol/L; Blood Urea Nitrogen 78 mg/dL (9-20); Calcium 8.8 mg/dL (8.4-10.2); Carbon Dioxide 17 mmol/L (22-30); Chloride 107 mmol/L (98-107); Glucose 189 mg/dL (74-99); Magnesium 2.1 mg/dL (1.6-2.3); Non-African American GFR(CKD) 39 (>60 ml/min/1.73 sqM); Potassium 4.1 mmol/L (3.5-5.1); Sodium 135 mmol/L (137-145)
[2024-02-28 08:49] LABS: Platelet Count 81 k/uL (150-450)
[2024-02-28 11:26] LABS: Glucose,Whole Blood 192 mg/dL (70-110)
--- NOTE | 2024-02-28 11:52 | P.PN ---
Subjective Progress Note Date: 02/28/24 Patient seen in follow-up for YI. Still feels short of breath and swollen. Vital signs are stable. General: No acute distress. HEENT: Head exam is unremarkable. LUNGS: No audible rhonchi or wheezes. HEART: Rate and Rhythm are regular. ABDOMEN: Nontender. EXTREMITITES: +LE edema. Objective - Vital Signs Vital signs: Vital Signs Temp 97.5 F L 02/28/24 04:00 Pulse 102 H 02/28/24 04:00 Resp 18 02/28/24 04:00 BP 126/71 02/28/24 04:00 Pulse Ox 97 02/28/24 09:08 FiO2 Intake & Output 02/27/24 02/28/24 02/28/24 18:59 06:59 18:59 Weight 93.5 kg Other: Voiding Method External Catheter External Catheter # Bowel Movements 1 2 1 - Labs CBC & Chem 7: 02/28/24 07:08 02/28/24 07:08 Labs: Abnormal Lab Results - Last 24 Hours (Table) 02/27/24 02/27/24 02/27/24 Range/Units 11:41 16:54 20:45 RBC (4.30-5.90) m/uL Hgb (13.0-17.5) gm/dL Hct (39.0-53.0) % MCV (80.0-100.0) fL RDW (11.5-15.5) % Plt Count (150-450) k/uL Sodium (137-145) mmol/L Carbon Dioxide (22-30) mmol/L BUN (9-20) mg/dL Creatinine (0.66-1.25) mg/dL Glucose (74-99) mg/dL POC Glucose (mg/dL) 208 H 187 H 212 H (70-110) mg/dL 02/28/24 02/28/24 02/28/24 Range/Units 06:13 07:08 07:08 RBC 3.15 L (4.30-5.90) m/uL Hgb 10.1 L (13.0-17.5) gm/dL Hct 32.1 L (39.0-53.0) % MCV 101.7 H (80.0-100.0) fL RDW 17.4 H (11.5-15.5) % Plt Count 81 L (150-450) k/uL Sodium 135 L (137-145) mmol/L Carbon Dioxide 17 L (22-30) mmol/L BUN 78 H (9-20) mg/dL Creatinine 1.75 H (0.66-1.25) mg/dL Glucose 189 H (74-99) mg/dL POC Glucose (mg/dL) 196 H (70-110) mg/dL Assessment and Plan Assessment: 1. YI due to ATN (UA shows hyaline casts of 47). Doubt hepatorenal syndrome as this is diagnosis of exclusion. Creatinine stable 1.7 today. 2. Volume overload 3. Acute ischemic stroke suggestive of embolic phenomena, brain MRI from 02/22 s hows few scattered jaiden foci of restricted diffusion compatible with microinfarcts 4. Decompensated cirrhosis secondary to history of alcoholism 5. Non-anion gap metabolic acidosis secondary to acute kidney injury Plan: Continue Lasix IV 20mg BID given volume overload Urine output improved with diuresis. Consider Sandostatin and sodium bicarb Strict I/O's, daily labs
--- NOTE | 2024-02-28 12:00 | P.PN ---
Subjective Progress Note Date: 02/28/24 Hospital Course: 68-year-old male with history of prior alcohol dependence presenting with right- sided blurry vision which lasted 5 minutes. He is also complaining of worsening weakness and new onset jaundice for the last 2 months. In the ED, temperature was 98.3, pulse 99, respiratory rate 16, blood pressure 149/72, saturating at 95% on room air. WBC 8.5, hemoglobin 10.8, platelet 94, INR 1.4, sodium 132, creatinine 0.75, total bili 5.2, conjugated bili 0.1, unconjugated 2.3, AST 59, ALT 18, ALP 113, troponin 0. due to 9, lipase 816, large blood and urinalysis. EKG independently interpreted, shows sinus tachycardia. CT head does not show any acute process. Patient admitted for worsening jaundice and possible TIA. GI and neurology consulted. Abdominal ultrasound does not show any portal vein thrombosis. Carotid Doppler ultrasound shows less than 50% stenosis bilateral carotids. MRI of the brain shows multifocal infarcts likely embolic in nature. MRI of the abdomen shows liver cirrhosis and portal hypertension with splenomegaly. Echocardiogram shows ejection fraction 60 to 65%. Severely increased left atrial volume. Trace MR. Mild to moderate . Mild to moderate TR. Negative bubble study. Patient continue be on cardiac telemetry. Patient reports slight improvement in his symptoms today. Symptomatic management will be continued with diuretics. Nephrology is consulted for YI due to ATN. Creatinine level stable. Subjective: Patient seen and examined at bedside. Continues to be very confused. Cr worsening today. Nephrology following. Pertinent positives and negatives as discussed above, a complete review of systems was performed and all other systems are negative. Vitals Signs Reviewed. General: nontoxic, no distress, appears at stated age, obese Derm: warm, dry, jaundice, stage II ulcer on left buttock Head: atraumatic, normocephalic, symmetric Eyes: EOMI, no lid lag, scleral icterus, pupils equal round reactive to light ENT: Nose and ears atraumatic, oropharynx is erythematous with no tonsillar exudate Neck: No thyromegaly, supple Mouth: no lip lesion, mucus membranes moist Cardiovascular: S1S2 reg, 3/6 systolic murmur, 2+ pitting edema RLE, 1+ pitting edema LLE Lungs: Decreased breath sounds bilaterally, no rhonchi, no rales, no wheeze, no accessory muscle use Abdominal: soft, nontender to palpation, no guarding, no appreciable org anomegaly Ext: no gross muscle atrophy, muscle strength muscle strength 5 out of 5 in all 4 extremities, no contractures Neuro: CN II-XII grossly intact Psych: Alert, oriented, appropriate affect Data Reviewed Today: Pertinent Labs: WBC 13.4, hemoglobin 10.6, platelet count 95, sodium 132, pota ssium 5.3, chloride 106, bicarb 15, BUN 69, creatinine 1.54, glucose 191, magnesium 2.0, albumin 2.8 Imaging: No new imaging Assessment and Plan: Active: # Decompensated cirrhosis secondary to history of alcoholism #Splenomegaly #Normocytic anemia secondary to above #Thrombocytopenia secondary to above #Elevated INR, secondary to above #Hyperbilirubinemia #Hypoalbuminemia secondary above #Hypervolemic hyponatremia #Elevated lipase -Patient has a history of heavy alcohol use, possibly alcoholic cirrhosis -GI note reviewed, outpatient follow-up, abdominal MRI shows liver cirrhosis, portal hypertension and splenomegaly, increase protein intake -Patient not on any medications at home -Acute hepatitis panel is negative -Recent CT abdomen pelvis from last month showed splenomegaly and left upper quadrant varices with splenorenal shunt, may be seen in setting of portal venous hypertension -IV Protonix 40 daily Continue to monitor sodium level Continue to monitor BMP and CBC MELD-Na = 20 points, 19.6% estimated 3-month mortality Ammonia 114; lactulose 20 mg p.o. 3 times daily Strict I's and O's, Daily weights #Acute Kidney Injury, likely secondary to ATN EFGFR 46, creatinine 1.53 Ordered Urine Na, Creatinine, urea, osm; results pending Urinalysis shows proteinura, hematuria, hyaline casts Renal and bladder US shows no obstructive uropathy nephrology is consulted; note reviewed; Lasix 20 mg IV every 12 hours monitor BMP and mag #Non-anion gap metabolic acidosis chloride 106, bicarb 15 Ordered urine osmolality, urine pH, urine potassium, urine sodium, urine chloride IV normal saline is discontinued #Oropharyngitis Order respiratory viral panel #Brief episode of blurry vision #Multifocal stroke, likely embolic MRI of the brain shows multifocal infarcts likely embolic in nature. Echo shows ejection fraction 60 to 65% Bubble study negative Neurology signed off Continue on aspirin 81 mg p.o. daily Patient will likely need cardiac event monitoring for 30 days to rule out paroxysmal A-fib #Stage II ulceration on left buttock, present on admission -Local wound care -Noninfected -Topical zinc oxide paste as needed #Weakness -PT ordered #Elevated troponin, ACS ruled out -No active chest pain -Continue telemetry monitoring -Downtrending #Hematuria -Outpatient urology follow-up -Patient is coagulopathic due to liver disease #Hyperglycemia secondary to Type II DM Serum glucose 146 - A1c is 6.8% - Monitor serum glucose level - low dose SSI, diabetes education on discharge DVT ppx: SCDs Code status: Full code Anticipated discharge place: Pending clinical course Anticipated discharge time: pending clinical course I saw and evaluated the patient during the paez and critical portions of this encounter, and discussed the case in detail with the resident author of this note, I agree with the Assessment and Plan, and my changes, if any, are h ighlighted in blue. Objective - Vital Signs Vital signs: Vital Signs Temp 97.6 F 02/28/24 08:00 Pulse 109 H 02/28/24 08:00 Resp 20 02/28/24 08:00 BP 145/66 02/28/24 08:00 Pulse Ox 97 02/28/24 09:08 FiO2 Intake & Output 02/27/24 02/28/24 02/28/24 18:59 06:59 18:59 Weight 93.5 kg Other: Voiding Method External Catheter External Catheter External Catheter # Voids 1 # Bowel Movements 1 2 1 - Labs CBC & Chem 7: 02/28/24 07:08 02/28/24 07:08 Labs: Abnormal Lab Results - Last 24 Hours (Table) 02/27/24 02/27/24 02/28/24 Range/Units 16:54 20:45 06:13 RBC (4.30-5.90) m/uL Hgb (13.0-17.5) gm/dL Hct (39.0-53.0) % MCV (80.0-100.0) fL RDW (11.5-15.5) % Plt Count (150-450) k/uL Sodium (137-145) mmol/L Carbon Dioxide (22-30) mmol/L BUN (9-20) mg/dL Creatinine (0.66-1.25) mg/dL Glucose (74-99) mg/dL POC Glucose (mg/dL) 187 H 212 H 196 H (70-110) mg/dL 02/28/24 02/28/24 02/28/24 Range/Units 07:08 07:08 11:23 RBC 3.15 L (4.30-5.90) m/uL Hgb 10.1 L (13.0-17.5) gm/dL Hct 32.1 L (39.0-53.0) % MCV 101.7 H (80.0-100.0) fL RDW 17.4 H (11.5-15.5) % Plt Count 81 L (150-450) k/uL Sodium 135 L (137-145) mmol/L Carbon Dioxide 17 L (22-30) mmol/L BUN 78 H (9-20) mg/dL Creatinine 1.75 H (0.66-1.25) mg/dL Glucose 189 H (74-99) mg/dL POC Glucose (mg/dL) 192 H (70-110) mg/dL
[2024-02-28 12:35] LABS: Potassium,Urine Random 42.1 mmol/L (25.0-125.0)
[2024-02-28 16:47] LABS: Glucose,Whole Blood 173 mg/dL (70-110)
[2024-02-28 20:34] LABS: Glucose,Whole Blood 180 mg/dL (70-110)
[2024-02-29 06:18] LABS: Glucose,Whole Blood 210 mg/dL (70-110)
[2024-02-29 07:50] LABS: Anisocytosis Slight; Basophils % (A) 0 %; Eosinophils % (A) 0 %; HCT 33.2 % (39.0-53.0); HGB 10.5 gm/dL (13.0-17.5); Hypochromasia Moderate; Lymphocytes # (A) 1.3 k/uL (1.0-4.8); Lymphocytes % (A) 10 %; MCH 31.7 pg (25.0-35.0); MCHC 31.5 g/dL (31.0-37.0); MCV 100.4 fL (80.0-100.0); Macrocytosis Moderate; Mean Platelet Volume 8.6; Monocytes # (A) 0.4 k/uL (0-1.0); Monocytes % (A) 3 %; Neutrophils # (A) 10.4 k/uL (1.3-7.7); Neutrophils % (A) 83 %; RDW 17.6 % (11.5-15.5); WBC 12.6 k/uL (3.8-10.6)
[2024-02-29 07:58] LABS: Platelet Count 92 k/uL (150-450)
[2024-02-29 08:19] LABS: VBG PH 7.42 (7.31-7.41)
[2024-02-29 10:12] LABS: African American GFR (CKD) 45 (>60 ml/min/1.73 sqM); Anion Gap 12 mmol/L; Blood Urea Nitrogen 85 mg/dL (9-20); Carbon Dioxide 15 mmol/L (22-30); Chloride 112 mmol/L (98-107); Glucose 195 mg/dL (74-99); Magnesium 2.2 mg/dL (1.6-2.3); Non-African American GFR(CKD) 39 (>60 ml/min/1.73 sqM); Potassium 4.6 mmol/L (3.5-5.1); Sodium 139 mmol/L (137-145)
--- NOTE | 2024-02-29 10:43 | P.PN ---
Subjective Patient is seen in follow-up for acute kidney injury. Renal function stable. Blood pressure stable. On 2 L nasal cannula. present at bedside. Vital signs are stable. General: No acute distress. HEENT: Head exam is unremarkable. On nasal cannula. LUNGS: Scattered rhonchi. HEART: Rate and Rhythm are regular. ABDOMEN: Nontender. Mild distention noted. EXTREMITITES: 2+ edema. Objective - Vital Signs Vital signs: Vital Signs Temp 97.5 F L 02/29/24 08:00 Pulse 116 H 02/29/24 08:00 Resp 16 02/29/24 08:00 BP 125/55 02/29/24 08:00 Pulse Ox 92 L 02/29/24 08:00 FiO2 Intake & Output 02/28/24 02/29/24 02/29/24 18:59 06:59 18:59 Output Total 325 Balance -325 Weight 100.5 kg Output: Urine 325 Straight 325 Other: Voiding Method External Catheter External Catheter External Catheter # Voids 1 # Bowel Movements 1 - Labs CBC & Chem 7: 02/29/24 07:37 02/29/24 07:37 Labs: Abnormal Lab Results - Last 24 Hours (Table) 02/28/24 02/28/24 02/28/24 Range/Units 01:01 01:01 11:23 WBC (3.8-10.6) k/uL RBC (4.30-5.90) m/uL Hgb (13.0-17.5) gm/dL Hct (39.0-53.0) % MCV (80.0-100.0) fL RDW (11.5-15.5) % Plt Count (150-450) k/uL Neutrophils # (1.3-7.7) k/uL VBG pH (7.31-7.41) VBG pCO2 (37-51) mmHg VBG HCO3 (24-28) mmol/L Chloride (98-107) mmol/L Carbon Dioxide (22-30) mmol/L BUN (9-20) mg/dL Creatinine (0.66-1.25) mg/dL Glucose (74-99) mg/dL POC Glucose (mg/dL) 192 H (70-110) mg/dL Ammonia (<30) umol/L Urine Osmolality 390 L (400-1100) mOsm/kg Ur Random Sodium <20 L (40-220) mmol/L 02/28/24 02/28/24 02/28/24 Range/Units 16:38 16:42 20:31 WBC (3.8-10.6) k/uL RBC (4.30-5.90) m/uL Hgb (13.0-17.5) gm/dL Hct (39.0-53.0) % MCV (80.0-100.0) fL RDW (11.5-15.5) % Plt Count (150-450) k/uL Neutrophils # (1.3-7.7) k/uL VBG pH (7.31-7.41) VBG pCO2 (37-51) mmHg VBG HCO3 (24-28) mmol/L Chloride (98-107) mmol/L Carbon Dioxide (22-30) mmol/L BUN (9-20) mg/dL Creatinine (0.66-1.25) mg/dL Glucose (74-99) mg/dL POC Glucose (mg/dL) 173 H 180 H (70-110) mg/dL Ammonia 89 H (<30) umol/L Urine Osmolality (400-1100) mOsm/kg Ur Random Sodium (40-220) mmol/L 02/29/24 02/29/24 02/29/24 Range/Units 06:17 07:37 07:37 WBC 12.6 H (3.8-10.6) k/uL RBC 3.30 L (4.30-5.90) m/uL Hgb 10.5 L (13.0-17.5) gm/dL Hct 33.2 L (39.0-53.0) % MCV 100.4 H (80.0-100.0) fL RDW 17.6 H (11.5-15.5) % Plt Count 92 L (150-450) k/uL Neutrophils # 10.4 H (1.3-7.7) k/uL VBG pH (7.31-7.41) VBG pCO2 (37-51) mmHg VBG HCO3 (24-28) mmol/L Chloride 112 H (98-107) mmol/L Carbon Dioxide 15 L (22-30) mmol/L BUN 85 H (9-20) mg/dL Creatinine 1.76 H (0.66-1.25) mg/dL Glucose 195 H (74-99) mg/dL POC Glucose (mg/dL) 210 H (70-110) mg/dL Ammonia (<30) umol/L Urine Osmolality (400-1100) mOsm/kg Ur Random Sodium (40-220) mmol/L 02/29/24 02/29/24 Range/Units 07:37 07:37 WBC (3.8-10.6) k/uL RBC (4.30-5.90) m/uL Hgb (13.0-17.5) gm/dL Hct (39.0-53.0) % MCV (80.0-100.0) fL RDW (11.5-15.5) % Plt Count (150-450) k/uL Neutrophils # (1.3-7.7) k/uL VBG pH 7.42 H (7.31-7.41) VBG pCO2 28 L (37-51) mmHg VBG HCO3 18 L (24-28) mmol/L Chloride (98-107) mmol/L Carbon Dioxide (22-30) mmol/L BUN (9-20) mg/dL Creatinine (0.66-1.25) mg/dL Glucose (74-99) mg/dL POC Glucose (mg/dL) (70-110) mg/dL Ammonia 45 H (<30) umol/L Urine Osmolality (400-1100) mOsm/kg Ur Random Sodium (40-220) mmol/L Assessment and Plan Plan: Assessment: 1. Acute kidney injury secondary to ATN. Creatinine stable at 1.76. No hydronephrosis noted on kidney ultrasound. Baseline creatinine near 1. 2. Acute Evoxac respiratory failure. 3. Volume overload. 4. Alcohol induced liver cirrhosis. 5. Pulmonary hypertension. 6. Acute CVA. Microinfarcts noted on MRI. 7. Metabolic acidosis secondary to acute kidney injury and compensatory for underlying respiratory alkalosis. Plan: Increase Lasix to 40 mg IV twice daily. Check abdominal ultrasound to assess for ascites. Add oral bicarb. Add 1200 cc fluid restriction. Continue to monitor renal function and urine output.
--- NOTE | 2024-02-29 11:10 | XR ---
EXAMINATION TYPE: XR chest 1V portable DATE OF EXAM: 02/29/2024 COMPARISON: 02/26/2024 HISTORY: Shortness of breath TECHNIQUE: Single frontal view of the chest is obtained. FINDINGS: Diffuse interstitial pattern with bilateral consolidation and pleural effusion. No pneumot horax. Degenerative changes spine. Metallic device overlying the thorax. Arthropathy of the shoulders . IMPRESSION: Findings most typical of CHF with bilateral pleural effusion and pulmonary edema. [facility], , 02/29/2024 11:08 AM
[2024-02-29 11:32] LABS: Glucose,Whole Blood 205 mg/dL (70-110)
[2024-02-29] MEDS: SODIUM BICARBONATE TAB 650 MG TAB PO SCH (11:49)
[2024-02-29] MEDS: LACTULOSE 20 GM/30 ML CUP PO SCH (11:50)
--- NOTE | 2024-02-29 12:37 | US ---
EXAMINATION TYPE: US abdomen limited DATE OF EXAM: 02/29/2024 COMPARISON: NONE CLINICAL INDICATION: Male, 68 years old with history of ascites; ascites No fluid visualized. IMPRESSION: No evidence of ascites. [facility], , 02/29/2024 12:35 PM
--- NOTE | 2024-02-29 12:55 | CT ---
EXAMINATION TYPE: CT soft tissue neck wo con CT DLP: 346.8 mGycm, Automated exposure control for dose reduction was used. DATE OF EXAM: 02/29/2024 12:48 PM COMPARISON: None. CLINICAL INDICATION: Male, 68 years old with history of dysphagia, dysphagia TECHNIQUE: Standard enhanced CT of the neck. Axial sections with coronal and sagittal reformats were obtained. Contrast used: mL of , (None if empty) Oral contrast used: (None if empty) FINDINGS: Brain: Visualized portions are grossly unremarkable. Intracranial atherosclerosis noted. Orbits: Unremarkable Sinuses: Grossly unremarkable. Spaces of the neck: Clear and symmetric. No finding of lung the esophagus or within the mucosa around the oropharynx to correlate with dysphagia. Musculoskeletal: No acute osseous pathology. Degenerative disc disease changes of the visualized spin e are present. Lymph nodes: Multiple nonenlarged lymph nodes are seen along both anterior chains of the neck. Vascular structures: Visualized major arteries are patent without evidence of aneurysm. Atheroscleros is of the carotid bifurcations. Thoracic Inlet/airway: Airway is patent. No suspicious mucosal mass. Moderate bilateral pleural effus ions. Pulmonary vascular congestion. Soft tissues/Thyroid: Thyroid and remainder of the soft tissues are unremarkable. Other: none. IMPRESSION 1. No finding to correlate with dysphagia. Consider speech pathology evaluation. 2. Bilateral pleural effusions with pulmonary vascular congestion correlate for congestive heart fail ure. [facility], , 02/29/2024 12:53 PM
[2024-02-29 15:51] VITALS: BMI 31.8
[2024-02-29 16:29] LABS: Glucose,Whole Blood 234 mg/dL (70-110)
[2024-02-29] MEDS: LORazepam 2 MG/ML INJ IV PRN (17:20)
--- NOTE | 2024-02-29 18:07 | P.PN ---
Subjective Progress Note Date: 02/29/24 Hospital Course: 68-year-old male with history of prior alcohol dependence presenting with right- sided blurry vision which lasted 5 minutes. He is also complaining of worsening weakness and new onset jaundice for the last 2 months. In the ED, temperature was 98.3, pulse 99, respiratory rate 16, blood pressure 149/72, saturating at 95% on room air. WBC 8.5, hemoglobin 10.8, platelet 94, INR 1.4, sodium 132, creatinine 0.75, total bili 5.2, conjugated bili 0.1, unconjugated 2.3, AST 59, ALT 18, ALP 113, troponin 0. due to 9, lipase 816, large blood and urinalysis. EKG independently interpreted, shows sinus tachycardia. CT head does not show any acute process. Patient admitted for worsening jaundice and possible TIA. GI and neurology consulted. Abdominal ultrasound does not show any portal vein thrombosis. Carotid Doppler ultrasound shows less than 50% stenosis bilateral carotids. MRI of the brain shows multifocal infarcts likely embolic in nature. MRI of the abdomen shows liver cirrhosis and portal hypertension with splenomegaly. Echocardiogram shows ejection fraction 60 to 65%. Severely increased left atrial volume. Trace MR. Mild to moderate . Mild to moderate TR. Negative bubble study. Patient continue be on cardiac telemetry. Patient reports slight improvement in his symptoms today. Symptomatic management will be continued with diuretics. Nephrology is consulted for YI due to ATN. Creatinine level stable. -GI note reviewed, outpatient follow-up, abdominal MRI shows liver cirrhosis, portal hypertension and splenomegaly, increase protein intake -Acute hepatitis panel is negative -Recent CT abdomen pelvis from last month showed splenomegaly and left upper quadrant varices with splenorenal shunt, may be seen in setting of portal venous hypertension Urinalysis shows proteinura, hematuria, hyaline casts Renal and bladder US shows no obstructive uropathy chloride 106, bicarb 15 MRI of the brain shows multifocal infarcts likely embolic in nature. Echo shows ejection fraction 60 to 65% Bubble study negative Subjective: 02/29/24 Patient seen and examined at bedside. Continues to be very confused. Cr worsening today. Nephrology following. Will increase lactulose. Family discussed goals of care, will meet with hospice, and is now DNR. Given Ativan for comfort care. Pertinent Labs: WBC 12.6, hemoglobin 10.5, platelet count 92, sodium 139, potassium 4.6 chloride 112, bicarb 15, BUN 85, creatinine 1.76, glucose 195, magnesium 2.2 Imaging: CT neck - unremarkable Vitals Signs Reviewed. General: nontoxic, no distress, appears at stated age, obese Derm: warm, dry, jaundice, stage II ulcer on left buttock Head: atraumatic, normocephalic, symmetric Eyes: EOMI, no lid lag, scleral icterus, pupils equal round reactive to light ENT: Nose and ears atraumatic, oropharynx is erythematous with no tonsillar exudate Neck: No thyromegaly, supple Mouth: no lip lesion, mucus membranes moist Cardiovascular: S1S2 reg, 3/6 systolic murmur, 2+ pitting edema RLE, 1+ pitting edema LLE Lungs: Decreased breath sounds bilaterally, no rhonchi, no rales, no wheeze, no accessory muscle use Abdominal: soft, nontender to palpation, no guarding, no appreciable organomegaly Ext: no gross muscle atrophy, muscle strength muscle strength 5 out of 5 in all 4 extremities, no contractures Neuro: CN II-XII grossly intact Psych: Alert, oriented, appropriate affect Assessment and Plan: # Decompensated cirrhosis secondary to history of alcoholism #Splenomegaly #Normocytic anemia secondary to above #Thrombocytopenia secondary to above #Elevated INR, secondary to above #Hyperbilirubinemia #Hypoalbuminemia secondary above #Hypervolemic hyponatremia #Elevated lipase -IV Protonix 40 daily Continue to monitor sodium level Continue to monitor BMP and CBC MELD-Na = 25 points, 19.6% estimated 3-month mortality Ammonia 114 --> 49; BMs/day is only 3 in last 24 hours; increase lactulose 30 mg p.o. 4 times daily -abdominal US was ordered to look for ascites, and did not identify - SBP less likely, but will empirically cover with ceftriaxone for now given patient's condition Strict I's and O's, Daily weights Prognosis guarded, family discussion today regarding goals of care --> is interested in hospice, but wants to discuss with her two sons who are flying into town, met with hospice -added ativan PRN for anxiety control, will also add dilaudid PRN for pain control #Acute Kidney Injury, likely secondary to ATN Ordered Urine Na < 20, Creatinine, urea, osm; results pending nephrology is consulted; note reviewed; Lasix 20 --> 40 mg IV every 12 hours monitor BMP and mag #Non-anion gap metabolic acidosis Ordered urine osmolality, urine pH, urine potassium, urine sodium, urine chloride IV normal saline is discontinued #Oropharyngitis Order respiratory viral panel -CT soft tissue of the neck was ordered and reviewed as negative for acute pathology #Brief episode of blurry vision #Multifocal stroke, likely embolic Neurology signed off Continue on aspirin 81 mg p.o. daily Patient will need cardiac event monitoring for 30 days to rule out paroxysmal A- fib unless discharged to hospice #Stage II ulceration on left buttock, present on admission -Local wound care -Noninfected -Topical zinc oxide paste as needed #Weakness -PT ordered #Elevated troponin, ACS ruled out -No active chest pain -Continue telemetry monitoring -Downtrending #Hematuria -Outpatient urology follow-up -Patient is coagulopathic due to liver disease #Hyperglycemia secondary to Type II DM - Monitor serum glucose level - low dose SSI, diabetes education on discharge DVT ppx: SCDs Code status: Full code Anticipated discharge place: Pending clinical course Anticipated discharge time: pending clinical course I saw and evaluated the patient during the paez and critical portions of this encounter, and discussed the case in detail with the resident author of this note, I agree with the Assessment and Plan, and my changes, if any, are highlighted in blue. Objective - Vital Signs Vital signs: Vital Signs Temp 97.7 F 02/29/24 04:00 Pulse 121 H 02/29/24 04:00 Resp 24 02/29/24 04:00 BP 139/72 02/29/24 04:00 Pulse Ox 94 L 02/29/24 04:00 FiO2 Intake & Output 02/28/24 02/29/24 02/29/24 18:59 06:59 18:59 Output Total 325 Balance -325 Weight 100.5 kg Output: Urine 325 Straight 325 Other: Voiding Method External Catheter External Catheter # Voids 1 # Bowel Movements 1 - Labs CBC & Chem 7: 02/29/24 07:37 02/29/24 07:37 Labs: Abnormal Lab Results - Last 24 Hours (Table) 02/28/24 02/28/24 02/28/24 Range/Units 01:01 01:01 07:08 RBC 3.15 L (4.30-5.90) m/uL Hgb 10.1 L (13.0-17.5) gm/dL Hct 32.1 L (39.0-53.0) % MCV 101.7 H (80.0-100.0) fL RDW 17.4 H (11.5-15.5) % Plt Count 81 L (150-450) k/uL Sodium (137-145) mmol/L Carbon Dioxide (22-30) mmol/L BUN (9-20) mg/dL Creatinine (0.66-1.25) mg/dL Glucose (74-99) mg/dL POC Glucose (mg/dL) (70-110) mg/dL Ammonia (<30) umol/L Urine Osmolality 390 L (400-1100) mOsm/kg Ur Random Sodium <20 L (40-220) mmol/L 02/28/24 02/28/24 02/28/24 Range/Units 07:08 11:23 16:38 RBC (4.30-5.90) m/uL Hgb (13.0-17.5) gm/dL Hct (39.0-53.0) % MCV (80.0-100.0) fL RDW (11.5-15.5) % Plt Count (150-450) k/uL Sodium 135 L (137-145) mmol/L Carbon Dioxide 17 L (22-30) mmol/L BUN 78 H (9-20) mg/dL Creatinine 1.75 H (0.66-1.25) mg/dL Glucose 189 H (74-99) mg/dL POC Glucose (mg/dL) 192 H 173 H (70-110) mg/dL Ammonia (<30) umol/L Urine Osmolality (400-1100) mOsm/kg Ur Random Sodium (40-220) mmol/L 02/28/24 02/28/24 02/29/24 Range/Units 16:42 20:31 06:17 RBC (4.30-5.90) m/uL Hgb (13.0-17.5) gm/dL Hct (39.0-53.0) % MCV (80.0-100.0) fL RDW (11.5-15.5) % Plt Count (150-450) k/uL Sodium (137-145) mmol/L Carbon Dioxide (22-30) mmol/L BUN (9-20) mg/dL Creatinine (0.66-1.25) mg/dL Glucose (74-99) mg/dL POC Glucose (mg/dL) 180 H 210 H (70-110) mg/dL Ammonia 89 H (<30) umol/L Urine Osmolality (400-1100) mOsm/kg Ur Random Sodium (40-220) mmol/L
[2024-02-29 20:13] LABS: Glucose,Whole Blood 194 mg/dL (70-110)
[2024-02-29] MEDS: FUROSEMIDE 10 MG/ML 4 ML VIAL IV SCH (20:34)
[2024-03-01 00:40] VITALS: PULSE 107
[2024-03-01 06:28] LABS: Glucose,Whole Blood 216 mg/dL (70-110)
[2024-03-01 06:39] LABS: Anisocytosis Slight; Basophils % (A) 0 %; Eosinophils % (A) 0 %; HCT 32.8 % (39.0-53.0); HGB 10.5 gm/dL (13.0-17.5); Hypochromasia Moderate; Lymphocytes # (A) 1.8 k/uL (1.0-4.8); Lymphocytes % (A) 14 %; MCH 32.2 pg (25.0-35.0); MCV 100.8 fL (80.0-100.0); Macrocytosis Moderate; Mean Platelet Volume 9.1; Monocytes # (A) 0.5 k/uL (0-1.0); Monocytes % (A) 4 %; Neutrophils # (A) 10.5 k/uL (1.3-7.7); Neutrophils % (A) 78 %; RBC 3.25 m/uL (4.30-5.90); RDW 18.4 % (11.5-15.5); WBC 13.4 k/uL (3.8-10.6)
[2024-03-01 06:58] LABS: African American GFR (CKD) 35 (>60 ml/min/1.73 sqM); Anion Gap 11 mmol/L; Blood Urea Nitrogen 100 mg/dL (9-20); Calcium 9.2 mg/dL (8.4-10.2); Carbon Dioxide 17 mmol/L (22-30); Chloride 113 mmol/L (98-107); Glucose 208 mg/dL (74-99); Magnesium 2.5 mg/dL (1.6-2.3); Non-African American GFR(CKD) 30 (>60 ml/min/1.73 sqM); Potassium 4.7 mmol/L (3.5-5.1); Sodium 141 mmol/L (137-145)
[2024-03-01 07:23] LABS: Platelet Count 97 k/uL (150-450)
--- NOTE | 2024-03-01 10:16 | P.PN ---
Subjective Patient is seen in follow-up for acute kidney injury. Renal function worsening. Currently on IV Lasix. Urine output remains low. Resting in bed. Poor historian. present at bedside. Vital signs are stable. General: No acute distress. HEENT: Head exam is unremarkable. On nasal cannula. LUNGS: Scattered rhonchi. HEART: Rate and Rhythm are regular. ABDOMEN: Nontender. Mild distention noted. EXTREMITITES: 1+ edema. Objective - Vital Signs Vital signs: Vital Signs Temp 98.1 F 03/01/24 03:27 Pulse 107 H 03/01/24 03:27 Resp 26 H 03/01/24 03:27 BP 132/65 03/01/24 03:27 Pulse Ox 91 L 03/01/24 03:27 FiO2 Intake & Output 02/29/24 03/01/24 03/01/24 18:59 06:59 18:59 Output Total 350 Balance -350 Weight 100.5 kg 100 kg Output: Urine 350 Other: Voiding Method External Catheter External Catheter # Bowel Movements 1 - Labs CBC & Chem 7: 03/01/24 06:11 03/01/24 06:11 Labs: Abnormal Lab Results - Last 24 Hours (Table) 02/29/24 02/29/24 02/29/24 Range/Units 11:30 16:27 20:11 WBC (3.8-10.6) k/uL RBC (4.30-5.90) m/uL Hgb (13.0-17.5) gm/dL Hct (39.0-53.0) % MCV (80.0-100.0) fL RDW (11.5-15.5) % Plt Count (150-450) k/uL Neutrophils # (1.3-7.7) k/uL Chloride (98-107) mmol/L Carbon Dioxide (22-30) mmol/L BUN (9-20) mg/dL Creatinine (0.66-1.25) mg/dL Glucose (74-99) mg/dL POC Glucose (mg/dL) 205 H 234 H 194 H (70-110) mg/dL Magnesium (1.6-2.3) mg/dL Ammonia (<30) umol/L 03/01/24 03/01/24 03/01/24 Range/Units 06:11 06:11 06:11 WBC 13.4 H (3.8-10.6) k/uL RBC 3.25 L (4.30-5.90) m/uL Hgb 10.5 L (13.0-17.5) gm/dL Hct 32.8 L (39.0-53.0) % MCV 100.8 H (80.0-100.0) fL RDW 18.4 H (11.5-15.5) % Plt Count 97 L (150-450) k/uL Neutrophils # 10.5 H (1.3-7.7) k/uL Chloride 113 H (98-107) mmol/L Carbon Dioxide 17 L (22-30) mmol/L BUN 100 H (9-20) mg/dL Creatinine 2.19 H (0.66-1.25) mg/dL Glucose 208 H (74-99) mg/dL POC Glucose (mg/dL) (70-110) mg/dL Magnesium 2.5 H (1.6-2.3) mg/dL Ammonia 107 H (<30) umol/L 03/01/24 Range/Units 06:27 WBC (3.8-10.6) k/uL RBC (4.30-5.90) m/uL Hgb (13.0-17.5) gm/dL Hct (39.0-53.0) % MCV (80.0-100.0) fL RDW (11.5-15.5) % Plt Count (150-450) k/uL Neutrophils # (1.3-7.7) k/uL Chloride (98-107) mmol/L Carbon Dioxide (22-30) mmol/L BUN (9-20) mg/dL Creatinine (0.66-1.25) mg/dL Glucose (74-99) mg/dL POC Glucose (mg/dL) 216 H (70-110) mg/dL Magnesium (1.6-2.3) mg/dL Ammonia (<30) umol/L Assessment and Plan Plan: Assessment: 1. Acute kidney injury secondary to ATN. Renal function worsening with diuresis. Creatinine 2.19 today. Urine output remains low. No hydronephrosis noted on kidney ultrasound. Baseline creatinine near 1. 2. Acute hypoxic respiratory failure. 3. Volume overload. 4. Alcohol induced liver cirrhosis. 5. Pulmonary hypertension. 6. Acute CVA. Microinfarcts noted on MRI. 7. Metabolic acidosis secondary to acute kidney injury and compensatory for underlying respiratory alkalosis. On oral bicarb. Better. Plan: Maintain IV Lasix. Discussed renal replacement therapy with family. Family meeting with hospice today.
[2024-03-01 11:24] VITALS: BP 116/54; RESP 16; TEMP 97.8
--- NOTE | 2024-03-01 18:20 | P.DS ---
Providers Date of admission: 02/21/24 12:55 Expected date of discharge: 03/01/24 Attending physician: Elicia Maria MD Consults: 02/21/24 14:57 Consult Physician Routine Consulting Provider: Adriano Norman Consult Reason/Comments: blurry vision/TIA Do you want consulting provider notified?: Yes 02/26/24 10:45 Consult Physician Urgent Consulting Provider: Zenaida Beltrán Consult Reason/Comments: YI and ATN Do you want consulting provider notified?: Yes Primary care physician: [facility] Course: Discharge diagnoses; # Decompensated cirrhosis secondary to history of alcoholism with splenomegaly, Normocytic anemia, Thrombocytopenia, Elevated INR, Hyperbilirubinemia, Hypoalbuminemia #Hypervolemic hyponatremia, Elevated lipase #Acute Kidney Injury, likely secondary to ATN, with Non-anion gap metabolic acidosis #Oropharyngitis #Multifocal stroke, likely embolic #Stage II ulceration on left buttock, present on admission #Elevated troponin, ACS ruled out #Hyperglycemia secondary to Type II DM Hospital course; 68-year-old male with history of prior alcohol dependence presenting with right- sided blurry vision which lasted 5 minutes. He is also complaining of worsening weakness and new onset jaundice for the last 2 months. In the ED, temperature was 98.3, pulse 99, respiratory rate 16, blood pressure 149/72, saturating at 95% on room air. WBC 8.5, hemoglobin 10.8, platelet 94, INR 1.4, sodium 132, creatinine 0.75, total bili 5.2, conjugated bili 0.1, unconjugated 2.3, AST 59, ALT 18, ALP 113, troponin 0. due to 9, lipase 816, large blood and urinalysis. EKG independently interpreted, shows sinus tachycardia. CT head does not show any acute process. Patient admitted for worsening jaundice and possible TIA. GI and neurology consulted. Abdominal ultrasound does not show any portal vein thrombosis. Carotid Doppler ultrasound shows less than 50% stenosis bilateral carotids. MRI of the brain shows multifocal infarcts likely embolic in nature. MRI of the abdomen shows liver cirrhosis and portal hypertension with splenomegaly. Echocardiogram shows ejection fraction 60 to 65%. Severely increased left atrial volume. Trace MR. Mild to moderate . Mild to moderate TR. Negative bubble study. Patient continue be on cardiac telemetry. Patient reports slight improvement in his symptoms. Nephrology is consulted for YI due to ATN. Creatinine level stable. During hospital stay patient found to have decompensated cirrhosis due to history of alcoholism and findings of splenomegaly, normocytic anemia, thrombocytopenia, elevated INR, hyperbilirubinemia hypoalbuminemia, hypovolemic natremia with elevated lipase. He was also treated for YI likely due to ATN, with none anion gap metabolic acidosis. He was also treated for episode of blurry vision, likely to be from multifocal stroke likely embolic and subsequently treated. He was also treated for oropharyngitis, later with dysphagia, CT scan of neck was unremarkable. Also during his stay he was treated for elevated troponin, ACS ruled out. He was also found to have stage II ulceration on left buttocks. Patient was treated for decompensated cirrhosis with lactulose and covered for SBP. He initially began to improve before further decompensating. Discussion was had regarding goals of care, and family was interested to pursue hospice care. Patient to be discharged, in poor condition to hospice care. MELD-Na = 25 points, 19.6% estimated 3-month mortality. Hospice to manage above diagnoses, chronic conditions, and palliative/comfort care. General: Moderate distress distress, obese Derm: warm, dry, jaundice, stage II ulcer on left buttock Head: atraumatic, normocephalic, symmetric Eyes: EOMI, no lid lag, scleral icterus, pupils equal round reactive to light ENT: Nose and ears atraumatic, oropharynx is erythematous with no tonsillar exudate Neck: No thyromegaly, supple Mouth: no lip lesion, mucus membranes moist Cardiovascular: S1S2 reg, 3/6 systolic murmur, 2+ pitting edema RLE, 1+ pitting edema LLE Lungs: Decreased breath sounds bilaterally, no rhonchi, no rales, no wheeze, no accessory muscle use Abdominal: soft, nontender to palpation, no guarding, no appreciable organomegaly Ext: no gross muscle atrophy, muscle strength muscle strength 5 out of 5 in all 4 extremities, no contractures Neuro: CN II-XII grossly intact Psych: A+O x0 Dictation was produced using [employer] dictation software. please excuse any grammatical, word or spelling errors. I saw and evaluated the patient during the paez and critical portions of this encounter, and discussed the case in detail with the resident author of this note, I agree with the Assessment and Plan, and my changes, if any, are highlighted in blue. Plan - Discharge Summary Discharge Rx Participant: No New Discharge Prescriptions: New Pantoprazole [Protonix] 40 mg PO AC-BRKFST tab Continue No Known Home Medications Discharge Medication List No Known Home Medications 02/21/24 [History] Pantoprazole [Protonix] 40 mg PO AC-BRKFST tab 03/01/24 [Rx] Follow up Appointment(s)/Referral(s): Debbie Lane III, MD [Primary Care Provider] - 1-2 days [facility] [REFERRING] - 2 Weeks (Gastroenterology follow up for new Dx of liver cirrhosis) [facility], [NON-STAFF] - 1 Week (Agency will call 24-48 hours after discharge to schedule a visit. ) [facility] [NON-STAFF] - As Needed Discharge Disposition: HOME WITH HOSPICE
== END 2024-03-01 11:58 | disposition hospice, inpatient (51) | DRG 432 ==
LOC: EC 08:06 → 3SCARD 12:55
PROVIDERS: ADMIT Family Medicine; ATTEND Family Medicine
DX: K70.30 Alcoholic cirrhosis of liver without ascites (principal); I63.40 Cerebral infarction due to embolism of unspecified cerebral artery; J96.01 Acute respiratory failure with hypoxia; N17.0 Acute kidney failure with tubular necrosis; D68.4 Acquired coagulation factor deficiency; K76.6 Portal hypertension; E87.4 Mixed disorder of acid-base balance; E87.1 Hypo-osmolality and hyponatremia; K92.2 Gastrointestinal hemorrhage, unspecified; K70.40 Alcoholic hepatic failure without coma; I27.20 Pulmonary hypertension, unspecified; L89.322 Pressure ulcer of left buttock, stage 2; D69.6 Thrombocytopenia, unspecified; E11.65 Type 2 diabetes mellitus with hyperglycemia; F10.20 Alcohol dependence, uncomplicated; Z51.5 Encounter for palliative care; Z79.01 Long term (current) use of anticoagulants; Z66 Do not resuscitate; D63.8 Anemia in other chronic diseases classified elsewhere; E88.09 Other disorders of plasma-protein metabolism, not elsewhere classified; D69.59 Other secondary thrombocytopenia; H53.8 Other visual disturbances; E87.70 Fluid overload, unspecified; H91.90 Unspecified hearing loss, unspecified ear; E86.1 Hypovolemia; J02.9 Acute pharyngitis, unspecified; R79.89 Other specified abnormal findings of blood chemistry; R31.9 Hematuria, unspecified; R16.1 Splenomegaly, not elsewhere classified; Z96.643 Presence of artificial hip joint, bilateral; Z87.891 Personal history of nicotine dependence; Z86.718 Personal history of other venous thrombosis and embolism; Z79.899 Other long term (current) drug therapy
CPT/HCPCS: 36415; 70450; 70490; 70551; 71045; 71046; 74183; 76705; 76770; 80048; 80053; 80061; 80074; 81001; 81003; 82140; 82150; 82248; 82570; 82803; 83036; 83605; 83690; 83735; 83935; 84100; 84133; 84300; 84484; 84540; 85025; 85027; 85610; 85730; 87496; 87498; 87502; 87529; 87634; 87635; 87798; 93005; 93270; 93306; 93880; 93976; 94760